=== PATIENT | male | born 1930 | race Caucasian/White ===

== ENCOUNTER 2016-06-17 19:38 | Emergency (ER) | payer MEDICARE, OTHER ==
[~2016-06-17] VITALS: Ht 154.9 cm; Wt 78.5 kg
[~2016-06-17 19:38] MED LIST: ALBU8.5H5 IH; AMIO200T PO; APIX2.5T PO; ASPI-664 PO; ATOR10TA65 PO; BENZ100C70 PO; BUSP10TA2 PO; CARV3.12 PO; DOCU250C58 PO; FERR-55 PO; ICOS1CAP PO; LEVO88TA3 PO; MONT10TA21 PO; OLME5TAB4 PO; PANT40TA3 PO; PRED50TA PO; SPIR25TA76 PO; TERA2CAP PO
[2016-06-17 19:46] VITALS: Ht 154.9 cm; Wt 78.5 kg
--- NOTE | 2016-06-17 20:37 | RADRPT ---
PROCEDURE: XR Chest. CLINICAL INDICATION: Trauma. Chest pain. TECHNIQUE: Single frontal view. COMPARISON: 05/12/2015. FINDINGS: The lungs are clear. The heart size is enlarged. There is calcification in the aorta consistent with atherosclerosis. T here is a left-sided dual lead permanent pacemaker. There is no pleural effusion. There is no pneumothorax. IMPRESSION: 1. Cardiomegaly. 2. Atherosclerosis. 3. Permanent pacemaker. 4. Clear lungs. RPTAT: QQ .Newton Barros MD, MD Date Time Electronically viewed and signed by .Newton Barros MD, MD on 06/17/2016 20:37 .R/
[2016-06-17] MEDS ORDERED: SPIR25TA76 PO (20:49)
[2016-06-17] MEDS ORDERED: OLME5TAB4 PO (20:50)
[2016-06-17] MEDS ORDERED: ASPI-699 PO (20:50)
[2016-06-17] MEDS ORDERED: MONT10TA24 PO (20:50)
[2016-06-17] MEDS ORDERED: PANT40TA4 PO (20:51)
[2016-06-17] MEDS ORDERED: AMIO200T2 PO (20:51)
[2016-06-17] MEDS ORDERED: ATOR10TA65 PO (20:52)
[2016-06-17] MEDS ORDERED: TERA2CAP PO (20:52)
[2016-06-17] MEDS ORDERED: CARV3.1260 PO (20:53)
[2016-06-17] MEDS ORDERED: FER325 PO (20:53)
[2016-06-17] MEDS ORDERED: DOCU250C58 PO (20:54)
[2016-06-17] MEDS ORDERED: OMEG1CAP2 PO (20:54)
[2016-06-17] MEDS ORDERED: ICOS1CAP PO (20:55)
[2016-06-17] MEDS ORDERED: LEVO100T87 PO (20:58)
[2016-06-17] MEDS ORDERED: APIX2.5T PO (20:58)
[2016-06-17] MEDS ORDERED: ALBU90AE INHALATION (20:59)
[2016-06-17] MEDS ORDERED: IBUP-1542 PO (21:55)
[2016-06-17] MEDS ORDERED: ALBU8.5H3 INH (21:55)
[2016-06-17] MEDS ORDERED: AZIT250T94 PO (21:55)
[2016-06-17] MEDS ORDERED: PRED20TA PO (21:55)
--- NOTE | 2016-06-17 22:03 | ERD ---
ER Documentation Chief Complaint Date/Time DATE: 06/17/16 TIME: 22:01 Chief Complaint persistent cough more than 10 days, finished atb 2 days ago hx of ca HPI This is a 85-year-old male who is here for a cough for 10 days. The patient took an antibiotic presumably amoxicillin for 10 days and is not better. Patient is here with his who is also an ER patient and is here with his daughter who all have the same symptoms of 10 days of cough. The patient does not have a fever but says his chest wall is so sore from coughing so much. He is not having chest pain at rest but only with cough. He has a dry cough most the time with an occasional clear productive sputum. No shortness of breath or increased work of breathing no back pain no respiratory distress no abdominal pain vomiting diarrhea. ROS All systems reviewed and are negative except as per history of present illness. Medications Home Meds Active Scripts Prednisone* (Prednisone*) 20 Mg Tab, 60 MG PO DAILY for 5 Days, TAB Prov:TOPHER ROY DO 06/17/16 Albuterol Sulfate* (Proair HFA*) 8.5 Gm Hfa.aer.ad, 2 PUFF INH Q4, #1 INHALER Prov:TOPHER ROY DO 06/17/16 Azithromycin* (Zithromax*) 250 Mg Tablet, 250 MG PO .ZPACK DIRECTED, #6 TAB TAKE 500 MG (2 TABS) THE FIRST DAY THEN 250 MG (1 TAB) DAYS 2-5 Prov:TOPHER ROY DO 06/17/16 Ibuprofen* (Motrin*) 600 Mg Tab, 600 MG PO Q6 for PAIN, #30 TAB Prov:TOPHER ROY DO 06/17/16 Reported Medications Albuterol Sulfate (Proair Respiclick) 90 Mcg Aer.pow.ba, 1 PUFF INHALATION Q4, # 1 BOTTLE 06/17/16 Levothyroxine Sodium* (Levothyroxine Sodium*) 100 Mcg Tablet, 100 MCG PO BEFORE BREAKFAST, #30 TAB 06/17/16 Apixaban* (Eliquis*) 2.5 Mg Tablet, 2.5 MG PO BID, TAB 06/17/16 Icosapent Ethyl (VASCEPA) 1 Gm Capsule, 1 GM PO DAILY, CAP 06/17/16 Docusate Sodium* (Colace*) 250 Mg Capsule, 250 MG PO BID, #60 CAP 06/17/16 [place]-3 Acid Ethyl Esters (Lovaza) 1 Gm Capsule, 4 GM PO DAILY, CAP 06/17/16 Carvedilol* (Carvedilol*) 3.125 Mg Tablet, 3.125 MG PO DAILY, #60 TAB 06/17/16 Ferrous Sulfate* (Ferrous Sulfate*) 325 Mg Tabec, 325 MG PO DAILY, TAB 06/17/16 Atorvastatin Calcium (Atorvastatin Calcium) 10 Mg Tablet, 10 MG PO QHS, #30 TAB 06/17/16 Terazosin Hcl* (Terazosin Hcl*) 2 Mg Capsule, 2 MG PO HS, CAP 06/17/16 Amiodarone Hcl* (Amiodarone Hcl*) 200 Mg Tablet, 200 MG PO DAILY, #30 TAB 06/17/16 Pantoprazole* (Pantoprazole*) 40 Mg Tablet.dr, 40 MG PO DAILY, TAB 06/17/16 Olmesartan Medoxomil (Benicar) 5 Mg Tablet, 5 MG PO DAILY, #30 TAB 06/17/16 Montelukast Sodium* (Montelukast Sodium*) 10 Mg Tablet, 10 MG PO QHS, #30 TAB 06/17/16 Aspirin* (Checo Aspirin* Chew) 81 Mg Tab.chew, 81 MG PO DAILY, TAB.CHEW 06/17/16 Spironolactone* (Aldactone*) 25 Mg Tablet, 25 MG PO DAILY, #30 TAB 06/17/16 Discontinued Reported Medications Apixaban* (Eliquis*) 2.5 Mg Tablet, 2.5 MG PO BID, TAB 05/12/15 Terazosin Hcl* (Terazosin Hcl*) 2 Mg Capsule, 2 MG PO HS, CAP 05/12/15 Amiodarone Hcl* (Amiodarone Hcl*) 200 Mg Tablet, 200 MG PO DAILY, TAB 05/12/15 Pantoprazole* (Protonix*) 40 Mg Tablet.dr, 40 MG PO DAILY, TAB 05/12/15 Spironolactone* (Aldactone*) 25 Mg Tablet, 25 MG PO DAILY, TAB 05/12/15 Olmesartan Medoxomil (Benicar) 5 Mg Tablet, 5 MG PO DAILY, TAB 11/27/15 Montelukast Sodium* (Singulair*) 10 Mg Tablet, 10 MG PO HS, TAB 05/12/15 Levothyroxine Sodium* (Levothyroxine Sodium*) 88 Mcg Tablet, 88 MCG PO AC BREAKFAST, TAB 05/12/15 Icosapent Ethyl (VASCEPA) 1 Gm Capsule, 1 GM PO BID 05/12/15 Ferrous Sulfate* (Ferrous Sulfate*) 325 Mg Tablet, 325 MG PO DAILY, TAB 05/12/15 Docusate Sodium* (Colace*) 250 Mg Capsule, 250 MG PO BID, CAP 05/12/15 Carvedilol* (Coreg*) 3.125 Mg Tablet, 3.125 MG PO BID, TAB 05/12/15 Buspirone Hcl* (Buspirone Hcl*) 10 Mg Tab, 10 MG PO BID, TAB 05/12/15 Atorvastatin Calcium (Atorvastatin Calcium) 10 Mg Tablet, 10 MG PO HS, TAB 05/12/15 Aspirin* (Aspirin* EC) 81 Mg Tablet.dr, 81 MG PO DAILY, TAB 05/12/15 Discontinued Scripts Prednisone* (Prednisone*) 50 Mg Tablet, 50 MG PO once for 5 Days, TAB Take one tablet by mouth once daily for 5 days. Prov:CHRISTINE DIOR 05/12/15 Albuterol Sulfate* (Albuterol Sulfate* HFA) 8.5 Gm Hfa.aer.ad, 2 PUFF IH Q6, #1 EA Prov:CHRISTINE DIOR 05/12/15 Benzonatate* (Tessalon Perle*) 100 Mg Capsule, 200 MG PO Q8H Y for COUGH, #20 CAP Prov:CHRISTINE DIOR 05/12/15 Allergies Allergies: Coded Allergies: No Known Drug Allergy (Verified Allergy, Unknown, 06/17/16) PMhx/Soc History of Surgery: Yes (BILATERAL TKR, PACEMAKER, HERNIA,APPENDIX) Anesthesia Reaction: No Hx Neurological Disorder: No Hx Respiratory Disorders: Yes (asthma) Hx Cardiac Disorders: Yes (HTN, PACEMAKER,HIGH CHOLESTEROL) Hx Psychiatric Problems: No Hx Miscellaneous Medical Probl: Yes (DM, PT HAS MOUTH INFECTION-GETTING IV DIFLUCAN @ [facility]) Hx Alcohol Use: No Hx Substance Use: No Hx Tobacco Use: No Smoking Status: Never smoker FmHx Family History: No coronary disease Physical Exam Vitals Vital Signs Date Time Temp Pulse Resp B/P Pulse Ox O2 Delivery O2 Flow Rate FiO2 06/17/16 19:46 97.7 79 20 111/58 98 Physical Exam Const: Well-developed, well-nourished Head: Atraumatic, normocephalic Eyes: Normal Conjunctiva, PERRLA, EOMI, normal sclera, no nystagmus ENT: Normal External Ears, Nose and Mouth, moist mucus membranes. Neck: Full range of motion. No meningismus, no lymphadenopathy. Resp: Clear to auscultation bilaterally, no wheezing, rhonchi, rales, bilateral anterior chest wall is tender to palpation Cardio: Regular rate and rhythm, no murmurs, S1 S2 present Abd: Soft, non tender x 4, non distended. Normal bowel sounds, no guarding or rebound, no pulsitile abdominal masses or bruits Skin: No petechiae or rashes, no ecchymosis , no maculopapular rash Back: No midline or flank tenderness Ext: No cyanosis, or edema, FROM x 4, normal inspection, neurovascularly intact x 4 Neur: Awake and alert, STR 5/5 x 4, sensation intact x 4, no focal findings, cerebellum intact Psych: Normal Mood and Affect Procedures/MDM PROCEDURE: XR Chest. CLINICAL INDICATION: Trauma. Chest pain. TECHNIQUE: Single frontal view. COMPARISON: 05/12/2015. FINDINGS: The lungs are clear. The heart size is enlarged. There is calcification in the aorta consistent with atherosclerosis. There is a left-sided dual lead permanent pacemaker. There is no pleural effusion. There is no pneumothorax. IMPRESSION: 1. Cardiomegaly. 2. Atherosclerosis. 3. Permanent pacemaker. 4. Clear lungs. RPTAT: QQ .Newton Barros MD, MD Date Time Electronically viewed and signed by .Newton Barros MD, MD on 06/17/2016 20:37 .R/ CC: LEKKOS,APOSTOLOS A. DO Patient has chest wall strain from coughing and bronchitis will treat with Prelone, albuterol and Motrin Departure Diagnosis: Primary Impression: Bronchitis Additional Impression: Chest wall pain Condition: Stable Patient Instructions: Bronchitis With Wheezing (Adult), Chest Wall Strain TOPHER ROY DO Jun 17, 2016 22:03
[2016-06-17 22:38] VITALS: BP 108/56; PULSE 74; RESP 18; TEMP 98.1
== END 2016-06-17 22:39 | disposition home or self-care (01) ==
LOC: E/R 19:38
DX: J20.9 Acute bronchitis, unspecified (principal); R07.89 Other chest pain; I10 Essential (primary) hypertension; E11.9 Type 2 diabetes mellitus without complications; J45.909 Unspecified asthma, uncomplicated; Z79.82 Long term (current) use of aspirin; Z95.0 Presence of cardiac pacemaker
CPT/HCPCS: 71010

== ENCOUNTER 2016-09-03 19:59 | Inpatient (IN) | payer MEDICARE, OTHER ==
[~2016-09-03] VITALS: Ht 160 cm; Wt 75.2 kg
[~2016-09-03 19:59] MED LIST changes: +ALBU8.5H3 INH; -ALBU8.5H5 IH; +ALBU90AE INHALATION; -AMIO200T PO; +AMIO200T2 PO; -ASPI-664 PO; +ASPI-699 PO; +AZIT250T94 PO; -BENZ100C70 PO; -BUSP10TA2 PO; -CARV3.12 PO; +CARV3.1260 PO; +FER325 PO; -FERR-55 PO; +IBUP-1542 PO; +LEVO100T87 PO; -LEVO88TA3 PO; -MONT10TA21 PO; +MONT10TA24 PO; +OMEG1CAP2 PO; -PANT40TA3 PO; +PANT40TA4 PO; +PRED20TA PO; -PRED50TA PO; +SPIR25TA PO; -SPIR25TA76 PO; -TERA2CAP PO; +TERA2CAP3 PO
[2016-09-03] MEDS ORDERED: ONDANSETRON 4 MG INJ IV STA (22:49)
[2016-09-03] MEDS ORDERED: SOD CHLORIDE 0.9% 500 ML IV STA (22:49)
[2016-09-03] MEDS ORDERED: morphine 2 MG INJ IV STA (22:49)
[2016-09-03 23:26] LABS: ADD SCAN DIFF NO
[2016-09-03 23:29] LABS: HEMATOCRIT 32.9 % (42.0-52.0); MEAN CORPUSCULAR HEMOGLOBIN 31.7 pg (29.0-33.0); MEAN CORPUSCULAR HGB CONC 33.4 g/dl (32.0-37.0); MEAN CORPUSCULAR VOLUME 94.8 fl (82.0-101.0); MEAN PLATELET VOLUME 8.9 fl (7.4-10.4); PLATELET COUNT 206 10^3/UL (140-415); RED BLOOD COUNT 3.47 10^6/ul (4.70-6.10); RED CELL DISTRIBUTION WIDTH 13.2 % (11.5-14.5); WHITE BLOOD COUNT 5.8 10^3/ul (4.8-10.8)
[2016-09-03 23:40] LABS: ALBUMIN 3.3 g/dl (3.3-4.9)
[2016-09-03 23:41] LABS: POTASSIUM 5.2 mmol/L (3.5-5.1)
[2016-09-03 23:43] LABS: ALBUMIN/GLOBULIN RATIO 0.91; BILIRUBIN,INDIRECT 0.2 mg/dl (0-1.1); BILIRUBIN,TOTAL 0.2 mg/dl (0.2-1.3); CREATININE 0.93 mg/dl (0.61-1.24); TOTAL PROTEIN 6.9 g/dl (6.1-8.1)
[2016-09-03 23:44] LABS: CALCIUM 8.4 mg/dl (8.4-10.2)
--- NOTE | 2016-09-03 23:45 | RADRPT ---
PROCEDURE: CT Abdomen and Pelvis without contrast. CLINICAL INDICATION: Nausea and diarrhea. History of appendectomy and hernia. TECHNIQUE: A CT scan of the abdomen and pelvis was performed without intravenous contrast. Diane l and sagittal reformatted images were generated. Images were reviewed on a high-resolution PACS wor kstation. CTDIvol: 14.79 mGy. DLP: 845.94 mGy-cm. One or more of the following dose reduction techniques were used: - Automated exposure control. - Adjustment of the mA and/or kV according to patient size. - Use of iterative reconstruction technique. COMPARISON: 03/21/2013 FINDINGS: There are minimal atelectatic changes at the right lung base. Cardiac pacemaker leads are partially imaged. Evaluation of the abdominal and pelvic viscera is limited by the lack of oral and intravenous contra st. The liver is unremarkable. The gallbladder is normal in appearance. The common bile duct is not dila perla. The spleen is not enlarged. No pancreatic lesion is identified and there is no pancreatic ducta l dilatation. The adrenal glands are unremarkable. The kidneys are normal in size. There is mild symmetric perinephric fat stranding, probably age-rela perla. No hydronephrosis is seen. No urinary stone is identified. The small and large bowel are normal in caliber. There is no bowel wall thickening.There is moderate descending and sigmoid colon diverticulosis. The appendix is normal. The urinary bladder is unremarkable. The pelvic organs are within normal limits. There is a moderate fat containing right inguinal hernia. Mild new abdominal and pelvic retroperitoneal fat stranding is noted, asymmetric to the left. There is also increased prominence of the retroperitoneal lymph nodes in these regions, the largest measur ing 9 mm short axis in the left periaortic region. There is no ascites. No pneumoperitoneum is seen. There are moderate arterial calcifications. No suspicious osseous lesion is idenitified. There are moderate degenerative changes at L2-L3 and L4 -L5. IMPRESSION: 1. Mildly abdominal and pelvic retroperitoneal fat stranding, asymmetric to the left. There is also increased prominence of the retroperitoneal lymph nodes in these regions. These findings are nonsp ecific but might represent metastatic lymphadenopathy with lymphedema, or possibly an inflammatory p rocess with reactive lymphadenopathy. 2. Normal appendix. 3. Moderate descending and sigmoid colon diverticulosis. 4. No obstructive uropathy or urinary stone. 5. Moderate fat-containing right inguinal hernia. RPTAT: HTAR .Yan Starr MD, Date Time Electronically viewed and signed by .Yan Starr MD, on 09/03/2016 23:45 .R/
[2016-09-04] MEDS ORDERED: PIPER-TAZO 3.375 GM IV (PMX) 100 ML IVPB ONE (01:00)
[2016-09-04] MEDS ORDERED: metroNIDAZOLE 500 MG/NS (PMX) 100 ML IVPB ONE (01:00)
[2016-09-04 01:14] LABS: ADD UMIC NO; URINE BILIRUBIN (Dip) NEGATIVE (NEGATIVE); URINE BLOOD (Dip) NEGATIVE (NEGATIVE); URINE COLOR AMBER (YELLOW); URINE GLUCOSE (Dip) NEGATIVE (NEGATIVE); URINE KETONES (Dip) NEGATIVE (NEGATIVE); URINE LEUKOCYTE ESTERASE (Dip) NEGATIVE (NEGATIVE); URINE NITRITE (Dip) NEGATIVE (NEGATIVE); URINE TOTAL PROTEIN (Dip) NEGATIVE (NEGATIVE); URINE UROBILINOGEN (Dip) 0.2 E.U./dL (0.1-1.0)
[2016-09-04 02:23] LABS: LYMPHOCYTES # 0.6 10^3/ul (0.8-2.9); MONOCYTE # 0.8 10^3/ul (0.3-0.9); NEUTROPHIL # 4.3 10^3/ul (1.6-7.5)
[2016-09-04 02:24] LABS: EOSINOPHILS # 0.1 10^3/ul (0.0-0.5)
[2016-09-04 02:30] VITALS: TEMP 98
--- NOTE | 2016-09-04 02:31 | ERA ---
ER Documentation Chief Complaint Date/Time DATE: 09/04/16 TIME: 02:21 Chief Complaint abd pain, n/v/d HPI This is an 85-year-old male with abdominal pain nausea vomiting diarrhea on and off for the past 3-4 days. Said 2-3 episodes of vomiting which nonbilious nonbloody. 4-5 episodes of diarrhea per day for the past 3 days nonbloody. No fevers no chills no sick contacts no exposures. Pain is mild to moderate intensity crampy in nature and tends to come with an episode of vomiting or diarrhea. ROS All systems reviewed and are negative except as per history of present illness. Medications Home Meds Active Scripts Prednisone* (Prednisone*) 20 Mg Tab, 60 MG PO DAILY for 5 Days, TAB Prov:TOPHER ROY DO 06/17/16 Albuterol Sulfate* (Proair HFA*) 8.5 Gm Hfa.aer.ad, 2 PUFF INH Q4, #1 INHALER Prov:TOPHER ROY DO 06/17/16 Azithromycin* (Zithromax*) 250 Mg Tablet, 250 MG PO .ZPACK DIRECTED, #6 TAB TAKE 500 MG (2 TABS) THE FIRST DAY THEN 250 MG (1 TAB) DAYS 2-5 Prov:TOPHER ROY DO 06/17/16 Ibuprofen* (Motrin*) 600 Mg Tab, 600 MG PO Q6 for PAIN, #30 TAB Prov:TOPHER ROY DO 06/17/16 Reported Medications Albuterol Sulfate (Proair Respiclick) 90 Mcg Aer.pow.ba, 1 PUFF INHALATION Q4, # 1 BOTTLE 06/17/16 Levothyroxine Sodium* (Levothyroxine Sodium*) 100 Mcg Tablet, 100 MCG PO BEFORE BREAKFAST, #30 TAB 06/17/16 Apixaban* (Eliquis*) 2.5 Mg Tablet, 2.5 MG PO BID, TAB 06/17/16 Icosapent Ethyl (VASCEPA) 1 Gm Capsule, 1 GM PO DAILY, CAP 06/17/16 Docusate Sodium* (Colace*) 250 Mg Capsule, 250 MG PO BID, #60 CAP 06/17/16 [place]-3 Acid Ethyl Esters (Lovaza) 1 Gm Capsule, 4 GM PO DAILY, CAP 06/17/16 Carvedilol* (Carvedilol*) 3.125 Mg Tablet, 3.125 MG PO DAILY, #60 TAB 06/17/16 Ferrous Sulfate* (Ferrous Sulfate*) 325 Mg Tabec, 325 MG PO DAILY, TAB 06/17/16 Atorvastatin Calcium (Atorvastatin Calcium) 10 Mg Tablet, 10 MG PO QHS, #30 TAB 06/17/16 Terazosin Hcl* (Terazosin Hcl*) 2 Mg Capsule, 2 MG PO HS, CAP 06/17/16 Amiodarone Hcl* (Amiodarone Hcl*) 200 Mg Tablet, 200 MG PO DAILY, #30 TAB 06/17/16 Pantoprazole* (Pantoprazole*) 40 Mg Tablet.dr, 40 MG PO DAILY, TAB 06/17/16 Olmesartan Medoxomil (Benicar) 5 Mg Tablet, 5 MG PO DAILY, #30 TAB 06/17/16 Montelukast Sodium* (Montelukast Sodium*) 10 Mg Tablet, 10 MG PO QHS, #30 TAB 06/17/16 Aspirin* (Checo Aspirin* Chew) 81 Mg Tab.chew, 81 MG PO DAILY, TAB.CHEW 06/17/16 Spironolactone* (Aldactone*) 25 Mg Tablet, 25 MG PO DAILY, #30 TAB 06/17/16 Allergies Allergies: Coded Allergies: No Known Drug Allergy (Verified Allergy, Unknown, 06/17/16) PMhx/Soc History of Surgery: Yes (BILATERAL TKR, PACEMAKER, HERNIA,APPENDIX) Anesthesia Reaction: No Hx Neurological Disorder: No Hx Respiratory Disorders: Yes (asthma) Hx Cardiac Disorders: Yes (HTN, PACEMAKER,HIGH CHOLESTEROL) Hx Psychiatric Problems: No Hx Miscellaneous Medical Probl: Yes (DM, PT HAS MOUTH INFECTION-GETTING IV DIFLUCAN @ [facility]) Hx Alcohol Use: No Hx Substance Use: No Hx Tobacco Use: No Smoking Status: Never smoker Physical Exam Vitals Vital Signs Date Time Temp Pulse Resp B/P Pulse Ox O2 Delivery O2 Flow Rate FiO2 09/04/16 01:29 98.0 72 18 91/47 94 Room Air 09/03/16 23:03 76 19 110/98 100 Room Air 09/03/16 20:08 97.8 85 20 101/53 99 Physical Exam Const: [] Head: Atraumatic Eyes: Normal Conjunctiva ENT: Normal External Ears, Nose and Mouth. Neck: Full range of motion..~ No meningismus. Resp: Clear to auscultation bilaterally Cardio: Regular rate and rhythm, no murmurs Abd: Soft, non tender, non distended. Normal bowel sounds Skin: No petechiae or rashes Back: No midline or flank tenderness Ext: No cyanosis, or edema Neur: Awake and alert Psych: Normal Mood and Affect Result Diagram: 09/03/16224909/03/162249 Results 24 hrs Laboratory Tests Test 09/03/16 00:00 09/03/16 22:50 Urine Bilirubin NEGATIVE Urine Clarity CLEAR Urine Color MARTINE Urine Glucose NEGATIVE% Urine Hemoglobin NEGATIVE Urine Ketones NEGATIVE Urine Leukocyte Esterase NEGATIVE Urine Nitrite NEGATIVE Urine Specific [place] 1.020 Urine Total Protein NEGATIVE Urine Urobilinogen 0.2 E.U./dL Urine pH 5.5 Alanine Aminotransferase (ALT/SGPT) 22IU/L Albumin 3.3g/dl Albumin/Globulin Ratio 0.91 Alkaline Phosphatase 97IU/L Anion Gap 15 Aspartate Amino Transf (AST/SGOT) 24IU/L Basophils # 0.010^3/ul Basophils % 0.2% Blood Urea Nitrogen 24mg/dl Calcium Level 8.4mg/dl Carbon Dioxide Level 25mmol/L Chloride Level 99mmol/L Creatinine 0.93mg/dl Direct Bilirubin 0.00mg/dl Eosinophils # 0.210^3/ul Eosinophils % 2.6% Globulin 3.60g/dl Glucose Level 150mg/dl Hematocrit 32.9% Hemoglobin 11.0g/dl Indirect Bilirubin 0.2mg/dl Lipase 45U/L Lymphocytes # 1.010^3/ul Lymphocytes % 17.6% Mean Corpuscular Hemoglobin 31.7pg Mean Corpuscular Hemoglobin Concent 33.4g/dl Mean Corpuscular Volume 94.8fl Mean Platelet Volume 8.9fl Monocytes # 1.210^3/ul Monocytes % 21.0% Neutrophils # 3.410^3/ul Neutrophils % 58.3% Nucleated Red Blood Cells # 0.010^3/ul Nucleated Red Blood Cells % 0.0/100WBC Platelet Count 36113^3/UL Potassium Level 5.2mmol/L Red Blood Count 3.4710^6/ul Red Cell Distribution Width 13.2% Sodium Level 134mmol/L Total Bilirubin 0.2mg/dl Total Protein 6.9g/dl White Blood Count 5.810^3/ul Current Medications Medications (Trade) Dose Ordered Sig/Shila Route PRN Reason Start Time Stop Time Status Last Admin Dose Admin Sodium Chloride (NS) 500 ml @ 500 mls/hr Q1H STAT IV 09/03/16 22:49 09/03/16 23:48 DC 09/03/16 23:08 Morphine Sulfate (morphine) 2 mg ONCE STAT IV 09/03/16 22:49 09/03/16 22:50 DC 09/03/16 23:08 Ondansetron HCl 4 mg 4 mg ONCE STAT IV 09/03/16 22:49 09/03/16 22:50 DC 09/03/16 23:08 Piperacillin Sod/ Tazobactam Sod 100 ml @ 200 mls/hr ONCE ONCE IVPB 09/04/16 01:00 09/04/16 01:29 DC 09/04/16 00:55 Metronidazole (Flagyl 500 Mg (Pmx)) 100 ml @ 100 mls/hr ONCE ONCE IVPB 09/04/16 01:00 09/04/16 01:59 DC 09/04/16 01:29 Procedures/MDM Medical decision-making: Patient has evidence of intra-abdominal infection versus early metastatic disease. Patient will need to be admitted for evaluation and management. Patient will be admitted to Dr. Cirilo Coronado Diagnosis: Primary Impression: Abdominal pain Qualified Code: R10.84 - Generalized abdominal pain Condition: Serious JERRY SPEARS Sep 04, 2016 02:31
[2016-09-04 03:54] VITALS: Ht 160 cm; Wt 75.2 kg
[2016-09-04 03:56] VITALS: BP 98/50; PULSE 74; RESP 16
[2016-09-04] MEDS ORDERED: ACETAMINOPHEN 325 MG TAB PO PRN (05:00)
[2016-09-04] MEDS ORDERED: hydrALAzine 20 MG INJ IV PRN ×2 (05:00)
[2016-09-04] MEDS ORDERED: ONDANSETRON 4 MG INJ IV PRN (05:00)
[2016-09-04] MEDS: 1/2 NS + KCL 20 MEQ 1,000 ML IV SCH ×2 (05:59→23:17)
[2016-09-04] MEDS: PIPER-TAZO 3.375 GM IV (PMX) 100 ML IVPB SCH ×4 (06:00→23:34)
[2016-09-04 06:43] LABS: ADD SCAN DIFF NO
[2016-09-04 06:46] LABS: HEMATOCRIT 29.5 % (42.0-52.0); HEMOGLOBIN 9.8 g/dl (14.0-18.0); MEAN CORPUSCULAR HEMOGLOBIN 31.3 pg (29.0-33.0); MEAN CORPUSCULAR HGB CONC 33.2 g/dl (32.0-37.0); MEAN CORPUSCULAR VOLUME 94.2 fl (82.0-101.0); MEAN PLATELET VOLUME 8.8 fl (7.4-10.4); PLATELET COUNT 182 10^3/UL (140-415); RED BLOOD COUNT 3.13 10^6/ul (4.70-6.10); RED CELL DISTRIBUTION WIDTH 13.2 % (11.5-14.5); WHITE BLOOD COUNT 4.3 10^3/ul (4.8-10.8)
[2016-09-04 07:00] VITALS: BP 111/59; RESP 20
[2016-09-04 07:05] LABS: POTASSIUM 4.7 mmol/L (3.5-5.1)
[2016-09-04 07:08] LABS: CALCIUM 8.2 mg/dl (8.4-10.2); CREATININE 0.88 mg/dl (0.61-1.24)
[2016-09-04] MEDS ORDERED: MECL-77 PO (09:44)
[2016-09-04] MEDS ORDERED: HYDR25TA6 PO (09:47)
[2016-09-04] MEDS: ENOXAPARIN 40 MG/0.4 ML SYG SC SCH (09:50)
[2016-09-04 09:58] LABS: ANISOCYTOSIS 1+; EOSINOPHILS # 0.1 10^3/ul (0.0-0.5); HYPOCHROMASIA 1+; LYMPHOCYTES # 0.9 10^3/ul (0.8-2.9); MONOCYTE # 0.4 10^3/ul (0.3-0.9); NEUTROPHIL # 2.7 10^3/ul (1.6-7.5)
[2016-09-04] MEDS: AMIODARONE 200 MG TAB PO SCH (17:10)
--- NOTE | 2016-09-04 17:10 | HP ---
DATE OF ADMISSION: 09/04/2016 CHIEF COMPLAINT: Abdominal pain & patient was unable to void. HISTORY OF PRESENT ILLNESS: The patient is an 85-year-old gentleman with prior medical history positive for hypertension, diabetes mellitus diet controlled, history of pacemaker, history of asthma, history of skin cancer on the arms and he follows with Dr. Barboza and the patient also stated that he follows with Dr. Nunez as a primary care doctor and follows with Dr. Bingham in cardiology. He also stated that he has a known history of BPH and follows with a urologist does not remember the name. The patient was in his usual health until yesterday that he noticed he was not able to urinate and feel bloating and fullness in the lower abdomen. Patient associated that with his BPH symptoms and patient also stated he is compliant with his medication, takes his routine medication. In the emergency room, patient underwent the CT scan of the abdomen and pelvis which revealed: 1. Mild mid abdominal and pelvic retroperitoneal fat stranding, symmetric to the left. There is also increased prominence of the retroperitoneum lymph nodes in this region. The findings were nonspecific, but might represent metastatic lymphadenopathy with lymphedema, possibly inflammatory process with reactive lymphadenopathy. 2. Normal appendix. 3. Moderate descending and sigmoid colon diverticulosis. 4. No obstructive uropathy or urinary stone. 5. Moderate fat containing right inguinal hernia. Patient was given Zofran, morphine and started on IV fluids and also getting Zosyn, Flagyl and admitted for further evaluation and management to medical/ surgical floor. The patient denies any fever or chills. Denies any chest pain , denies any shortness of breath, denies any palpitations, denies any bilateral lower extremities edema. Denies nausea and vomiting. PAST MEDICAL HISTORY: Per HPI. PAST SURGICAL HISTORY: Status post pacemaker, status post bilateral knee surgery, status post hernia repair in 2007. FAMILY HISTORY: Noncontributory. SOCIAL HISTORY: Patient lives at home with his family, patient denies any tobacco use, denies any alcohol use, denies any illicit drug use. ALLERGIES: NO KNOWN ALLERGIES. MEDICATIONS ON ADMISSION: 1. Ibuprofen 2. Zithromax. 3. Albuterol. 4. Prednisone. 5. Aldactone. 6. Aspirin. 7. Montelukast. 8. Benicar. 9. Protonix. 10. Amiodarone. 11. Terazosin. 12. Atorvastatin. 13. Ferrous sulfate. 14. Coreg. 15. Colace. 16. Lovaza. 17. Vascepa. 18. Eliquis. 19. Levothyroxine. 20. Albuterol. REVIEW OF SYSTEMS: A 12-point review of systems is negative unless what mentioned in the HPI. PHYSICAL ASSESSMENT: GENERAL: Well-developed, well-nourished male in no acute distress, alert and oriented x4. VITAL SIGNS: Temperature is 98.7, pulse is 75, blood pressure 111/59, respiratory rate 20, oxygen saturation 98% on room air. HEENT: Head is atraumatic, normocephalic. Pupils equal, round, reactive to light and accommodation. Oral mucosa is pink and moist. NECK: Supple, no cervical lymphadenopathy, no thyromegaly. CHEST: Lungs clear bilaterally. There is no rhonchi, wheezes, rales noted. CARDIOVASCULAR: Normal S1, S2. No murmurs, gallops, clicks, rubs noted. Patient has a permanent pacemaker left chest. ABDOMEN: Round, soft, nondistended, nontender. Bowel sounds present. EXTREMITIES: No edema, clubbing, cyanosis. Pulses equal bilaterally 2+. SKIN: There is no rash or petechiae noted. NEUROLOGICAL: The patient is awake, alert and oriented x4. No focal deficits noted. Motor strength is 5/5 in all extremities. LABORATORY DATA: On admission, CBC: White blood cells 5.8, hemoglobin 11.0, hematocrit 32.9, platelets 206. Chemistry: Sodium is 134, potassium 5.2, chloride 99, carbon dioxide 25, anion gap 15, BUN is 24, creatinine 0.93, AST 24 , ALT 22, alkaline phosphatase 97, lipase is 45. Urinalysis is negative. ASSESSMENT AND PLAN: 1. Urinary retention. Continue patient on terazosin. We will ask Dr. Taylor to see patient in urology consultation. Continue to monitor intake and output. 2. Abdominal pain of unknown etiology. Dr. Dong will be following in gastroenterology consultation. The patient's CT with lymphadenopathy will ask Dr. Toledo who is covering for Dr. Cardona to evaluate the patient in hematology/ oncology consultation. 3. Hypertension. Continue antihypertensive medication from home. 4. Permanent pacemaker. 5. Hypothyroidism. Continue Synthroid. 6. Asthma. Continue breathing treatment. 7. Congestive heart failure. Continue to monitor intake and output. Dr. Bingham will be following the patient in cardiology consultation. We will continue Lovenox for deep venous thrombosis prophylaxis and Protonix for peptic ulcer disease prophylaxis. Further recommendations based on clinical course. Plan of care discussed with Dr. Allen. Dictated By: LEE LARA [employer] DIRECTOR for GARLAND ALLEN MD SR/NTS Conf#: [id number] DID#: [id number] MTDD
--- NOTE | 2016-09-04 19:27 | CONS ---
DATE OF ADMISSION: 09/04/2016 DATE OF CONSULTATION: 09/04/2016 REQUESTING PHYSICIAN: Oswaldo Wilson MD Dear Dr. Wilson: Thank you for asking me to see this patient in urological consultation. HISTORY OF PRESENT ILLNESS: This is an 85-year-old male who presented to the emergency room complai sakina that he has been having difficulty holding his urine. He has had urgency and he had urinary in continence on a couple of occasions. The patient does have a history of nodular prostate, has had a prostate biopsy back in 2005 and that did not show any cancer. At that time, his PSA was elevated and the number is not available at the present. The patient denies having any other urological prob massimo. He describes his stream as regular, is not strong neither is it too slow. He does urinate at night between 2 to 5 times. During the day he voids every half hour or even sometimes every 2 to 3 hours. He denies any history of gross hematuria, no dysuria. PAST MEDICAL HISTORY: Significant for a history of hypertension, diabetes mellitus, history of a pa cemaker, asthma, skin cancer, dyslipidemia, and hypothyroidism. ALLERGIES: THE PATIENT HAS NO KNOWN DRUG ALLERGIES. SOCIAL HISTORY: He does not smoke, does not drink any alcohol, and there is no history of drug abus e. PAST SURGICAL HISTORY: Includes, 1. Bilateral knee replacements. 2. Right inguinal hernia repair but now he does have recurrence of the right inguinal hernia. 3. He also does have a surgery for a pacemaker. HOME MEDICATIONS: Include, 1. Ibuprofen 2. Zithromax. 3. Albuterol. 4. Prednisone. 5. Aldactone. 6. Aspirin. 7. Montelukast. 8. Benicar. 9. Protonix. 10. Amiodarone. 11. Terazosin. 12. Atorvastatin. 13. Ferrous sulfate. 14. Coreg. 15. Colace. 16. Lovaza. 17. Vascepa. 18. Eliquis. 19. Levothyroxine. 20. Albuterol. PHYSICAL EXAMINATION: GENERAL: Reveals an elderly male who is awake, alert. He weighs 75.2 kilograms. His height is 63 inches. HEAD AND NECK: Unremarkable. There is no cervical adenopathy and no nodes. The neck is supple. T here is no stiffness. CHEST: He does have a pacemaker over the chest wall. ABDOMEN: Soft. There is no abdominal mass palpable. He does have a right inguinal hernia and scar in the right inguinal area from prior surgery. EXTERNAL GENITALIA: The penis does have plaque on it and he may have Peyronie's disease. Testes ar e normal. RECTAL: Examination revealed nodular and somewhat hard prostate. EXTREMITIES: Lower extremities reveal no edema. VITAL SIGNS: Temperature is 98.7, pulse is 75, respirations 20, blood pressure 111/59. LABORATORY DATA: CBC shows a white count of 4.3, hemoglobin 9.8, hematocrit 29.5, platelet count 18 2,000. The BUN is 21, creatinine 0.88. Sodium 137, potassium 4.7, chloride 104, CO2 26. Urinalysi s has been negative, in fact, he just urinated and the urine is almost water clear. IMAGING: The CT scan of the abdomen and pelvis again showed mild abdominal and pelvic retroperitone al fat stranding, symmetric to the left. There is also increased prominence of the retroperitoneal lymph nodes in these regions. These findings are nonspecific but might represent metastatic lymphad enopathy with lymphedema or possibly inflammatory process with reactive lymphadenopathy. His append ix is normal, he has moderate descending and sigmoid colon diverticulosis. There is no obstructive uropathy or urinary stone, and he does have a moderate fat containing right inguinal hernia. IMPRESSION: Patient has a hard nodular prostate and retroperitoneal adenopathy. One has to rule ou t cancer of the prostate. The patient is able to urinate and there is no evidence of urinary retent ion at the present. RECOMMENDATION: I ordered a stat PSA on the blood that is drawn at the time of admission and I will see if he does urinate, check his postvoid residual with a bladder scan and also will follow him. He may need a prostate biopsy if the PSA is high to rule out the possibility of prostate cancer with metastasis to the retroperitoneal area. Dictated By: YOUSIF RILEY/PRISCILLA Conf#: [id number] DID#: [id number]
[2016-09-04 19:58] VITALS: BP 115/56; RESP 18
[2016-09-04] MEDS: MONTELUKAST 10 MG TAB PO SCH (21:37)
[2016-09-04] MEDS: TERAZOSIN 2 MG CAP PO SCH (21:37)
[2016-09-05 05:16] LABS: ADD SCAN DIFF NO
[2016-09-05 05:20] LABS: HEMATOCRIT 30.9 % (42.0-52.0); HEMOGLOBIN 10.2 g/dl (14.0-18.0); MEAN CORPUSCULAR HEMOGLOBIN 31.2 pg (29.0-33.0); MEAN CORPUSCULAR VOLUME 94.5 fl (82.0-101.0); PLATELET COUNT 195 10^3/UL (140-415); RED BLOOD COUNT 3.27 10^6/ul (4.70-6.10); RED CELL DISTRIBUTION WIDTH 13.3 % (11.5-14.5); WHITE BLOOD COUNT 4.3 10^3/ul (4.8-10.8)
[2016-09-05 05:29] LABS: POTASSIUM 4.5 mmol/L (3.5-5.1)
[2016-09-05] MEDS: PANTOPRAZOLE (EC) 40 MG TAB PO SCH (05:29)
[2016-09-05] MEDS: LEVOTHYROXINE 100 MCG TAB PO SCH (05:29)
[2016-09-05] MEDS: PIPER-TAZO 3.375 GM IV (PMX) 100 ML IVPB SCH ×4 (05:29→23:14)
[2016-09-05 05:32] LABS: CREATININE 0.82 mg/dl (0.61-1.24)
[2016-09-05 05:33] LABS: CALCIUM 8.3 mg/dl (8.4-10.2)
[2016-09-05 06:03] LABS: THYROID STIMULATING HORMONE 4.7 MIU/L (0.465-4.680)
[2016-09-05 08:17] VITALS: BP 112/52; RESP 18
--- NOTE | 2016-09-05 10:03 | CONS ---
DATE OF ADMISSION: 09/04/2016 DATE OF CONSULTATION: 09/05/2016 CARDIOLOGY CONSULTATION REFERRING PHYSICIAN: Garland Allen MD and Lee Lara NP REASON FOR CONSULTATION: History of sick sinus syndrome, cardiomyopathy CHIEF COMPLAINT: Difficulty with urination, nausea, vomiting, abdominal pain. HISTORY OF PRESENT ILLNESS: Thank you for this referral. History is obtained from the patient and extensive review of the old chart. The patient is also very well known to me from outpatient workup . This is a pleasant 85-year-old gentleman with history of hypertension, diabetes, sick si nus syndrome status post permanent pacemaker with history of nonischemic cardiomyopathy, who was adm itted to the hospital with abdominal pain and difficulty with urination. The patient said starting Friday he started having difficulty with his urination as well as abdominal pain, nausea and vomit ing. He came to workup. Workup done included a CT scan which was abnormal and he was admitted for further workup. The patient denies any chest pain. He said he is able to walk around with no chest pain or pressure. Denies any PND, orthopnea to me. PAST MEDICAL HISTORY: History of hypertension, diabetes, history of nonischemic cardiomyopathy, his tory of sick sinus syndrome status post permanent pacemaker, history of possibly asthma, history of hypothyroidism. SOCIAL HISTORY: The patient does not smoke or drink. Lives with the family. ALLERGIES: NO REPORTED ALLERGIES. MEDICATIONS: Prior to admission include: 1. Ibuprofen 2. Prednisone. 3. Aldactone. 4. Aspirin. 5. Benicar. 6. Amiodarone. 7. Lipitor. 8. Coreg. 9. Lovaza. 10. Vascepa. 11. Eliquis. 12. Levothyroxine. 13. Albuterol. REVIEW OF SYSTEMS: He denied all other except for above-mentioned. PHYSICAL EXAMINATION: VITAL SIGNS: Temperature 98, heart rate of 71, blood pressure 112/52, respiratory rate of 18, satur ating 98%. HEENT: Normocephalic, atraumatic. Pupils are equal. CARDIOVASCULAR: Regular rate and rhythm. Systolic murmur. PULMONARY: With no wheezes or rhonchi. GASTROINTESTINAL: Soft, nontender. EXTREMITIES: With no significant lower extremity edema. NEUROLOGIC: Awake and alert. PSYCHIATRIC: Calm, pleasant. GENITOURINARY: Deferred. LABORATORY DATA: WBC of 4.3, hemoglobin 10.2, platelets of 195. Sodium 138, potassium 4.5, BUN of 12, creatinine 0.82, glucose of 114. TSH is 4.7. PSA is 0.6. CTA of the pelvis and abdomen shows mildly abdominal and pelvic retroperitoneal fat stranding. Asym metric to the left. There is also increased prominence of retroperitoneal lymph node. There is nor mal appendix. Moderate descending and sigmoid colon diverticulosis. ASSESSMENT AND PLAN: 1. History of sick sinus syndrome, status post permanent pacemaker. 2. History of paroxysmal atrial fibrillation on anticoagulation at home, currently off for possible GI workup. 3. Possible prostate cancer with abdominal pain, nausea and vomiting, currently has improved. 4. Urinary retention. Follow up with urology. 5. History of thyroid disorder. 6. History of cardiomyopathy, currently stable. 7. Hypertension, under good control. RECOMMENDATIONS: We will continue with the current cardiac care for now. workup is pending. __ ___ will be continued. We will continue to follow along with you. Dictated By: ZAN WINSLOW MD AV/PRISCILLA Conf#: [id number] DID#: [id number] CC: LEE LARA NP; GARLAND ALLEN MD;*[facility]*
--- NOTE | 2016-09-05 10:03 | RADRPT ---
PROCEDURE: CT Chest without contrast. CLINICAL INDICATION: Lymphadenopathy TECHNIQUE: CT of the chest was performed on a multi-detector scanner without IV contrast. Coronal and sagittal images were reformatted from the axial data set. One or more of the following dose re duction techniques were used: automated exposure control, adjustment of the mA and/or kV according t o patient size, use of iterative reconstruction technique. CTDI = 10.78 mGy. DLP = 407.92 mGy-cm. COMPARISON: None FINDINGS: Left upper lobe bronchiectasis is noted. Bronchial wall thickening and central bronchial ectasia ar e seen bilaterally, compatible with chronic bronchitis. No acute infiltrate, pleural effusion, pulm onary edema or pneumothorax is identified. The central tracheobronchial tree is clear. No pulmonar y nodule or mass is identified. The heart size is normal, without significant pericardial fluid. Coronary arterial and aortic ather osclerotic calcifications are present. There is no thoracic aortic aneurysm. Left-sided dual lead cardiac pacing device is in place. There is nonspecific mild multicompartmental prominence of media stinal lymph nodes, with maximal short-axis diameter of 1.5 cm in the subcarinal region. No axillar y or supraclavicular lymphadenopathy is identified. Visualized portions of the upper abdomen demonstrate no acute abnormality. The surrounding osseous structures are remarkable for degenerative spondylosis of the spine. No osteolytic or osteoblastic lesion is detected. IMPRESSION: 1. There is nonspecific multicompartmental prominence of mediastinal lymph nodes, as described abov e, possibly reactive. Attention on follow-up is recommended. 2. No axillary or supraclavicular lymphadenopathy is identified. 3. Left upper lobe bronchiectasis and findings compatible with chronic bronchitis are noted. 4. No lung mass or focal acute infiltrate is identified. 5. Coronary arterial and aortic atherosclerotic calcifications are present. RPTAT: EE .Blair Pinzon MD, MD Date Time Electronically viewed and signed by .Blair Pinzon MD, MD on 09/05/2016 10:03 .R/
--- NOTE | 2016-09-05 10:05 | RADRPT ---
PROCEDURE: XR Chest. CLINICAL INDICATION: Dyspnea TECHNIQUE: Single frontal chest x-ray. COMPARISON: 06/17/2016 FINDINGS: No acute infiltrate, pleural effusion or pneumothorax is identified. Cardiomediastinal silhouette i s within normal limits. Aortic atherosclerotic calcifications are noted. Left-sided dual lead pace maker remains in place. The osseous structures are unremarkable. IMPRESSION: 1. No evidence of acute cardiopulmonary process. 2. Aortic atherosclerosis. RPTAT: EE .Blair Pinzon MD, MD Date Time Electronically viewed and signed by .Blair Pinzon MD, on 09/05/2016 10:04 .R/
[2016-09-05] MEDS: ASPIRIN 81 MG TAB PO SCH (10:15)
[2016-09-05] MEDS: SPIRONOLACTONE 25 MG TAB PO SCH (10:15)
[2016-09-05] MEDS: FERROUS SULFATE (EC) 325 MG TAB PO SCH (10:15)
[2016-09-05] MEDS: HYDROCHLOROTHIAZIDE 25 MG TAB PO SCH (10:17)
[2016-09-05] MEDS: ENOXAPARIN 40 MG/0.4 ML SYG SC SCH (10:41)
[2016-09-05 11:22] LABS: EOSINOPHILS # 0.2 10^3/ul (0.0-0.5); LYMPHOCYTES # 0.9 10^3/ul (0.8-2.9); MONOCYTE # 0.3 10^3/ul (0.3-0.9); NEUTROPHIL # 2.6 10^3/ul (1.6-7.5)
--- NOTE | 2016-09-05 13:02 | CONS ---
Date/Time of Note Date/Time of Note DATE: 09/05/16 TIME: 12:53 Assessment/Plan Assessment/Plan Chief Complaint/Hosp Course The patient is an 85-year-old gentleman with prior medical history positive for hypertension, diabetes mellitus diet controlled, history of sick sinus syndrome s/p pacemaker, paroxysmal atrial fibrillation, urinary retention , history of asthma, CHF, hypothyroidism, history of skin cancer on the arms, who presented with difficulty urinating. He also stated that he has a known history of BPH and follows with a urologist does not remember the name. Per Dr. Taylor, the patient does have a history of nodular prostate, and has had a prostate biopsy back in 2005 and that did not show any cancer. At that time, his PSA was elevated and the number is not available at the present. During this admission, his PSA was checked and found to be normal at 0.6. In the emergency room, patient underwent the CT scan of the abdomen and pelvis which revealed: 1. Mild mid abdominal and pelvic retroperitoneal fat stranding, symmetric to the left. There is also increased prominence of the retroperitoneum lymph nodes in this region. The findings were nonspecific, but might represent metastatic lymphadenopathy with lymphedema, possibly inflammatory process with reactive lymphadenopathy. 2. Normal appendix. 3. Moderate descending and sigmoid colon diverticulosis. 4. No obstructive uropathy or urinary stone. 5. Moderate fat containing right inguinal hernia. - CT test 09/05/[address], possible reactive and chronic bronchitis. - LDH normal which makes lymphoma less likely - PSA normal as well which makes metastatic prostate cancer less likely. Appreciate urology recommendations. - Discussed with radiology, lymph nodes are too small in both chest and abdomen to biopsy - Will obtain other tumor markers, however suspicion low for malignancy. Would recommend repeat imaging as an outpatient to see whether anything amenable to biopsy. Patient would like to follow-up with his PCP for repeat imaging and further management. Problems: Consultation Date/Type/Reason Admit Date/Time Sep 05, 2016 at 10:03 Date of Consultation: Sep 05, 2016 Type of Consultation: Hematology/Oncology Reason for Consultation Retroperitoneal lymphadenopathy Hx of Present Illness The patient is an 85-year-old gentleman with prior medical history positive for hypertension, diabetes mellitus diet controlled, history of sick sinus syndrome s/p pacemaker, paroxysmal atrial fibrillation, urinary retention , history of asthma, CHF, hypothyroidism, history of skin cancer on the arms. He also stated that he has a known history of BPH and follows with a urologist does not remember the name. The patient was in his usual health until the day prior to admission when he noticed he was not able to urinate and feel bloating and fullness in the lower abdomen. Patient associated that with his BPH symptoms and patient also stated he is compliant with his medication, takes his routine medication. In the emergency room, patient underwent the CT scan of the abdomen and pelvis which revealed: 1. Mild mid abdominal and pelvic retroperitoneal fat stranding, symmetric to the left. There is also increased prominence of the retroperitoneum lymph nodes in this region. The findings were nonspecific, but might represent metastatic lymphadenopathy with lymphedema, possibly inflammatory process with reactive lymphadenopathy. 2. Normal appendix. 3. Moderate descending and sigmoid colon diverticulosis. 4. No obstructive uropathy or urinary stone. 5. Moderate fat containing right inguinal hernia. The patient states that he feels well and wishes to go home. He states that he walked 25 rounds in the hallways. Past Medical History Per HPI Past Surgical History Status post pacemaker, status post bilateral knee surgery, status post hernia repair in 2007. Family History Significant Family History: no pertinent family hx Social History Patient lives at home with his family, patient denies any tobacco use, denies any alcohol use, denies any illicit drug use. Alcohol Use: rarely Smoking Status: Former smoker Exam/Review of Systems Vital Signs Vitals Vital Signs Date Time Temp Pulse Resp B/P Pulse Ox O2 Delivery O2 Flow Rate FiO2 09/05/16 08:17 98.0 71 18 112/52 96 09/04/16 03:56 Room Air Intake and Output 09/04/16 09/04/16 09/05/16 15:00 23:00 07:00 Intake Total 3020 ml 1426 ml Output Total 2900 ml 2500 ml Balance 120 ml -1074 ml Exam Constitutional: alert, oriented Psych: no complaints Neck: supple Respiratory: clear to auscultation Cardiovascular: regular rate and rhythm Gastrointestinal: non-tender, soft Musculoskeletal: nl extremities to inspection Results Result Diagram: 09/05/1642109/05/16421 Results 24 hrs Laboratory Tests Test 09/04/16 14:50 09/05/16 04:22 Prostate Specific Antigen 0.6 White Blood Count 4.3 L Red Blood Count 3.27 L Hemoglobin 10.2 L Hematocrit 30.9 L Mean Corpuscular Volume 94.5 Mean Corpuscular Hemoglobin 31.2 Mean Corpuscular Hemoglobin Concent 33.0 Red Cell Distribution Width 13.3 Platelet Count 195 Mean Platelet Volume 9.0 Neutrophils % 61.0 Band Neutrophils % 8.0 H Lymphocytes % 20.0 Monocytes % 7.0 Eosinophils % 4.0 Neutrophils # 2.6 Lymphocytes # 0.9 Monocytes # 0.3 Eosinophils # 0.2 Sodium Level 138 Potassium Level 4.5 Chloride Level 105 Carbon Dioxide Level 26 Anion Gap 12 Blood Urea Nitrogen 12 # Creatinine 0.82 Glucose Level 114 Calcium Level 8.3 L Lactate Dehydrogenase 287 L B-Type Natriuretic Peptide 272 Thyroid Stimulating Hormone (TSH) 4.700 H Medications Medications Current Medications Potassium Chloride/Sodium Chloride 1,000 ml @ 60 mls/hr [id number] IV Last administered on 09/04/16 23:17; Admin Dose 60 MLS/HR; Start 09/04/16 at 05:00 Piperacillin Sod/ Tazobactam Sod (Zosyn 3.375gm/ 100 ml (Pmx)) 100 ml @ 200 mls /hr Q6 IVPB Last administered on 09/05/16 05:29; Admin Dose 200 MLS/HR; Start 09/04/16 at 06:00 Acetaminophen (Tylenol Tab) 650 mg Q4H PRN PO PAIN AND OR ELEVATED TEMP; Start 09/04/16 at 05:00 Ondansetron HCl (Zofran Inj) 4 mg Q6 PRN IV NAUSEA AND/OR VOMITING; Start 09/04 at 05:00 Enoxaparin Sodium (Lovenox) 40 mg DAILY SC Last administered on 09/05/16 10:41 ; Admin Dose 40 MG; Start 09/04/16 at 09:00 Hydralazine HCl (Apresoline) 10 mg Q4H PRN IV ELEVATED BLOOD PRESSURE; Start at 05:00 Amiodarone HCl (Cordarone) 200 mg MONWEDFRI PO Last administered on 09/04/16 17:10; Admin Dose 200 MG; Start 09/04/16 at 16:00 Aspirin (Aspirin) 81 mg DAILY PO Last administered on 09/05/16 10:15; Admin Dose 81 MG; Start 09/05/16 at 09:00 Carvedilol (Coreg) 3.125 mg BID PO Last administered on 09/05/16 10:18; Admin Dose 3.125 MG; Start 09/04/16 at 21:00 Ferrous Sulfate (Ferrous Sulfate (Ec)) 325 mg DAILY PO Last administered on 10:15; Admin Dose 325 MG; Start 09/05/16 at 09:00 Hydrochlorothiazide (Hydrochlorothiazide) 25 mg DAILY PO Last administered on 10:17; Admin Dose 25 MG; Start 09/05/16 at 09:00 Levothyroxine Sodium (Synthroid) 100 mcg DAILY@06 PO Last administered on 05:29; Admin Dose 100 MCG; Start 09/05/16 at 06:00 Montelukast Sodium (Singulair) 10 mg QHS PO Last administered on 09/04/16 21: 37; Admin Dose 10 MG; Start 09/04/16 at 21:00 Pantoprazole (Protonix Tab) 40 mg DAILY@06 PO Last administered on 09/05/16 05 :29; Admin Dose 40 MG; Start 09/05/16 at 06:00 Spironolactone (Aldactone) 25 mg DAILY PO Last administered on 09/05/16 10:15 ; Admin Dose 25 MG; Start 09/05/16 at 09:00 Terazosin HCl (Hytrin) 2 mg HS PO Last administered on 09/04/16 21:37; Admin Dose 2 MG; Start 09/04/16 at 21:00 JANET IRELAND MD Sep 05, 2016 13:02
[2016-09-05] MEDS: 1/2 NS + KCL 20 MEQ 1,000 ML IV SCH ×2 (14:20→22:28)
--- NOTE | 2016-09-05 19:30 | PN ---
Date/Time of Note Date/Time of Note DATE: 09/05/16 TIME: 19:28 Assessment/Plan VTE Prophylaxis VTE Prophylaxis Intervention: other Lines/Catheters IV [facility]ter Type (from [facility]): Peripheral IV Urinary Cath still in place: No Assessment/Plan Assessment/Plan 1. Urinary retention. Continue patient on terazosin. We will ask Dr. Taylor to see patient in urology consultation. Continue to monitor intake and output. 2. Abdominal pain of unknown etiology. Dr. Dong will be following in gastroenterology consultation. The patient's CT with lymphadenopathy will ask Dr. Toledo who is covering for Dr. Cardona to evaluate the patient in hematology/ oncology consultation. 3. Hypertension. Continue antihypertensive medication from home. 4. Permanent pacemaker. 5. Hypothyroidism. Continue Synthroid. 6. Asthma. Continue breathing treatment. 7. Congestive heart failure. Continue to monitor intake and output. Dr. Bingham will be following the patient in cardiology consultation. We will continue Lovenox for deep venous thrombosis prophylaxis and Protonix for peptic ulcer disease prophylaxis. Further recommendations based on clinical course. Plan of care discussed with Dr. Wilson. Subjective 24 Hr Interval Summary Eyes: no complaints ENT: no complaints Respiratory: no complaints Cardiovascular: no complaints Gastrointestinal: pain Genitourinary: no complaints Musculoskeletal: no complaints Skin: no complaints Neurologic: no complaints Endocrine: no complaints Lymphatic: no complaints Exam/Review of Systems Vital Signs Vitals Vital Signs Date Time Temp Pulse Resp B/P Pulse Ox O2 Delivery O2 Flow Rate FiO2 09/05/16 08:17 98.0 71 18 112/52 96 09/04/16 03:56 Room Air Intake and Output 09/04/16 09/04/16 09/05/16 15:00 23:00 07:00 Intake Total 3020 ml 1426 ml Output Total 2900 ml 2500 ml Balance 120 ml -1074 ml Exam Constitutional: alert, oriented, well developed Psych: nl mood/affect Head: atraumatic Eyes: EOMI, PERRL, nl sclera ENMT: nl external ears & nose Neck: non-tender Respiratory: clear to auscultation Cardiovascular: nl pulses Gastrointestinal: non-tender, soft Musculoskeletal: nl extremities to inspection Extremities: normal pulses Neurological: nl mental status Skin: nl turgor Lymph: nontender Results Result Diagram: 3/23/17 0422 3/23/17 0422 Results 24 hrs Laboratory Tests Test 09/05/16 04:22 White Blood Count 4.3 L Red Blood Count 3.27 L Hemoglobin 10.2 L Hematocrit 30.9 L Mean Corpuscular Volume 94.5 Mean Corpuscular Hemoglobin 31.2 Mean Corpuscular Hemoglobin Concent 33.0 Red Cell Distribution Width 13.3 Platelet Count 195 Mean Platelet Volume 9.0 Neutrophils % 61.0 Band Neutrophils % 8.0 H Lymphocytes % 20.0 Monocytes % 7.0 Eosinophils % 4.0 Neutrophils # 2.6 Lymphocytes # 0.9 Monocytes # 0.3 Eosinophils # 0.2 Sodium Level 138 Potassium Level 4.5 Chloride Level 105 Carbon Dioxide Level 26 Anion Gap 12 Blood Urea Nitrogen 12 # Creatinine 0.82 Glucose Level 114 Calcium Level 8.3 L Lactate Dehydrogenase 287 L B-Type Natriuretic Peptide 272 Thyroid Stimulating Hormone (TSH) 4.700 H Medications Medications Current Medications Potassium Chloride/Sodium Chloride 1,000 ml @ 60 mls/hr [id number] IV Last administered on 09/04/16 23:17; Admin Dose 60 MLS/HR; Start 09/04/16 at 05:00 Piperacillin Sod/ Tazobactam Sod (Zosyn 3.375gm/ 100 ml (Pmx)) 100 ml @ 200 mls /hr Q6 IVPB Last administered on 09/05/16 18:53; Admin Dose 200 MLS/HR; Start 09/04/16 at 06:00 Acetaminophen (Tylenol Tab) 650 mg Q4H PRN PO PAIN AND OR ELEVATED TEMP; Start 09/04/16 at 05:00 Ondansetron HCl (Zofran Inj) 4 mg Q6 PRN IV NAUSEA AND/OR VOMITING; Start 09/04 at 05:00 Enoxaparin Sodium (Lovenox) 40 mg DAILY SC Last administered on 09/05/16 10:41 ; Admin Dose 40 MG; Start 09/04/16 at 09:00 Hydralazine HCl (Apresoline) 10 mg Q4H PRN IV ELEVATED BLOOD PRESSURE; Start at 05:00 Amiodarone HCl (Cordarone) 200 mg MONWEDFRI PO Last administered on 09/04/16 17:10; Admin Dose 200 MG; Start 09/04/16 at 16:00 Aspirin (Aspirin) 81 mg DAILY PO Last administered on 09/05/16 10:15; Admin Dose 81 MG; Start 09/05/16 at 09:00 Carvedilol (Coreg) 3.125 mg BID PO Last administered on 09/05/16 10:18; Admin Dose 3.125 MG; Start 09/04/16 at 21:00 Ferrous Sulfate (Ferrous Sulfate (Ec)) 325 mg DAILY PO Last administered on 10:15; Admin Dose 325 MG; Start 09/05/16 at 09:00 Hydrochlorothiazide (Hydrochlorothiazide) 25 mg DAILY PO Last administered on 10:17; Admin Dose 25 MG; Start 09/05/16 at 09:00 Levothyroxine Sodium (Synthroid) 100 mcg DAILY@06 PO Last administered on 05:29; Admin Dose 100 MCG; Start 09/05/16 at 06:00 Montelukast Sodium (Singulair) 10 mg QHS PO Last administered on 09/04/16 21: 37; Admin Dose 10 MG; Start 09/04/16 at 21:00 Pantoprazole (Protonix Tab) 40 mg DAILY@06 PO Last administered on 09/05/16 05 :29; Admin Dose 40 MG; Start 09/05/16 at 06:00 Spironolactone (Aldactone) 25 mg DAILY PO Last administered on 09/05/16 10:15 ; Admin Dose 25 MG; Start 09/05/16 at 09:00 Terazosin HCl (Hytrin) 2 mg HS PO Last administered on 09/04/16 21:37; Admin Dose 2 MG; Start 09/04/16 at 21:00 MILO DENNEY Sep 05, 2016 19:30
[2016-09-05 20:30] VITALS: BP_SYST 127; BP_SYST 99; BP_DIAS 51; BP_DIAS 58; RESP 20
[2016-09-05] MEDS: TERAZOSIN 2 MG CAP PO SCH (20:35)
[2016-09-05] MEDS: MONTELUKAST 10 MG TAB PO SCH (20:35)
--- NOTE | 2016-09-05 22:22 | PN ---
DATE: 09/05/2016 SUBJECTIVE/OBJECTIVE: The patient has had a history of urinary urgency and occasional urgency incontinence. He did have also a nodular prostate, and he does have nocturia about 1 to 3 times usually, and concern was about his CT scan of the abdomen that showed mild abdominal and pelvic retroperitoneal fat stranding, more on the left, and increased prominence of the retroperitoneal lymph nodes in the region of the pelvis and retroperitoneal area and the concern whether there is any prostate problem. However, I did review the record of this patient in my office, and I have seen him since 2005. At that time, he did have a nodular prostate and an elevated PSA, and he underwent biopsy of the prostate, and that was benign. He later on underwent transurethral microwave treatment of the prostate, and that did help his voiding , and he has been voiding well since. He has been on terazosin 2 mg to help with his voiding, and his prostate has not been large, and the prostate size as measured last time was about 32 mL, which is at the upper edge of the normal, and his PSA also has been normal, and we did check his PSA here in the hospital , and his PSA came back 0.6. Back in 2010, on 11/14/2010, his PSA was 1.3. So basically I do not think this patient does have any possibility of prostate cancer, and his prostate is not large and he is voiding well. Occasionally he may have urgency or urgency incontinence, and that is not uncommon for somebody who has had transurethral microwave treatment of his prostate. Therefore, from a urological standpoint will just watch him and no need for any urological intervention. Dictated By: YOUSIF RILEY/PRISCILLA Conf#: [id number] DID#: [id number] MTDD
[2016-09-06 04:56] LABS: ADD SCAN DIFF NO
[2016-09-06] MEDS: PIPER-TAZO 3.375 GM IV (PMX) 100 ML IVPB SCH ×3 (05:03→17:42)
[2016-09-06 05:12] LABS: POTASSIUM 4.6 mmol/L (3.5-5.1)
[2016-09-06 05:14] LABS: CREATININE 0.82 mg/dl (0.61-1.24)
[2016-09-06 05:15] LABS: CALCIUM 8.6 mg/dl (8.4-10.2)
[2016-09-06 05:21] LABS: BASOPHILS % 0.3 % (0.0-2.0); EOSINOPHILS # 0.1 10^3/ul (0.0-0.5); EOSINOPHILS % 3.5 % (0.0-7.0); HEMOGLOBIN 9.6 g/dl (14.0-18.0); LYMPHOCYTES # 0.9 10^3/ul (0.8-2.9); LYMPHOCYTES % 23.2 % (15.0-51.0); MEAN CORPUSCULAR HEMOGLOBIN 31.4 pg (29.0-33.0); MEAN CORPUSCULAR HGB CONC 33.1 g/dl (32.0-37.0); MEAN CORPUSCULAR VOLUME 94.8 fl (82.0-101.0); MEAN PLATELET VOLUME 8.8 fl (7.4-10.4); MONOCYTE # 0.7 10^3/ul (0.3-0.9); NEUTROPHIL # 2.2 10^3/ul (1.6-7.5); NEUTROPHILS % 54.6 % (39.0-77.0); PLATELET COUNT 213 10^3/UL (140-415); RED BLOOD COUNT 3.06 10^6/ul (4.70-6.10); RED CELL DISTRIBUTION WIDTH 13.1 % (11.5-14.5)
[2016-09-06 05:31] LABS: MONOCYTES % 18.4 % (0.0-11.0)
[2016-09-06 05:44] LABS: CARCINOEMBRYONIC ANTIGEN 0.8 ng/ml (0.0-5.0)
[2016-09-06] MEDS: LEVOTHYROXINE 100 MCG TAB PO SCH (05:56)
[2016-09-06] MEDS: PANTOPRAZOLE (EC) 40 MG TAB PO SCH (05:56)
[2016-09-06 08:18] VITALS: BP 114/65; RESP 18
[2016-09-06] MEDS: HYDROCHLOROTHIAZIDE 25 MG TAB PO SCH (09:00)
[2016-09-06] MEDS: FERROUS SULFATE (EC) 325 MG TAB PO SCH (09:14)
[2016-09-06] MEDS: ASPIRIN 81 MG TAB PO SCH (09:14)
[2016-09-06] MEDS: SPIRONOLACTONE 25 MG TAB PO SCH (09:14)
[2016-09-06] MEDS: ENOXAPARIN 40 MG/0.4 ML SYG SC SCH (09:17)
[2016-09-06] MEDS: AMIODARONE 200 MG TAB PO SCH (09:19)
--- NOTE | 2016-09-06 10:32 | PN ---
DATE: 09/06/2016 CARDIOLOGY FOLLOWUP SUBJECTIVE: The patient says he is feeling, no abdominal pain, nausea, vomiting. He wants to go mirna e. No chest pain or pressure. MEDICATIONS: Reviewed. PHYSICAL EXAMINATION: VITAL SIGNS: Temperature 98, heart rate of 77, blood pressure 140/65, respiration rate of 18, satur ating 98%. HEENT: Normocephalic, atraumatic. Pupils equal and round. CARDIOVASCULAR: Regular rate and rhythm, systolic murmur. PULMONARY: With no wheezes, no rhonchi. GASTROINTESTINAL: Soft, nontender. EXTREMITIES: No significant edema. NEUROLOGIC: Awake and alert. PSYCHIATRIC: Calm and very pleasant. LABORATORY: WBC of 4, hemoglobin 9.6, platelets of 213. Sodium 141, potassium 4.6, BUN of 10, crea tinine 0.82, glucose 116. ASSESSMENT AND PLAN: 1. Sick sinus syndrome, history of permanent pacemaker. 2. History of paroxysmal atrial fibrillation on anticoagulation at home. 3. History of possible prostate cancer workup if being done by neurology. 4. Urinary retention has improved. 5. History of thyroid disorder. 6. History of cardiomyopathy currently has improved. 7. Hypertension, under good control. RECOMMENDATIONS: We will continue with the current cardiac care. Anticoagulation to be resumed onc e okay from urology standpoint. Discharge planning once okay from internal medicine. No further ca rdiac workup would be needed. We will follow the patient as an outpatient. Dictated By: ZAN WINSLOW MD AV/PRISCILLA Conf#: [id number] DID#: [id number] CC: GARLAND ALLEN MD;*EndCC*
--- NOTE | 2016-09-06 14:02 | CONS ---
Date/Time of Note Date/Time of Note DATE: 09/06/16 TIME: 14:01 Assessment/Plan Assessment/Plan Chief Complaint/Hosp Course The patient is an 85-year-old gentleman with prior medical history positive for hypertension, diabetes mellitus diet controlled, history of sick sinus syndrome s/p pacemaker, paroxysmal atrial fibrillation, urinary retention , history of asthma, CHF, hypothyroidism, history of skin cancer on the arms, who presented with difficulty urinating. He also stated that he has a known history of BPH and follows with a urologist does not remember the name. Per Dr. Taylor, the patient does have a history of nodular prostate, and has had a prostate biopsy back in 2005 and that did not show any cancer. At that time, his PSA was elevated and the number is not available at the present. During this admission, his PSA was checked and found to be normal at 0.6. In the emergency room, patient underwent the CT scan of the abdomen and pelvis which revealed: 1. Mild mid abdominal and pelvic retroperitoneal fat stranding, symmetric to the left. There is also increased prominence of the retroperitoneum lymph nodes in this region. The findings were nonspecific, but might represent metastatic lymphadenopathy with lymphedema, possibly inflammatory process with reactive lymphadenopathy. 2. Normal appendix. 3. Moderate descending and sigmoid colon diverticulosis. 4. No obstructive uropathy or urinary stone. 5. Moderate fat containing right inguinal hernia. - CT chest 09/05/[address], possible reactive and chronic bronchitis. - LDH normal which makes lymphoma less likely; additionally, AFP, CEA, CA 19-9 normal - PSA normal as well which makes metastatic prostate cancer less likely. Appreciate urology recommendations. - Discussed with radiology, lymph nodes are too small in both chest and abdomen to biopsy - Would recommend repeat imaging as an outpatient to see whether anything amenable to biopsy. Patient would like to follow-up with his PCP for repeat imaging and further management. Problems: Consultation Date/Type/Reason Admit Date/Time Sep 05, 2016 at 10:03 Initial Consult Date 09/05/16 Type of Consultation: Hematology/Oncology 24 HR Interval Summary Free Text/Dictation Patient doing well, urinating, ambulating, denies fevers or night sweats. Exam/Review of Systems Vital Signs Vitals Vital Signs Date Time Temp Pulse Resp B/P Pulse Ox O2 Delivery O2 Flow Rate FiO2 09/06/16 08:18 98.1 77 18 114/65 98 09/04/16 03:56 Room Air Intake and Output 09/05/16 09/05/16 09/06/16 15:00 23:00 07:00 Intake Total 2140 ml 1060 ml Output Total 1650 ml 840 ml Balance 490 ml 220 ml Exam Constitutional: alert, oriented Psych: no complaints Neck: supple Respiratory: clear to auscultation Cardiovascular: regular rate and rhythm Gastrointestinal: non-tender, soft Musculoskeletal: nl extremities to inspection Results Result Diagram: 09/06/16 0413 09/06/16 0413 Results 24 hrs Laboratory Tests Test 09/06/16 04:13 White Blood Count 4.0 L Red Blood Count 3.06 L Hemoglobin 9.6 L Hematocrit 29.0 L Mean Corpuscular Volume 94.8 Mean Corpuscular Hemoglobin 31.4 Mean Corpuscular Hemoglobin Concent 33.1 Red Cell Distribution Width 13.1 Platelet Count 213 Mean Platelet Volume 8.8 Neutrophils % 54.6 Lymphocytes % 23.2 Monocytes % 18.4 H Eosinophils % 3.5 Basophils % 0.3 Nucleated Red Blood Cells % 0.0 Neutrophils # 2.2 Lymphocytes # 0.9 Monocytes # 0.7 Eosinophils # 0.1 Basophils # 0.0 Nucleated Red Blood Cells # 0.0 Sodium Level 141 Potassium Level 4.6 Chloride Level 108 Carbon Dioxide Level 26 Anion Gap 12 Blood Urea Nitrogen 10 Creatinine 0.82 Glucose Level 116 Calcium Level 8.6 Alpha Fetoprotein 1.15 Carcinoembryonic Antigen 0.8 CA 19-9 Antigen 3.0 Medications Medications Current Medications Potassium Chloride/Sodium Chloride 1,000 ml @ 60 mls/hr [id number] IV Last administered on 09/05/16 22:28; Admin Dose 60 MLS/HR; Start 09/04/16 at 05:00 Piperacillin Sod/ Tazobactam Sod (Zosyn 3.375gm/ 100 ml (Pmx)) 100 ml @ 200 mls /hr Q6 IVPB Last administered on 09/06/16 12:15; Admin Dose 200 MLS/HR; Start 09/04/16 at 06:00 Acetaminophen (Tylenol Tab) 650 mg Q4H PRN PO PAIN AND OR ELEVATED TEMP; Start 09/04/16 at 05:00 Ondansetron HCl (Zofran Inj) 4 mg Q6 PRN IV NAUSEA AND/OR VOMITING; Start 09/04 at 05:00 Enoxaparin Sodium (Lovenox) 40 mg DAILY SC Last administered on 09/06/16 09:17 ; Admin Dose 40 MG; Start 09/04/16 at 09:00 Hydralazine HCl (Apresoline) 10 mg Q4H PRN IV ELEVATED BLOOD PRESSURE; Start at 05:00 Amiodarone HCl (Cordarone) 200 mg MONWEDFRI PO Last administered on 09/06/16 09:19; Admin Dose 200 MG; Start 09/04/16 at 16:00 Aspirin (Aspirin) 81 mg DAILY PO Last administered on 09/06/16 09:14; Admin Dose 81 MG; Start 09/05/16 at 09:00 Carvedilol (Coreg) 3.125 mg BID PO Last administered on 09/06/16 09:15; Admin Dose 3.125 MG; Start 09/04/16 at 21:00 Ferrous Sulfate (Ferrous Sulfate (Ec)) 325 mg DAILY PO Last administered on 09:14; Admin Dose 325 MG; Start 09/05/16 at 09:00 Hydrochlorothiazide (Hydrochlorothiazide) 25 mg DAILY PO Last administered on 10:17; Admin Dose 25 MG; Start 09/05/16 at 09:00 Levothyroxine Sodium (Synthroid) 100 mcg DAILY@06 PO Last administered on 05:56; Admin Dose 100 MCG; Start 09/05/16 at 06:00 Montelukast Sodium (Singulair) 10 mg QHS PO Last administered on 09/05/16 20: 35; Admin Dose 10 MG; Start 09/04/16 at 21:00 Pantoprazole (Protonix Tab) 40 mg DAILY@06 PO Last administered on 09/06/16 05 :56; Admin Dose 40 MG; Start 09/05/16 at 06:00 Spironolactone (Aldactone) 25 mg DAILY PO Last administered on 09/06/16 09:14 ; Admin Dose 25 MG; Start 09/05/16 at 09:00 Terazosin HCl (Hytrin) 2 mg HS PO Last administered on 09/05/16 20:35; Admin Dose 2 MG; Start 09/04/16 at 21:00 TOJANET MD Sep 06, 2016 14:02
[2016-09-06] MEDS: 1/2 NS + KCL 20 MEQ 1,000 ML IV SCH (15:48)
--- NOTE | 2016-09-06 16:53 | PN ---
Date/Time of Note Date/Time of Note DATE: 09/06/16 TIME: 16:51 Assessment/Plan VTE Prophylaxis VTE Prophylaxis Intervention: SCD's Lines/Catheters IV [facility] Type [facility] Peripheral IV Urinary Cath still in place: No Assessment/Plan Chief Complaint/Hosp Course ASSESSMENT AND PLAN: 1. Urinary retention. Continue patient on terazosin. Dr. Taylor urology consultation is appreciated. continue to monitor intake and output. 2. Abdominal pain of unknown etiology. Dr. Dong is following in gastroenterology consultation. The patient's CT with lymphadenopathy will ask Dr. Toledo is following in hematology/oncology consultation. 3. Hypertension. Continue antihypertensive medication from home. 4. Permanent pacemaker. 5. Hypothyroidism. Continue Synthroid. 6. Asthma. Continue breathing treatment. 7. Congestive heart failure. Continue to monitor intake and output. Dr. Bingham will be following the patient in cardiology consultation. Continue Lovenox for deep venous thrombosis prophylaxis and Protonix for peptic ulcer disease prophylaxis. Further recommendations based on clinical course. Plan of care discussed with Dr. Wilson. Problems: Subjective 24 Hr Interval Summary Free Text/Dictation Patient tolerates a clear liquid diet well, denies nausea vomiting, remains afebrile. Patient awaits gastroenterology consultation. Exam/Review of Systems Vital Signs Vitals Vital Signs Date Time Temp Pulse Resp B/P Pulse Ox O2 Delivery O2 Flow Rate FiO2 09/06/16 08:18 98.1 77 18 114/65 98 09/04/16 03:56 Room Air Intake and Output 09/05/16 09/05/16 09/06/16 15:00 23:00 07:00 Intake Total 2140 ml 1060 ml Output Total 1650 ml 840 ml Balance 490 ml 220 ml Exam PHYSICAL ASSESSMENT: GENERAL: Well-developed, well-nourished male in no acute distress, alert and oriented x4. HEENT: Head is atraumatic, normocephalic. Pupils equal, round, reactive to light and accommodation. Oral mucosa is pink and moist. NECK: Supple, no cervical lymphadenopathy, no thyromegaly. CHEST: Lungs clear bilaterally. There is no rhonchi, wheezes, rales noted. CARDIOVASCULAR: Normal S1, S2. No murmurs, gallops, clicks, rubs noted. Patient has a permanent pacemaker left chest. ABDOMEN: Round, soft, nondistended, nontender. Bowel sounds present. EXTREMITIES: No edema, clubbing, cyanosis. Pulses equal bilaterally 2+. SKIN: There is no rash or petechiae noted. NEUROLOGICAL: The patient is awake, alert and oriented x4. Results Result Diagram: 09/06/16 0413 09/06/16 0413 Results 24 hrs Laboratory Tests Test 09/06/16 04:13 White Blood Count 4.0 L Red Blood Count 3.06 L Hemoglobin 9.6 L Hematocrit 29.0 L Mean Corpuscular Volume 94.8 Mean Corpuscular Hemoglobin 31.4 Mean Corpuscular Hemoglobin Concent 33.1 Red Cell Distribution Width 13.1 Platelet Count 213 Mean Platelet Volume 8.8 Neutrophils % 54.6 Lymphocytes % 23.2 Monocytes % 18.4 H Eosinophils % 3.5 Basophils % 0.3 Nucleated Red Blood Cells % 0.0 Neutrophils # 2.2 Lymphocytes # 0.9 Monocytes # 0.7 Eosinophils # 0.1 Basophils # 0.0 Nucleated Red Blood Cells # 0.0 Sodium Level 141 Potassium Level 4.6 Chloride Level 108 Carbon Dioxide Level 26 Anion Gap 12 Blood Urea Nitrogen 10 Creatinine 0.82 Glucose Level 116 Calcium Level 8.6 Alpha Fetoprotein 1.15 Carcinoembryonic Antigen 0.8 CA 19-9 Antigen 3.0 Medications Medications Current Medications Potassium Chloride/Sodium Chloride 1,000 ml @ 60 mls/hr [id number] IV Last administered on 09/06/16 15:48; Admin Dose 60 MLS/HR; Start 09/04/16 at 05:00 Piperacillin Sod/ Tazobactam Sod (Zosyn 3.375gm/ 100 ml (Pmx)) 100 ml @ 200 mls /hr Q6 IVPB Last administered on 09/06/16 12:15; Admin Dose 200 MLS/HR; Start 09/04/16 at 06:00 Acetaminophen (Tylenol Tab) 650 mg Q4H PRN PO PAIN AND OR ELEVATED TEMP; Start 09/04/16 at 05:00 Ondansetron HCl (Zofran Inj) 4 mg Q6 PRN IV NAUSEA AND/OR VOMITING; Start 09/04 at 05:00 Enoxaparin Sodium (Lovenox) 40 mg DAILY SC Last administered on 09/06/16 09:17 ; Admin Dose 40 MG; Start 09/04/16 at 09:00 Hydralazine HCl (Apresoline) 10 mg Q4H PRN IV ELEVATED BLOOD PRESSURE; Start at 05:00 Amiodarone HCl (Cordarone) 200 mg MONWEDFRI PO Last administered on 09/06/16 09:19; Admin Dose 200 MG; Start 09/04/16 at 16:00 Aspirin (Aspirin) 81 mg DAILY PO Last administered on 09/06/16 09:14; Admin Dose 81 MG; Start 09/05/16 at 09:00 Carvedilol (Coreg) 3.125 mg BID PO Last administered on 09/06/16 09:15; Admin Dose 3.125 MG; Start 09/04/16 at 21:00 Ferrous Sulfate (Ferrous Sulfate (Ec)) 325 mg DAILY PO Last administered on 09:14; Admin Dose 325 MG; Start 09/05/16 at 09:00 Hydrochlorothiazide (Hydrochlorothiazide) 25 mg DAILY PO Last administered on 10:17; Admin Dose 25 MG; Start 09/05/16 at 09:00 Levothyroxine Sodium (Synthroid) 100 mcg DAILY@06 PO Last administered on 05:56; Admin Dose 100 MCG; Start 09/05/16 at 06:00 Montelukast Sodium (Singulair) 10 mg QHS PO Last administered on 09/05/16 20: 35; Admin Dose 10 MG; Start 09/04/16 at 21:00 Pantoprazole (Protonix Tab) 40 mg DAILY@06 PO Last administered on 09/06/16 05 :56; Admin Dose 40 MG; Start 09/05/16 at 06:00 Spironolactone (Aldactone) 25 mg DAILY PO Last administered on 09/06/16 09:14 ; Admin Dose 25 MG; Start 09/05/16 at 09:00 Terazosin HCl (Hytrin) 2 mg HS PO Last administered on 09/05/16 20:35; Admin Dose 2 MG; Start 09/04/16 at 21:00 LEE LARA Sep 06, 2016 16:53
[2016-09-06] MEDS: MONTELUKAST 10 MG TAB PO SCH (20:29)
[2016-09-06] MEDS: TERAZOSIN 2 MG CAP PO SCH (20:30)
[2016-09-06 20:47] VITALS: BP 114/56; RESP 18
--- NOTE | 2016-09-06 21:16 | CONS ---
DATE OF ADMISSION: 09/05/2016 DATE OF CONSULTATION: TYPE OF CONSULTATION: Gastroenterology. Dear Dr. Wilson, Thank you for asking me to see Mr. Muhammad in GI consultation. HISTORY OF PRESENT ILLNESS: As you know, the patient is an 85-year-old male who is admitte d to the hospital because of history of abdominal pain, which he had for 3 days prior to the admissi on. CAT scan of the abdomen shows evidence of a possible metastatic disease in the form of lymphade nopathy. The patient at this time, because of the pain medication given to him, the pain has been significant ly relieved. He is also seen by a urologist from the urological standpoint, and no active urological problem at t his time. He has multiple other medical problems which include diabetes, hypertension, history of p acemaker, history of asthma, history of skin cancer on the arms. He also has history of prostatic hypertrophy. MEDICATIONS PRIOR TO THE ADMISSION INCLUDE: 1. Ibuprofen 2. Zithromax. 3. Albuterol. 4. Prednisone. 5. Aldactone. 6. Aspirin. 7. Montelukast. 8. Benicar. 9. Protonix. 10. Amiodarone. 11. Terazosin. 12. Atorvastatin. 13. Ferrous sulfate. 14. Coreg. 15. Colace. 16. Lovaza. 17. Vascepa. 18. Eliquis. 19. Levothyroxine. 20. Albuterol. SOCIAL HISTORY: The patient does not smoke or drink. PHYSICAL EXAMINATION: GENERAL: The patient is an 85-year-old male who at this time is alert, well built. VITAL SIGNS: Afebrile. CARDIOVASCULAR: Normal heart sounds. RESPIRATORY: Normal breath sounds. ABDOMEN: Showed unremarkable findings. LABORATORY WORKUP: Hemoglobin was 11.0 on 09/03/2016 and is down to 9.6, WBC is 4000. Potassium 4. 6, calcium is 8.6, alkaline phosphatase and total protein 1.15. CEA is 0.8, CA 19-9 is 3.0. TSH is 4.7. CLINICAL IMPRESSION: 1. The patient has abdominal pain, possible metastatic disease in the abdomen. 2. He has borderline anemia. 3. It is quite possible that he could have GI malignancy of the upper gastrointestinal tract; colon ic neoplasm needs to be ruled out. 4. History of diabetes. 5. Hypertension. 6. Pacemaker insertion. 7. Benign prostatic hypertrophy. PLAN: At this time, I would recommend upper endoscopy as well as lower endoscopy. Once again, doctor, thank you for this consultation. Dictated By: SHELLEY LINARES MD NC/NTS Conf#: [id number] DID#: [id number] CC: GARLAND WILSON MD;*EndCC*
[2016-09-07] MEDS: PIPER-TAZO 3.375 GM IV (PMX) 100 ML IVPB SCH ×5 (00:02→23:46)
[2016-09-07 05:55] LABS: ADD SCAN DIFF NO
[2016-09-07] MEDS: LEVOTHYROXINE 100 MCG TAB PO SCH (06:06)
[2016-09-07] MEDS: PANTOPRAZOLE (EC) 40 MG TAB PO SCH (06:06)
[2016-09-07 06:07] LABS: BASOPHILS % 0.3 % (0.0-2.0); EOSINOPHILS # 0.2 10^3/ul (0.0-0.5); EOSINOPHILS % 3.8 % (0.0-7.0); HEMATOCRIT 27.8 % (42.0-52.0); HEMOGLOBIN 9.1 g/dl (14.0-18.0); LYMPHOCYTES % 26.1 % (15.0-51.0); MEAN CORPUSCULAR HEMOGLOBIN 31.2 pg (29.0-33.0); MEAN CORPUSCULAR HGB CONC 32.7 g/dl (32.0-37.0); MEAN CORPUSCULAR VOLUME 95.2 fl (82.0-101.0); MEAN PLATELET VOLUME 8.7 fl (7.4-10.4); MONOCYTE # 0.7 10^3/ul (0.3-0.9); MONOCYTES % 16.8 % (0.0-11.0); NEUTROPHIL # 2.1 10^3/ul (1.6-7.5); PLATELET COUNT 250 10^3/UL (140-415); RED BLOOD COUNT 2.92 10^6/ul (4.70-6.10); RED CELL DISTRIBUTION WIDTH 13.1 % (11.5-14.5); WHITE BLOOD COUNT 3.9 10^3/ul (4.8-10.8)
[2016-09-07 06:36] LABS: POTASSIUM 4.5 mmol/L (3.5-5.1)
[2016-09-07 06:38] LABS: CREATININE 0.94 mg/dl (0.61-1.24)
[2016-09-07 06:39] LABS: CALCIUM 8.2 mg/dl (8.4-10.2)
[2016-09-07 08:09] VITALS: BP 112/61; RESP 18
[2016-09-07] MEDS: FERROUS SULFATE (EC) 325 MG TAB PO SCH (08:36)
[2016-09-07] MEDS: ASPIRIN 81 MG TAB PO SCH (08:36)
[2016-09-07] MEDS: SPIRONOLACTONE 25 MG TAB PO SCH (08:38)
[2016-09-07] MEDS: HYDROCHLOROTHIAZIDE 25 MG TAB PO SCH (08:38)
[2016-09-07] MEDS: ENOXAPARIN 40 MG/0.4 ML SYG SC SCH (08:45)
--- NOTE | 2016-09-07 11:48 | PN ---
Date/Time of Note Date/Time of Note DATE: 09/07/16 TIME: 11:46 Assessment/Plan VTE Prophylaxis VTE Prophylaxis Intervention: ambulation Lines/Catheters IV [facility] Peripheral IV Urinary Cath still in place: No Assessment/Plan Assessment/Plan 85-year-old with history of sick sinus syndrome s/p pacemaker, paroxysmal atrial fibrillation, urinary retention, history of asthma, CHF, hypothyroidism, history of skin cancer on the arms, who presented with difficulty urinating. He also stated that he has a known history of BPH and follows with a urologist does not remember the name. Per Dr. Taylor, the patient does have a history of nodular prostate, and has had a prostate biopsy back in 2005 and that did not show any cancer. At that time, his PSA was elevated and the number is not available at the present. During this admission , his PSA was checked and found to be normal at 0.6. In the emergency room, patient underwent the CT scan of the abdomen and pelvis which revealed: 1. Mild mid abdominal and pelvic retroperitoneal fat stranding, symmetric to the left. There is also increased prominence of the retroperitoneum lymph nodes in this region. The findings were nonspecific, but might represent metastatic lymphadenopathy with lymphedema, possibly inflammatory process with reactive lymphadenopathy. - CT chest 09/05/[address], possible reactive and chronic bronchitis. - LDH normal which makes lymphoma less likely; additionally, AFP, CEA, CA 19-9 normal - PSA normal as well which makes metastatic prostate cancer less likely. Appreciate urology recommendations. - Discussed with radiology, lymph nodes are too small in both chest and abdomen to biopsy - Would recommend repeat imaging as an outpatient to see whether anything amenable to biopsy. Patient will follow-up with his PCP for repeat imaging and further management. Subjective 24 Hr Interval Summary Constitutional: no complaints Respiratory: no complaints Exam/Review of Systems Vital Signs Vitals Vital Signs Date Time Temp Pulse Resp B/P Pulse Ox O2 Delivery O2 Flow Rate FiO2 09/07/16 08:09 98.4 65 18 112/61 95 09/04/16 03:56 Room Air Intake and Output 09/06/16 09/06/16 09/07/16 15:00 23:00 07:00 Intake Total 100 ml 1795 ml 700 ml Output Total 1200 ml Balance 100 ml 595 ml 700 ml Exam Constitutional: alert, oriented Psych: nl mood/affect Eyes: nl conjunctiva Respiratory: normal air movement Gastrointestinal: soft Results Result Diagram: 09/07/16 0443 09/07/16 0445 Results 24 hrs Laboratory Tests Test 09/07/16 04:43 09/07/16 04:45 White Blood Count 3.9 L Red Blood Count 2.92 L Hemoglobin 9.1 L Hematocrit 27.8 L Mean Corpuscular Volume 95.2 Mean Corpuscular Hemoglobin 31.2 Mean Corpuscular Hemoglobin Concent 32.7 Red Cell Distribution Width 13.1 Platelet Count 250 Mean Platelet Volume 8.7 Neutrophils % 53.0 Lymphocytes % 26.1 Monocytes % 16.8 H Eosinophils % 3.8 Basophils % 0.3 Nucleated Red Blood Cells % 0.0 Neutrophils # 2.1 Lymphocytes # 1.0 Monocytes # 0.7 Eosinophils # 0.2 Basophils # 0.0 Nucleated Red Blood Cells # 0.0 Sodium Level 141 Potassium Level 4.5 Chloride Level 110 Carbon Dioxide Level 24 Anion Gap 12 Blood Urea Nitrogen 10 Creatinine 0.94 Glucose Level 140 Calcium Level 8.2 L Medications Medications Current Medications Potassium Chloride/Sodium Chloride 1,000 ml @ 60 mls/hr [id number] IV Last administered on 09/06/16 15:48; Admin Dose 60 MLS/HR; Start 09/04/16 at 05:00 Piperacillin Sod/ Tazobactam Sod (Zosyn 3.375gm/ 100 ml (Pmx)) 100 ml @ 200 mls /hr Q6 IVPB Last administered on 09/07/16 06:07; Admin Dose 200 MLS/HR; Start 09/04/16 at 06:00 Acetaminophen (Tylenol Tab) 650 mg Q4H PRN PO PAIN AND OR ELEVATED TEMP; Start 09/04/16 at 05:00 Ondansetron HCl (Zofran Inj) 4 mg Q6 PRN IV NAUSEA AND/OR VOMITING; Start 09/04 at 05:00 Enoxaparin Sodium (Lovenox) 40 mg DAILY SC Last administered on 09/07/16 08:45 ; Admin Dose 40 MG; Start 09/04/16 at 09:00 Hydralazine HCl (Apresoline) 10 mg Q4H PRN IV ELEVATED BLOOD PRESSURE; Start at 05:00 Amiodarone HCl (Cordarone) 200 mg MONWEDFRI PO Last administered on 09/06/16 09:19; Admin Dose 200 MG; Start 09/04/16 at 16:00 Aspirin (Aspirin) 81 mg DAILY PO Last administered on 09/07/16 08:36; Admin Dose 81 MG; Start 09/05/16 at 09:00 Carvedilol (Coreg) 3.125 mg BID PO Last administered on 09/07/16 08:39; Admin Dose 3.125 MG; Start 09/04/16 at 21:00 Ferrous Sulfate (Ferrous Sulfate (Ec)) 325 mg DAILY PO Last administered on 08:36; Admin Dose 325 MG; Start 09/05/16 at 09:00 Hydrochlorothiazide (Hydrochlorothiazide) 25 mg DAILY PO Last administered on 08:38; Admin Dose 25 MG; Start 09/05/16 at 09:00 Levothyroxine Sodium (Synthroid) 100 mcg DAILY@06 PO Last administered on 06:06; Admin Dose 100 MCG; Start 09/05/16 at 06:00 Montelukast Sodium (Singulair) 10 mg QHS PO Last administered on 09/06/16 20: 29; Admin Dose 10 MG; Start 09/04/16 at 21:00 Pantoprazole (Protonix Tab) 40 mg DAILY@06 PO Last administered on 09/07/16 06 :06; Admin Dose 40 MG; Start 09/05/16 at 06:00 Spironolactone (Aldactone) 25 mg DAILY PO Last administered on 09/07/16 08:38 ; Admin Dose 25 MG; Start 09/05/16 at 09:00 Terazosin HCl (Hytrin) 2 mg HS PO Last administered on 09/06/16 20:30; Admin Dose 2 MG; Start 09/04/16 at 21:00 ROBBY MA MD Sep 07, 2016 11:48
[2016-09-07] MEDS: 1/2 NS + KCL 20 MEQ 1,000 ML IV SCH (12:51)
--- NOTE | 2016-09-07 13:31 | PN ---
Date/Time of Note Date/Time of Note DATE: 09/07/16 TIME: 13:28 Assessment/Plan VTE Prophylaxis VTE Prophylaxis Intervention: LMWH Lines/Catheters [facility] Type (from [facility]): Peripheral IV Urinary Cath still in place: No Assessment/Plan Assessment/Plan 1. Urinary retention. Continue patient on terazosin. Dr. Taylor urology consultation is appreciated. continue to monitor intake and output. 2. Abdominal pain of unknown etiology. Dr. Dong is following in gastroenterology consultation. The patient's CT with lymphadenopathy will ask Dr. Toledo is following in hematology/oncology consultation. 3. Hypertension. Continue antihypertensive medication from home. 4. Permanent pacemaker. 5. Hypothyroidism. Continue Synthroid. 6. Asthma. Continue breathing treatment. 7. Congestive heart failure. Continue to monitor intake and output. Dr. Bingham will be following the patient in cardiology consultation. 8. Lovenox for deep venous thrombosis prophylaxis 9. Protonix for peptic ulcer disease prophylaxis. Further recommendations based on clinical course. Plan of care discussed with Dr. Wilson. Subjective 24 Hr Interval Summary Eyes: no complaints ENT: no complaints Respiratory: no complaints Cardiovascular: no complaints Gastrointestinal: no complaints Genitourinary: no complaints Musculoskeletal: no complaints Skin: no complaints Neurologic: no complaints Psychological: no complaints Exam/Review of Systems Vital Signs Vitals Vital Signs Date Time Temp Pulse Resp B/P Pulse Ox O2 Delivery O2 Flow Rate FiO2 09/07/16 08:09 98.4 65 18 112/61 95 09/04/16 03:56 Room Air Intake and Output 09/06/16 09/06/16 09/07/16 15:00 23:00 07:00 Intake Total 100 ml 1795 ml 700 ml Output Total 1200 ml Balance 100 ml 595 ml 700 ml Exam Constitutional: alert, well developed Head: atraumatic Eyes: EOMI ENMT: nl external ears & nose Respiratory: clear to auscultation Cardiovascular: nl pulses Gastrointestinal: non-tender, soft Musculoskeletal: nl extremities to inspection Extremities: normal pulses Skin: nl turgor Lymph: nontender Results Result Diagram: 09/07/16 0443 09/07/16 0445 Results 24 hrs Laboratory Tests Test 09/07/16 04:43 09/07/16 04:45 White Blood Count 3.9 L Red Blood Count 2.92 L Hemoglobin 9.1 L Hematocrit 27.8 L Mean Corpuscular Volume 95.2 Mean Corpuscular Hemoglobin 31.2 Mean Corpuscular Hemoglobin Concent 32.7 Red Cell Distribution Width 13.1 Platelet Count 250 Mean Platelet Volume 8.7 Neutrophils % 53.0 Lymphocytes % 26.1 Monocytes % 16.8 H Eosinophils % 3.8 Basophils % 0.3 Nucleated Red Blood Cells % 0.0 Neutrophils # 2.1 Lymphocytes # 1.0 Monocytes # 0.7 Eosinophils # 0.2 Basophils # 0.0 Nucleated Red Blood Cells # 0.0 Sodium Level 141 Potassium Level 4.5 Chloride Level 110 Carbon Dioxide Level 24 Anion Gap 12 Blood Urea Nitrogen 10 Creatinine 0.94 Glucose Level 140 Calcium Level 8.2 L Medications Medications Current Medications Potassium Chloride/Sodium Chloride 1,000 ml @ 60 mls/hr [id number] IV Last administered on 09/07/16 12:51; Admin Dose 60 MLS/HR; Start 09/04/16 at 05:00 Piperacillin Sod/ Tazobactam Sod (Zosyn 3.375gm/ 100 ml (Pmx)) 100 ml @ 200 mls /hr Q6 IVPB Last administered on 09/07/16 12:51; Admin Dose 200 MLS/HR; Start 09/04/16 at 06:00 Acetaminophen (Tylenol Tab) 650 mg Q4H PRN PO PAIN AND OR ELEVATED TEMP; Start 09/04/16 at 05:00 Ondansetron HCl (Zofran Inj) 4 mg Q6 PRN IV NAUSEA AND/OR VOMITING; Start 09/04 at 05:00 Enoxaparin Sodium (Lovenox) 40 mg DAILY SC Last administered on 09/07/16 08:45 ; Admin Dose 40 MG; Start 09/04/16 at 09:00 Hydralazine HCl (Apresoline) 10 mg Q4H PRN IV ELEVATED BLOOD PRESSURE; Start at 05:00 Amiodarone HCl (Cordarone) 200 mg MONWEDFRI PO Last administered on 09/06/16 09:19; Admin Dose 200 MG; Start 09/04/16 at 16:00 Aspirin (Aspirin) 81 mg DAILY PO Last administered on 09/07/16 08:36; Admin Dose 81 MG; Start 09/05/16 at 09:00 Carvedilol (Coreg) 3.125 mg BID PO Last administered on 09/07/16 08:39; Admin Dose 3.125 MG; Start 09/04/16 at 21:00 Ferrous Sulfate (Ferrous Sulfate (Ec)) 325 mg DAILY PO Last administered on 08:36; Admin Dose 325 MG; Start 09/05/16 at 09:00 Hydrochlorothiazide (Hydrochlorothiazide) 25 mg DAILY PO Last administered on 08:38; Admin Dose 25 MG; Start 09/05/16 at 09:00 Levothyroxine Sodium (Synthroid) 100 mcg DAILY@06 PO Last administered on 06:06; Admin Dose 100 MCG; Start 09/05/16 at 06:00 Montelukast Sodium (Singulair) 10 mg QHS PO Last administered on 09/06/16 20: 29; Admin Dose 10 MG; Start 09/04/16 at 21:00 Pantoprazole (Protonix Tab) 40 mg DAILY@06 PO Last administered on 09/07/16 06 :06; Admin Dose 40 MG; Start 09/05/16 at 06:00 Spironolactone (Aldactone) 25 mg DAILY PO Last administered on 09/07/16 08:38 ; Admin Dose 25 MG; Start 09/05/16 at 09:00 Terazosin HCl (Hytrin) 2 mg HS PO Last administered on 09/06/16 20:30; Admin Dose 2 MG; Start 09/04/16 at 21:00 MILO DENNEY Sep 07, 2016 13:30
[2016-09-07 19:23] VITALS: BP 136/61; RESP 18
[2016-09-07] MEDS: TERAZOSIN 2 MG CAP PO SCH (20:26)
[2016-09-07] MEDS: MONTELUKAST 10 MG TAB PO SCH (20:26)
[2016-09-08 05:01] LABS: ADD SCAN DIFF NO
[2016-09-08 05:10] LABS: BASOPHILS % 0.5 % (0.0-2.0); EOSINOPHILS # 0.2 10^3/ul (0.0-0.5); EOSINOPHILS % 3.7 % (0.0-7.0); HEMATOCRIT 26.8 % (42.0-52.0); HEMOGLOBIN 8.8 g/dl (14.0-18.0); LYMPHOCYTES # 1.2 10^3/ul (0.8-2.9); LYMPHOCYTES % 20.9 % (15.0-51.0); MEAN CORPUSCULAR HEMOGLOBIN 31.3 pg (29.0-33.0); MEAN CORPUSCULAR HGB CONC 32.8 g/dl (32.0-37.0); MEAN CORPUSCULAR VOLUME 95.4 fl (82.0-101.0); MEAN PLATELET VOLUME 8.5 fl (7.4-10.4); MONOCYTE # 0.9 10^3/ul (0.3-0.9); MONOCYTES % 14.6 % (0.0-11.0); NEUTROPHIL # 3.6 10^3/ul (1.6-7.5); NEUTROPHILS % 60.1 % (39.0-77.0); PLATELET COUNT 270 10^3/UL (140-415); RED BLOOD COUNT 2.81 10^6/ul (4.70-6.10); WHITE BLOOD COUNT 5.9 10^3/ul (4.8-10.8)
[2016-09-08 05:19] LABS: POTASSIUM 3.9 mmol/L (3.5-5.1)
[2016-09-08 05:21] LABS: CREATININE 0.92 mg/dl (0.61-1.24)
[2016-09-08] MEDS: LEVOTHYROXINE 100 MCG TAB PO SCH (06:36)
[2016-09-08] MEDS: 1/2 NS + KCL 20 MEQ 1,000 ML IV SCH ×2 (06:36→09:06)
[2016-09-08] MEDS: PANTOPRAZOLE (EC) 40 MG TAB PO SCH (06:36)
[2016-09-08] MEDS: PIPER-TAZO 3.375 GM IV (PMX) 100 ML IVPB SCH ×3 (06:36→18:10)
[2016-09-08 07:38] VITALS: BP 114/57; RESP 16
[2016-09-08] MEDS: HYDROCHLOROTHIAZIDE 25 MG TAB PO SCH (09:04)
[2016-09-08] MEDS: SPIRONOLACTONE 25 MG TAB PO SCH (09:04)
[2016-09-08] MEDS: FERROUS SULFATE (EC) 325 MG TAB PO SCH (09:04)
[2016-09-08] MEDS: ASPIRIN 81 MG TAB PO SCH (09:04)
[2016-09-08] MEDS: ENOXAPARIN 40 MG/0.4 ML SYG SC SCH (09:08)
--- NOTE | 2016-09-08 14:53 | PN ---
Date/Time of Note Date/Time of Note DATE: 09/08/16 TIME: 14:52 Assessment/Plan VTE Prophylaxis VTE Prophylaxis Intervention: other Lines/Catheters IV C[facility]ter Type (from [facility]): Peripheral IV Urinary Cath still in place: No Assessment/Plan Assessment/Plan 1. Urinary retention. Continue patient on terazosin. Dr. Taylor urology consultation is appreciated. continue to monitor intake and output. 2. Abdominal pain of unknown etiology. -per Dr. Dong in gastroenterology consultation. -per Dr. Toledo is following in hematology/oncology consultation. 3. Hypertension. Continue antihypertensive medication from home. 4. Permanent pacemaker. 5. Hypothyroidism. Continue Synthroid. 6. Asthma. Continue breathing treatment. 7. Congestive heart failure. Continue to monitor intake and output. Dr. Bingham will be following the patient in cardiology consultation. 8. Lovenox for deep venous thrombosis prophylaxis 9. Protonix for peptic ulcer disease prophylaxis. Further recommendations based on clinical course. Plan of care discussed with Dr. Wilson. Subjective 24 Hr Interval Summary Free Text/Dictation NAD, walking in the hallway, no abdominal pain at present. Plan for possible colonoscopy per staff. dw staff. Constitutional: improved Eyes: no complaints ENT: no complaints Respiratory: no complaints Cardiovascular: no complaints Gastrointestinal: no complaints Genitourinary: no complaints Musculoskeletal: no complaints Skin: no complaints Neurologic: no complaints Endocrine: no complaints Exam/Review of Systems Vital Signs Vitals Vital Signs Date Time Temp Pulse Resp B/P Pulse Ox O2 Delivery O2 Flow Rate FiO2 09/08/16 07:38 98.2 71 16 114/57 98 Intake and Output 09/07/16 09/07/16 09/08/16 15:00 23:00 07:00 Intake Total 900 ml 1670 ml 1160 ml Output Total 800 ml Balance 100 ml 1670 ml 1160 ml Exam Constitutional: alert, oriented, well developed Psych: nl mood/affect Eyes: EOMI ENMT: nl external ears & nose Neck: non-tender Respiratory: clear to auscultation Cardiovascular: nl pulses Gastrointestinal: non-tender, soft Musculoskeletal: nl extremities to inspection Neurological: nl mental status, nl speech Skin: nl turgor Lymph: nl lymph nodes Results Result Diagram: 09/08/161 09/08/16 0441 Results 24 hrs Laboratory Tests Test 09/08/16 04:41 White Blood Count 5.9 # Red Blood Count 2.81 L Hemoglobin 8.8 L Hematocrit 26.8 L Mean Corpuscular Volume 95.4 Mean Corpuscular Hemoglobin 31.3 Mean Corpuscular Hemoglobin Concent 32.8 Red Cell Distribution Width 13.0 Platelet Count 270 Mean Platelet Volume 8.5 Neutrophils % 60.1 Lymphocytes % 20.9 Monocytes % 14.6 H Eosinophils % 3.7 Basophils % 0.5 Nucleated Red Blood Cells % 0.0 Neutrophils # 3.6 Lymphocytes # 1.2 Monocytes # 0.9 Eosinophils # 0.2 Basophils # 0.0 Nucleated Red Blood Cells # 0.0 Sodium Level 138 Potassium Level 3.9 Chloride Level 107 Carbon Dioxide Level 25 Anion Gap 10 Blood Urea Nitrogen 11 Creatinine 0.92 Glucose Level 156 Calcium Level 8.0 L Medications Medications Current Medications Potassium Chloride/Sodium Chloride 1,000 ml @ 60 mls/hr [id number] IV Last administered on 09/08/16 09:06; Admin Dose 60 MLS/HR; Start 09/04/16 at 05:00 Piperacillin Sod/ Tazobactam Sod (Zosyn 3.375gm/ 100 ml (Pmx)) 100 ml @ 200 mls /hr Q6 IVPB Last administered on 09/08/16 11:28; Admin Dose 200 MLS/HR; Start 09/04/16 at 06:00 Acetaminophen (Tylenol Tab) 650 mg Q4H PRN PO PAIN AND OR ELEVATED TEMP; Start 09/04/16 at 05:00 Ondansetron HCl (Zofran Inj) 4 mg Q6 PRN IV NAUSEA AND/OR VOMITING; Start 09/04 at 05:00 Enoxaparin Sodium (Lovenox) 40 mg DAILY SC Last administered on 09/08/16 09:08 ; Admin Dose 40 MG; Start 09/04/16 at 09:00 Hydralazine HCl (Apresoline) 10 mg Q4H PRN IV ELEVATED BLOOD PRESSURE; Start at 05:00 Amiodarone HCl (Cordarone) 200 mg MONWEDFRI PO Last administered on 09/06/16 09:19; Admin Dose 200 MG; Start 09/04/16 at 16:00 Aspirin (Aspirin) 81 mg DAILY PO Last administered on 09/08/16 09:04; Admin Dose 81 MG; Start 09/05/16 at 09:00 Carvedilol (Coreg) 3.125 mg BID PO Last administered on 09/08/16 09:04; Admin Dose 3.125 MG; Start 09/04/16 at 21:00 Ferrous Sulfate (Ferrous Sulfate (Ec)) 325 mg DAILY PO Last administered on 09:04; Admin Dose 325 MG; Start 09/05/16 at 09:00 Hydrochlorothiazide (Hydrochlorothiazide) 25 mg DAILY PO Last administered on 09:04; Admin Dose 25 MG; Start 09/05/16 at 09:00 Levothyroxine Sodium (Synthroid) 100 mcg DAILY@06 PO Last administered on 06:36; Admin Dose 100 MCG; Start 09/05/16 at 06:00 Montelukast Sodium (Singulair) 10 mg QHS PO Last administered on 09/07/16 20: 26; Admin Dose 10 MG; Start 09/04/16 at 21:00 Pantoprazole (Protonix Tab) 40 mg DAILY@06 PO Last administered on 09/08/16 06 :36; Admin Dose 40 MG; Start 09/05/16 at 06:00 Spironolactone (Aldactone) 25 mg DAILY PO Last administered on 09/08/16 09:04 ; Admin Dose 25 MG; Start 09/05/16 at 09:00 Terazosin HCl (Hytrin) 2 mg HS PO Last administered on 09/07/16 20:26; Admin Dose 2 MG; Start 09/04/16 at 21:00 MILO DENNEY Sep 08, 2016 14:53
[2016-09-08 19:10] VITALS: BP 128/62; RESP 18
[2016-09-08] MEDS: DOCUSATE SODIUM 100 MG CAP PO SCH (21:24)
[2016-09-08] MEDS: TERAZOSIN 2 MG CAP PO SCH (21:24)
[2016-09-08] MEDS: MONTELUKAST 10 MG TAB PO SCH (21:24)
[2016-09-09] MEDS: 1/2 NS + KCL 20 MEQ 1,000 ML IV SCH ×3 (00:21→19:15)
[2016-09-09] MEDS: PIPER-TAZO 3.375 GM IV (PMX) 100 ML IVPB SCH ×4 (00:22→18:11)
[2016-09-09] MEDS: PANTOPRAZOLE (EC) 40 MG TAB PO SCH (05:44)
[2016-09-09] MEDS: LEVOTHYROXINE 100 MCG TAB PO SCH (05:44)
[2016-09-09 05:54] LABS: ADD SCAN DIFF NO; BASOPHILS % 0.2 % (0.0-2.0); EOSINOPHILS # 0.3 10^3/ul (0.0-0.5); EOSINOPHILS % 5.1 % (0.0-7.0); HEMATOCRIT 27.8 % (42.0-52.0); HEMOGLOBIN 9.2 g/dl (14.0-18.0); LYMPHOCYTES # 1.4 10^3/ul (0.8-2.9); LYMPHOCYTES % 24.5 % (15.0-51.0); MEAN CORPUSCULAR HEMOGLOBIN 31.5 pg (29.0-33.0); MEAN CORPUSCULAR HGB CONC 33.1 g/dl (32.0-37.0); MEAN CORPUSCULAR VOLUME 95.2 fl (82.0-101.0); MEAN PLATELET VOLUME 8.5 fl (7.4-10.4); MONOCYTE # 0.8 10^3/ul (0.3-0.9); NEUTROPHIL # 3.1 10^3/ul (1.6-7.5); PLATELET COUNT 341 10^3/UL (140-415); RED BLOOD COUNT 2.92 10^6/ul (4.70-6.10); RED CELL DISTRIBUTION WIDTH 12.9 % (11.5-14.5); WHITE BLOOD COUNT 5.5 10^3/ul (4.8-10.8)
[2016-09-09 06:27] LABS: POTASSIUM 4.2 mmol/L (3.5-5.1)
[2016-09-09 06:30] LABS: CREATININE 0.89 mg/dl (0.61-1.24)
[2016-09-09 06:31] LABS: CALCIUM 8.7 mg/dl (8.4-10.2)
[2016-09-09 07:47] VITALS: BP 128/65; RESP 17
--- NOTE | 2016-09-09 07:58 | CONS ---
Date/Time of Note Date/Time of Note DATE: 09/09/16 TIME: 07:56 Assessment/Plan Assessment/Plan Chief Complaint/Hosp Course 85-year-old with history of sick sinus syndrome s/p pacemaker, paroxysmal atrial fibrillation, urinary retention, history of asthma, CHF, hypothyroidism, history of skin cancer on the arms, who presented with difficulty urinating. He also stated that he has a known history of BPH and follows with a urologist does not remember the name. Per Dr. Taylor, the patient does have a history of nodular prostate, and has had a prostate biopsy back in 2005 and that did not show any cancer. At that time, his PSA was elevated and the number is not available at the present. During this admission , his PSA was checked and found to be normal at 0.6. In the emergency room, patient underwent the CT scan of the abdomen and pelvis which revealed: 1. Mild mid abdominal and pelvic retroperitoneal fat stranding, symmetric to the left. There is also increased prominence of the retroperitoneum lymph nodes in this region. The findings were nonspecific, but might represent metastatic lymphadenopathy with lymphedema, possibly inflammatory process with reactive lymphadenopathy. - CT chest 09/05/[address], possible reactive and chronic bronchitis. - LDH normal which makes lymphoma less likely; additionally, AFP, CEA, CA 19-9 normal - PSA normal as well which makes metastatic prostate cancer less likely. Appreciate urology recommendations. - Discussed with radiology, lymph nodes are too small in both chest and abdomen to biopsy - Would recommend repeat imaging as an outpatient to see whether anything amenable to biopsy. Patient will follow-up with his PCP for repeat imaging and further management. - Hg currently stable. will defer to GI as to whether or not patient needs in patient colonoscopy Problems: Consultation Date/Type/Reason Admit Date/Time Sep 05, 2016 at 10:03 Initial Consult Date 09/05/16 Type of Consultation: Hematology/Oncology Reason for Consultation lymphadenopathy Referring Provider: GARLAND ALLEN MD 24 HR Interval Summary Free Text/Dictation no acute overnight events. pt states he is having a colonoscopy this morning Exam/Review of Systems Vital Signs Vitals Vital Signs Date Time Temp Pulse Resp B/P Pulse Ox O2 Delivery O2 Flow Rate FiO2 09/09/16 07:47 98.1 77 17 128/65 97 Intake and Output 09/08/16 09/08/16 09/09/16 15:00 23:00 07:00 Intake Total 200 ml 1600 ml 1170 ml Balance 200 ml 1600 ml 1170 ml Exam Constitutional: alert, oriented Psych: no complaints Head: normocephalic ENMT: nl external ears & nose Neck: non-tender, supple Respiratory: clear to auscultation Cardiovascular: nl pulses, regular rate and rhythm Gastrointestinal: soft Musculoskeletal: nl extremities to inspection Extremities: normal pulses Results Result Diagram: 09/09/16 0500 09/09/16 0426 Results 24 hrs Laboratory Tests Test 09/09/16 04:26 09/09/16 05:00 Sodium Level 139 Potassium Level 4.2 Chloride Level 106 Carbon Dioxide Level 28 Anion Gap 9 Blood Urea Nitrogen 14 Creatinine 0.89 Glucose Level 131 Calcium Level 8.7 White Blood Count 5.5 Red Blood Count 2.92 L Hemoglobin 9.2 L Hematocrit 27.8 L Mean Corpuscular Volume 95.2 Mean Corpuscular Hemoglobin 31.5 Mean Corpuscular Hemoglobin Concent 33.1 Red Cell Distribution Width 12.9 Platelet Count 341 # Mean Platelet Volume 8.5 Neutrophils % 55.0 Lymphocytes % 24.5 Monocytes % 15.0 H Eosinophils % 5.1 Basophils % 0.2 Nucleated Red Blood Cells % 0.0 Neutrophils # 3.1 Lymphocytes # 1.4 Monocytes # 0.8 Eosinophils # 0.3 Basophils # 0.0 Nucleated Red Blood Cells # 0.0 Medications Medications Current Medications Potassium Chloride/Sodium Chloride 1,000 ml @ 60 mls/hr [id number] IV Last administered on 09/09/16 00:21; Admin Dose 60 MLS/HR; Start 09/04/16 at 05:00 Piperacillin Sod/ Tazobactam Sod (Zosyn 3.375gm/ 100 ml (Pmx)) 100 ml @ 200 mls /hr Q6 IVPB Last administered on 09/09/16 05:44; Admin Dose 200 MLS/HR; Start 09/04/16 at 06:00 Acetaminophen (Tylenol Tab) 650 mg Q4H PRN PO PAIN AND OR ELEVATED TEMP; Start 09/04/16 at 05:00 Ondansetron HCl (Zofran Inj) 4 mg Q6 PRN IV NAUSEA AND/OR VOMITING; Start 09/04 at 05:00 Enoxaparin Sodium (Lovenox) 40 mg DAILY SC Last administered on 09/08/16 09:08 ; Admin Dose 40 MG; Start 09/04/16 at 09:00 Hydralazine HCl (Apresoline) 10 mg Q4H PRN IV ELEVATED BLOOD PRESSURE; Start at 05:00 Amiodarone HCl (Cordarone) 200 mg MONWEDFRI PO Last administered on 09/06/16 09:19; Admin Dose 200 MG; Start 09/04/16 at 16:00 Aspirin (Aspirin) 81 mg DAILY PO Last administered on 09/08/16 09:04; Admin Dose 81 MG; Start 09/05/16 at 09:00 Carvedilol (Coreg) 3.125 mg BID PO Last administered on 09/08/16 21:24; Admin Dose 3.125 MG; Start 09/04/16 at 21:00 Ferrous Sulfate (Ferrous Sulfate (Ec)) 325 mg DAILY PO Last administered on 09:04; Admin Dose 325 MG; Start 09/05/16 at 09:00 Hydrochlorothiazide (Hydrochlorothiazide) 25 mg DAILY PO Last administered on 09:04; Admin Dose 25 MG; Start 09/05/16 at 09:00 Levothyroxine Sodium (Synthroid) 100 mcg DAILY@06 PO Last administered on 05:44; Admin Dose 100 MCG; Start 09/05/16 at 06:00 Montelukast Sodium (Singulair) 10 mg QHS PO Last administered on 09/08/16 21: 24; Admin Dose 10 MG; Start 09/04/16 at 21:00 Pantoprazole (Protonix Tab) 40 mg DAILY@06 PO Last administered on 09/09/16 05 :44; Admin Dose 40 MG; Start 09/05/16 at 06:00 Spironolactone (Aldactone) 25 mg DAILY PO Last administered on 09/08/16 09:04 ; Admin Dose 25 MG; Start 09/05/16 at 09:00 Terazosin HCl (Hytrin) 2 mg HS PO Last administered on 09/08/16 21:24; Admin Dose 2 MG; Start 09/04/16 at 21:00 Docusate Sodium (Colace) 100 mg BID PO Last administered on 09/08/16 21:24; Admin Dose 100 MG; Start 09/08/16 at 21:00 CHELLE WILSON M.D. Sep 09, 2016 07:58
[2016-09-09] MEDS: ASPIRIN 81 MG TAB PO SCH (09:33)
[2016-09-09] MEDS: DOCUSATE SODIUM 100 MG CAP PO SCH ×2 (09:33→20:10)
[2016-09-09] MEDS: HYDROCHLOROTHIAZIDE 25 MG TAB PO SCH (09:33)
[2016-09-09] MEDS: FERROUS SULFATE (EC) 325 MG TAB PO SCH (09:33)
[2016-09-09] MEDS: SPIRONOLACTONE 25 MG TAB PO SCH (09:33)
[2016-09-09] MEDS: ENOXAPARIN 40 MG/0.4 ML SYG SC SCH (09:40)
[2016-09-09] MEDS: AMIODARONE 200 MG TAB PO SCH (09:43)
--- NOTE | 2016-09-09 12:38 | CONS ---
DATE OF ADMISSION: 09/05/2016 DATE OF CONSULTATION: CHIEF COMPLAINT: The patient presenting with history of nonspecific abdominal pain and a CAT scan of the abdomen shows possible metastatic disease. PHYSICAL EXAMINATION: GENERAL: The patient at this time is alert, well built. VITAL SIGNS: Afebrile. CARDIOVASCULAR: Normal heart sounds. RESPIRATORY: Normal breath sounds. ABDOMEN: Showed unremarkable findings. LABORATORY WORKUP: Hemoglobin went down to 8.8 yesterday, hematocrit 26.8, platelet count 270,000. WBC is 5,900. The chemistry shows potassium 5.2 on the of the month, but later on it was 4.5 on the of the month, and 4.2 today. The liver enzymes are normal. Alpha fetoprotein is 1.15. CEA level is 0.8, CA 19-9 is 3.0. IMAGING: Chest x-ray is unremarkable CAT scan as mentioned earlier on possible metastatic disease. CLINICAL IMPRESSION: The patient presenting with history of abdominal pain, possible metastatic dis ease in the abdomen noted. Rule out malignancy. She has anemia so gastrointestinal malignancy is g ood possibility. PLAN: We will proceed with upper endoscopy as well as lower endoscopy. Once again, doctor, thank you for this consultation. Dictated By: SHELLEY MONTOYA/PRISCILLA Conf#: [id number] DID#: [id number]
[2016-09-09 12:39] LABS: INR 1.05; PROTIME 13.7 Sec (12.2-14.2); PT RATIO 1.1
[2016-09-09] MEDS ORDERED: PEG/ELECTROLYTES 4L BTL PO SCH (13:30)
--- NOTE | 2016-09-09 18:06 | PN ---
DATE: 09/09/2016 CARDIOLOGY FOLLOWUP SUBJECTIVE: This patient with no chest pressure, no palpitations, feeling better. Denies abdominal pain, nausea, vomiting has been evaluated by GI and EGD and colonoscopy are planned. MEDICATIONS: Reviewed. PHYSICAL EXAMINATION: VITAL SIGNS: Temperature 98.1 heart rate of 77, blood pressure 128/65, respiration rate of 17, satu rating 97%. HEENT: Normocephalic, atraumatic. Pupils equal and round. CARDIOVASCULAR: Regular rate and rhythm, systolic murmur. PULMONARY: With no wheezes anteriorly. GASTROINTESTINAL: Soft, nontender. EXTREMITIES: No significant edema. NEUROLOGIC: Awake and alert. PSYCHIATRIC: Calm, pleasant. LABORATORY: WBC of 5.5, hemoglobin 9.2, hematocrit 34.1, sodium 139, potassium 4.2, BUN of 14, crea tinine 0.89, glucose 131. ASSESSMENT AND PLAN: 1. Sick sinus syndrome with permanent pacemaker. 2. History of paroxysmal atrial fibrillation, currently stable. 3. Possible prostate cancer. 4. Urinary retention has improved. 5. Thyroid disorder. 6. Cardiomyopathy, currently asymptomatic, stable. 7. History of hypertension. RECOMMENDATIONS: GI workup as per Dr. Dong's recommendations. Continue with the current cardiac care. Continue to monitor him. Dictated By: ZAN WINSLOW MD AV/PRISCILLA Conf#: [id number] DID#: [id number] CC: GARLAND ALLEN MD;*EndCC*
--- NOTE | 2016-09-09 18:38 | PN ---
Date/Time of Note Date/Time of Note DATE: 09/09/16 TIME: 18:34 Assessment/Plan VTE Prophylaxis VTE Prophylaxis Intervention: SCD's Lines/Catheters [facility] ([facility] Peripheral IV Urinary Cath still in place: No Assessment/Plan Chief Complaint/Hosp Course ASSESSMENT AND PLAN: 1. Urinary retention. Continue patient on terazosin. Dr. Taylor urology consultation is appreciated. continue to monitor intake and output. 2. Abdominal pain of unknown etiology. Dr. Dong is following in gastroenterology consultation. Pending EGD tomorrow. The patient's CT with lymphadenopathy. Dr. Toledo is following in hematology/oncology consultation. 3. Hypertension. Continue antihypertensive medication from home. 4. Permanent pacemaker. 5. Hypothyroidism. Continue Synthroid. 6. Asthma. Continue breathing treatment. 7. Congestive heart failure. Continue to monitor intake and output. Dr. Bingham is following the patient in cardiology consultation. Continue Lovenox for deep venous thrombosis prophylaxis and Protonix for peptic ulcer disease prophylaxis. Further recommendations based on clinical course. Plan of care discussed with Dr. Wilson. Problems: Subjective 24 Hr Interval Summary Free Text/Dictation Pending EGD tomorrow, no acute events, pt looks comfortable. Afebrile. voids. Exam/Review of Systems Vital Signs Vitals Vital Signs Date Time Temp Pulse Resp B/P Pulse Ox O2 Delivery O2 Flow Rate FiO2 09/09/16 07:47 98.1 77 17 128/65 97 Intake and Output 09/08/16 09/08/16 09/09/16 15:00 23:00 07:00 Intake Total 200 ml 1600 ml 1170 ml Balance 200 ml 1600 ml 1170 ml Exam PHYSICAL ASSESSMENT: GENERAL: Well-developed, well-nourished male in no acute distress, alert and oriented x4. HEENT: Head is atraumatic, normocephalic. PERRLA. NECK: Supple, no cervical lymphadenopathy, no thyromegaly. CHEST: Lungs clear bilaterally. There is no rhonchi, wheezes, rales noted. CARDIOVASCULAR: Normal S1, S2. No murmurs, gallops, clicks, rubs noted. Patient has a permanent pacemaker left chest. ABDOMEN: Round, soft, nondistended, nontender. Bowel sounds present. EXTREMITIES: No edema, clubbing, cyanosis. Pulses equal bilaterally 2+. SKIN: There is no rash or petechiae noted. NEUROLOGICAL: The patient is awake, alert and oriented x4. Results Result Diagram: 09/09/16 0500 09/09/16 0426 Results 24 hrs Laboratory Tests Test 09/09/16 04:26 09/09/16 05:00 09/09/16 12:15 Sodium Level 139 Potassium Level 4.2 Chloride Level 106 Carbon Dioxide Level 28 Anion Gap 9 Blood Urea Nitrogen 14 Creatinine 0.89 Glucose Level 131 Calcium Level 8.7 White Blood Count 5.5 Red Blood Count 2.92 L Hemoglobin 9.2 L Hematocrit 27.8 L Mean Corpuscular Volume 95.2 Mean Corpuscular Hemoglobin 31.5 Mean Corpuscular Hemoglobin Concent 33.1 Red Cell Distribution Width 12.9 Platelet Count 341 # Mean Platelet Volume 8.5 Neutrophils % 55.0 Lymphocytes % 24.5 Monocytes % 15.0 H Eosinophils % 5.1 Basophils % 0.2 Nucleated Red Blood Cells % 0.0 Neutrophils # 3.1 Lymphocytes # 1.4 Monocytes # 0.8 Eosinophils # 0.3 Basophils # 0.0 Nucleated Red Blood Cells # 0.0 Prothrombin Time 13.7 Prothrombin Time Ratio 1.1 INR International Normalized Ratio 1.05 Medications Medications Current Medications Potassium Chloride/Sodium Chloride 1,000 ml @ 60 mls/hr [id number] IV Last administered on 09/09/16 18:11; Admin Dose 60 MLS/HR; Start 09/04/16 at 05:00 Piperacillin Sod/ Tazobactam Sod (Zosyn 3.375gm/ 100 ml (Pmx)) 100 ml @ 200 mls /hr Q6 IVPB Last administered on 09/09/16 18:11; Admin Dose 200 MLS/HR; Start 09/04/16 at 06:00 Acetaminophen (Tylenol Tab) 650 mg Q4H PRN PO PAIN AND OR ELEVATED TEMP; Start 09/04/16 at 05:00 Ondansetron HCl (Zofran Inj) 4 mg Q6 PRN IV NAUSEA AND/OR VOMITING; Start 09/04 at 05:00 Enoxaparin Sodium (Lovenox) 40 mg DAILY SC Last administered on 09/09/16 09:40 ; Admin Dose 40 MG; Start 09/04/16 at 09:00 Hydralazine HCl (Apresoline) 10 mg Q4H PRN IV ELEVATED BLOOD PRESSURE; Start at 05:00 Amiodarone HCl (Cordarone) 200 mg MONWEDFRI PO Last administered on 09/09/16 09:43; Admin Dose 200 MG; Start 09/04/16 at 16:00 Aspirin (Aspirin) 81 mg DAILY PO Last administered on 09/09/16 09:33; Admin Dose 81 MG; Start 09/05/16 at 09:00 Carvedilol (Coreg) 3.125 mg BID PO Last administered on 09/09/16 09:35; Admin Dose 3.125 MG; Start 09/04/16 at 21:00 Ferrous Sulfate (Ferrous Sulfate (Ec)) 325 mg DAILY PO Last administered on 09:33; Admin Dose 325 MG; Start 09/05/16 at 09:00 Hydrochlorothiazide (Hydrochlorothiazide) 25 mg DAILY PO Last administered on 09:33; Admin Dose 25 MG; Start 09/05/16 at 09:00 Levothyroxine Sodium (Synthroid) 100 mcg DAILY@06 PO Last administered on 05:44; Admin Dose 100 MCG; Start 09/05/16 at 06:00 Montelukast Sodium (Singulair) 10 mg QHS PO Last administered on 09/08/16 21: 24; Admin Dose 10 MG; Start 09/04/16 at 21:00 Pantoprazole (Protonix Tab) 40 mg DAILY@06 PO Last administered on 09/09/16 05 :44; Admin Dose 40 MG; Start 09/05/16 at 06:00 Spironolactone (Aldactone) 25 mg DAILY PO Last administered on 09/09/16 09:33 ; Admin Dose 25 MG; Start 09/05/16 at 09:00 Terazosin HCl (Hytrin) 2 mg HS PO Last administered on 09/08/16 21:24; Admin Dose 2 MG; Start 09/04/16 at 21:00 Docusate Sodium 100 mg 100 mg BID PO Last administered on 09/09/16 09:33; Admin Dose 100 MG; Start 09/08/16 at 21:00 Potassium Chloride/Dextrose (KCl/D5W) 265 ml @ 88.333 mls/ hr ONCE PRN IVPB .ON 09/10 IF K < 3.6; Start 09/10/16 at 06:00; Stop 09/10/16 at 12:00 LEE LARA Sep 09, 2016 18:38
[2016-09-09 19:04] VITALS: BP 132/66; RESP 17
[2016-09-09] MEDS: MONTELUKAST 10 MG TAB PO SCH (20:10)
[2016-09-09] MEDS: TERAZOSIN 2 MG CAP PO SCH (20:11)
[2016-09-10] VITALS (9 sets, daily range): BP systolic 111–156; BP diastolic 51–87; PULSE 60–85; RESP 13–26
[2016-09-10] MEDS: PIPER-TAZO 3.375 GM IV (PMX) 100 ML IVPB SCH ×4 (00:16→18:28)
[2016-09-10 05:13] LABS: ADD SCAN DIFF NO
[2016-09-10] MEDS: LEVOTHYROXINE 100 MCG TAB PO SCH (05:19)
[2016-09-10] MEDS: PANTOPRAZOLE (EC) 40 MG TAB PO SCH (05:19)
[2016-09-10 05:21] LABS: BASOPHILS % 0.4 % (0.0-2.0); EOSINOPHILS # 0.3 10^3/ul (0.0-0.5); EOSINOPHILS % 5.8 % (0.0-7.0); HEMATOCRIT 26.7 % (42.0-52.0); LYMPHOCYTES # 1.5 10^3/ul (0.8-2.9); LYMPHOCYTES % 27.9 % (15.0-51.0); MEAN CORPUSCULAR HEMOGLOBIN 31.8 pg (29.0-33.0); MEAN CORPUSCULAR HGB CONC 33.7 g/dl (32.0-37.0); MEAN CORPUSCULAR VOLUME 94.3 fl (82.0-101.0); MEAN PLATELET VOLUME 8.4 fl (7.4-10.4); MONOCYTE # 0.7 10^3/ul (0.3-0.9); MONOCYTES % 13.1 % (0.0-11.0); NEUTROPHIL # 2.8 10^3/ul (1.6-7.5); NEUTROPHILS % 52.4 % (39.0-77.0); PLATELET COUNT 326 10^3/UL (140-415); RED BLOOD COUNT 2.83 10^6/ul (4.70-6.10); RED CELL DISTRIBUTION WIDTH 12.8 % (11.5-14.5); WHITE BLOOD COUNT 5.4 10^3/ul (4.8-10.8)
[2016-09-10] MEDS ORDERED: POTASSIUM CHLORIDE 30 MEQ in DEXTROSE 5% 250 ML IVPB PRN (06:00)
[2016-09-10 06:17] LABS: POTASSIUM 3.9 mmol/L (3.5-5.1)
[2016-09-10 06:20] LABS: CREATININE 0.83 mg/dl (0.61-1.24)
[2016-09-10 06:21] LABS: CALCIUM 8.7 mg/dl (8.4-10.2)
[2016-09-10] MEDS: ASPIRIN 81 MG TAB PO SCH (08:10)
[2016-09-10] MEDS: DOCUSATE SODIUM 100 MG CAP PO SCH ×2 (08:11→21:10)
[2016-09-10] MEDS: FERROUS SULFATE (EC) 325 MG TAB PO SCH (08:13)
[2016-09-10] MEDS: SPIRONOLACTONE 25 MG TAB PO SCH (08:14)
[2016-09-10] MEDS: HYDROCHLOROTHIAZIDE 25 MG TAB PO SCH (08:14)
[2016-09-10] MEDS: ENOXAPARIN 40 MG/0.4 ML SYG SC SCH (08:14)
--- NOTE | 2016-09-10 09:40 | RADRPT ---
PROCEDURE: XR Chest. CLINICAL INDICATION: Preop TECHNIQUE: A single AP view of the chest was obtained. COMPARISON: Chest x-ray dated 09/05/2016 FINDINGS: There is a left subclavian dual chamber pacemaker. No focal airspace opacification, pleural effusion or pneumothorax is seen. The cardiomediastinal si lhouette is within normal limits for size. Calcifications are seen within the aortic arch. The osseo us structures are unremarkable. IMPRESSION: 1. No radiographic evidence of acute cardiopulmonary disease. No significant interval change. 2. Aortic atherosclerosis. 3. Left subclavian dual chamber pacemaker. RPTAT: HH .Kerry Ahmadi MD, MD Date Time Electronically viewed and signed by .Kerry Ahmadi MD, on 09/10/2016 09:40 .G/
[2016-09-10] MEDS: 1/2 NS + KCL 20 MEQ 1,000 ML IV SCH ×3 (10:56→19:00)
[2016-09-10] MEDS ORDERED: PHENYLephrine (100 MCG/ML) 5ML SYG ONE (11:42)
[2016-09-10] MEDS ORDERED: PROPOFOL 40 ML ONE (11:42)
[2016-09-10] MEDS ORDERED: LIDOCAINE 2% (SDV) 5 ML INJ ONE (11:42)
[2016-09-10] MEDS ORDERED: ETOMIDATE 20 MG INJ ONE (11:48)
--- NOTE | 2016-09-10 11:53 | PN ---
Date/Time of Note Date/Time of Note DATE: 09/10/16 TIME: 11:52 Assessment/Plan VTE Prophylaxis VTE Prophylaxis Intervention: SCD's Lines/Catheters IV Catheter Type (from [facility]): Peripheral IV Urinary Cath still in place: No Assessment/Plan Chief Complaint/Hosp Course ASSESSMENT AND PLAN: 1. Urinary retention. Continue patient on terazosin. Dr. Taylor urology consultation is appreciated. continue to monitor intake and output. 2. Abdominal pain of unknown etiology. Dr. Dong is following in gastroenterology consultation. Pending EGD today. The patient's CT with lymphadenopathy. Dr. Toledo is following in hematology/oncology consultation. 3. Hypertension. Continue antihypertensive medication from home. 4. Permanent pacemaker. 5. Hypothyroidism. Continue Synthroid. 6. Asthma. Continue breathing treatment. 7. Congestive heart failure. Continue to monitor intake and output. Dr. Bingham is following the patient in cardiology consultation. Continue Lovenox for deep venous thrombosis prophylaxis and Protonix for peptic ulcer disease prophylaxis. Further recommendations based on clinical course. Plan of care discussed with Dr. Wilson. Problems: Subjective 24 Hr Interval Summary Free Text/Dictation Pending EGD and colonoscopy, pt is awake, alert, denies pain. Exam/Review of Systems Vital Signs Vitals Vital Signs Date Time Temp Pulse Resp B/P Pulse Ox O2 Delivery O2 Flow Rate FiO2 09/10/16 08:03 98.0 71 18 131/64 97 Intake and Output 09/09/16 09/09/16 09/10/16 14:59 22:59 06:59 Intake Total 5625 ml 664 ml Output Total 620 ml Balance 5625 ml 44 ml Exam PHYSICAL ASSESSMENT: GENERAL: Well-developed, well-nourished male in no acute distress, alert and oriented x4. HEENT: Head is atraumatic, normocephalic. PERRLA. NECK: Supple, no cervical lymphadenopathy, no thyromegaly. CHEST: Lungs clear bilaterally. There is no rhonchi, wheezes, rales noted. CARDIOVASCULAR: Normal S1, S2. No murmurs, gallops, clicks, rubs noted. Patient has a permanent pacemaker left chest. ABDOMEN: Round, soft, nondistended, nontender. Bowel sounds present. EXTREMITIES: No edema, clubbing, cyanosis. Pulses equal bilaterally 2+. SKIN: There is no rash or petechiae noted. NEUROLOGICAL: The patient is awake, alert and oriented x4. Results Result Diagram: 09/10/16 0441 09/10/16 0441 Results 24 hrs Laboratory Tests Test 09/09/16 12:15 09/10/16 04:41 Prothrombin Time 13.7 Prothrombin Time Ratio 1.1 INR International Normalized Ratio 1.05 White Blood Count 5.4 Red Blood Count 2.83 L Hemoglobin 9.0 L Hematocrit 26.7 L Mean Corpuscular Volume 94.3 Mean Corpuscular Hemoglobin 31.8 Mean Corpuscular Hemoglobin Concent 33.7 Red Cell Distribution Width 12.8 Platelet Count 326 Mean Platelet Volume 8.4 Neutrophils % 52.4 Lymphocytes % 27.9 Monocytes % 13.1 H Eosinophils % 5.8 Basophils % 0.4 Nucleated Red Blood Cells % 0.0 Neutrophils # 2.8 Lymphocytes # 1.5 Monocytes # 0.7 Eosinophils # 0.3 Basophils # 0.0 Nucleated Red Blood Cells # 0.0 Sodium Level 140 Potassium Level 3.9 Chloride Level 108 Carbon Dioxide Level 27 Anion Gap 9 Blood Urea Nitrogen 9 Creatinine 0.83 Glucose Level 97 Calcium Level 8.7 Medications Medications Current Medications Potassium Chloride/Sodium Chloride 1,000 ml @ 60 mls/hr [id number] IV Last administered on 09/09/16 19:15; Admin Dose 60 MLS/HR; Start 09/04/16 at 05:00 Piperacillin Sod/ Tazobactam Sod (Zosyn 3.375gm/ 100 ml (Pmx)) 100 ml @ 200 mls /hr Q6 IVPB Last administered on 09/10/16 11:05; Admin Dose 200 MLS/HR; Start 09/04/16 at 06:00 Acetaminophen (Tylenol Tab) 650 mg Q4H PRN PO PAIN AND OR ELEVATED TEMP; Start 09/04/16 at 05:00 Ondansetron HCl (Zofran Inj) 4 mg Q6 PRN IV NAUSEA AND/OR VOMITING; Start 09/04 at 05:00 Enoxaparin Sodium (Lovenox) 40 mg DAILY SC Last administered on 09/09/16 09:40 ; Admin Dose 40 MG; Start 09/04/16 at 09:00 Hydralazine HCl (Apresoline) 10 mg Q4H PRN IV ELEVATED BLOOD PRESSURE; Start at 05:00 Amiodarone HCl (Cordarone) 200 mg MONWEDFRI PO Last administered on 09/09/16 09:43; Admin Dose 200 MG; Start 09/04/16 at 16:00 Aspirin (Aspirin) 81 mg DAILY PO Last administered on 09/09/16 09:33; Admin Dose 81 MG; Start 09/05/16 at 09:00 Carvedilol (Coreg) 3.125 mg BID PO Last administered on 09/10/16 08:32; Admin Dose 3.125 MG; Start 09/04/16 at 21:00 Ferrous Sulfate (Ferrous Sulfate (Ec)) 325 mg DAILY PO Last administered on 09:33; Admin Dose 325 MG; Start 09/05/16 at 09:00 Hydrochlorothiazide (Hydrochlorothiazide) 25 mg DAILY PO Last administered on 09:33; Admin Dose 25 MG; Start 09/05/16 at 09:00 Levothyroxine Sodium (Synthroid) 100 mcg DAILY@06 PO Last administered on 05:44; Admin Dose 100 MCG; Start 09/05/16 at 06:00 Montelukast Sodium (Singulair) 10 mg QHS PO Last administered on 09/09/16 20: 10; Admin Dose 10 MG; Start 09/04/16 at 21:00 Pantoprazole (Protonix Tab) 40 mg DAILY@06 PO Last administered on 09/09/16 05 :44; Admin Dose 40 MG; Start 09/05/16 at 06:00 Spironolactone (Aldactone) 25 mg DAILY PO Last administered on 09/09/16 09:33 ; Admin Dose 25 MG; Start 09/05/16 at 09:00 Terazosin HCl (Hytrin) 2 mg HS PO Last administered on 09/09/16 20:11; Admin Dose 2 MG; Start 09/04/16 at 21:00 Docusate Sodium 100 mg 100 mg BID PO Last administered on 09/09/16 20:10; Admin Dose 100 MG; Start 09/08/16 at 21:00 Potassium Chloride/Dextrose (KCl/D5W) 265 ml @ 88.333 mls/ hr ONCE PRN IVPB .ON 09/10 IF K < 3.6; Start 09/10/16 at 06:00; Stop 09/10/16 at 12:00 LEE LARA Sep 10, 2016 11:53
[2016-09-10] MEDS ORDERED: METOCLOPRAMIDE 10 MG INJ IV PRN (12:00)
[2016-09-10] MEDS ORDERED: OXYCODONE/ACETAMINOPHEN (5/325) TAB PO PRN ×2 (12:00)
[2016-09-10] MEDS ORDERED: hydrALAzine 20 MG INJ IV PRN (12:00)
[2016-09-10] MEDS ORDERED: HYDROmorphONE (0.2 MG/ML) 10ML SYG IV PRN ×3 (12:00)
[2016-09-10] MEDS ORDERED: ONDANSETRON 4 MG INJ IV PRN (12:00)
--- NOTE | 2016-09-10 13:58 | PN ---
DATE: 09/10/2016 CARDIOLOGY FOLLOWUP PROGRESS NOTE SUBJECTIVE: No new cardiac event. The patient no chest pain or pressure. No palpitation, no abdom inal pain. The patient denies any urinary discomfort to me. He is awaiting a colonoscopy. MEDICATIONS: Reviewed as per medication reconciliation, was personally reviewed. PHYSICAL EXAMINATION: VITAL SIGNS: Temperature 98, heart rate of 71, blood pressure 131/64, respiratory rate 18, saturati ng 97%. HEENT: Normocephalic, atraumatic. Pupils are equal. CARDIOVASCULAR: Regular rate and rhythm. Systolic murmur, grade I. PULMONARY: No wheezes, no rhonchi. GASTROINTESTINAL: Soft, nontender. No rebound or guarding. EXTREMITIES: No significant lower extremity edema. NEUROLOGIC: Awake and alert. PSYCHIATRIC: Appears to be calm and very pleasant. LABORATORY: WBC of 5.4, hemoglobin 9, platelets of 326. Sodium 140, potassium 3.9, BUN of 9, creat inine 0.82, glucose 97. Chest x-ray done this morning shows no acute cardiopulmonary disease. ASSESSMENT AND PLAN: 1. Sick sinus syndrome, history of permanent pacemaker. 2. Abdominal discomfort. GI workup is pending. 3. Urinary retention, has improved. 4. Thyroid disorder. 5. Cardiomyopathy, currently stable. 6. Hypertension, under good control. RECOMMENDATIONS: We will continue with the current cardiac care. We are awaiting GI workup. Dictated By: ZAN PHOENIX/PRISCILLA Conf#: [id number] DID#: [id number]
--- NOTE | 2016-09-10 15:30 | GILP ---
DATE OF PROCEDURE: 09/10/2016 PROCEDURE: Esophagogastroduodenoscopy. 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 Rule out gastric malignancy. POSTOPERATIVE DIAGNOSES: 1. Moderate degree of gastritis. 2. Linda of the esophagus. DESCRIPTION OF PROCEDURE: After the informed written consent was obtained, the patient was asked to lie on the left lateral side. Intravenous anesthesia was given by certified registered nurse anest hetist. When the patient became somnolent, the Olympus video upper endoscope was introduced into th e oropharynx, then into the esophagus. Esophagus showed evidence of whitish circular and oval shape d patches. This is consistent with Linda of the esophagus. Photographs and random biopsies were obtained. Scope at this time was advanced into the stomach. Entire stomach showed evidence of cinthia re degree of erythema and friability with loss of folds of the stomach. Biopsy was obtained from th e antrum and the fundus to rule out H. pylori infection and any other histological abnormality. Duo denum showed normal mucosal pattern up to the end of the third portion. Scope at this time was with drawn and no additional abnormalities detected and the procedure was terminated. PLAN: Recommend proton pump inhibitor therapy. Dictated By: SHELLEY MONTOYA/NTS Conf#: [id number] DID#: [id number] CC: GARLAND ALLEN MD;*EndCC*
--- NOTE | 2016-09-10 15:40 | GILP ---
DATE OF PROCEDURE: PROCEDURE: Colonoscopy. SURGEON: Shelley Dong MD PREOPERATIVE DIAGNOSIS: A patient presenting with history of metastatic lesions in the abdominal ca vity. The patient also has anemia. Rule out colorectal neoplasm. POSTOPERATIVE DIAGNOSES: 1. A 4 mm sessile polyp in the mid transverse colon. This was removed with the cold biopsy forceps . 2. Diverticulosis. 3. External hemorrhoids. DESCRIPTION OF PROCEDURE: After the informed written consent was obtained, the patient was asked to lie on the left lateral side. Intravenous anesthesia was given by the FISHER CRAB. When the patient nahum me somnolent, the Olympus video colonoscope was introduced into the rectum and the scope was advance d all the way to the cecum. The entire colon appeared perfectly normal. A 4 mm sessile polyp was n oted in the mid transverse colon. This was removed with the help of a cold biopsy forceps. This po lyp appeared benign and is not bleeding. Moderate degree of diverticulosis noted scattered all silviano g the colon. No bleeding noted. Cecum appeared normal. Endoscope at this time was withdrawn. On the way out, retroflexion was performed. No major hemorrhoids were noted. When the scope was withd rawn, moderate degree of hemorrhoids were noted and the procedure was terminated. PLAN: Recommend wait for the pathology report. Dictated By: SHELLEY DONG MD [place]/NTS Conf#: [id number] DID#: [id number] CC: SHELLEY DONG MD; GARLAND ALLEN MD;*EndCC*
[2016-09-10] MEDS: TERAZOSIN 2 MG CAP PO SCH (21:10)
[2016-09-10] MEDS: MONTELUKAST 10 MG TAB PO SCH (21:10)
[2016-09-11] MEDS: PIPER-TAZO 3.375 GM IV (PMX) 100 ML IVPB SCH ×2 (00:01→05:32)
--- NOTE | 2016-09-11 00:35 | CONS ---
DATE OF ADMISSION: 09/05/2016 DATE OF CONSULTATION: 09/10/2016 TYPE OF CONSULTATION: Surgical. REFERRING PHYSICIAN: Oswaldo Wilson MD CHIEF COMPLAINT: 1. Lymphadenopathy. 2. Colonic polyps. 3. Diverticulosis. HISTORY OF PRESENT ILLNESS: Jourdan Muhammad is an 85-year-old male with multiple significant comorbi dities who presented with urinary retention and bloating who on initial CT scan was found to have mi ld abdominal and pelvic retroperitoneal fat stranding with increased prominence of retroperitoneal l ymph nodes. He was admitted, and symptoms have improved. The patient underwent EGD and colonoscopy today that identified a transverse colon polyp with esophagitis and gastritis. Surgical consult is obtained for further evaluation and treatment at this time. PAST MEDICAL HISTORY: 1. Left foot Kaposi sarcoma history. 2. 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 Riley). 3. BPH. 4. Urinary retention. 5. Hypertension. 6. Diabetes mellitus, diet controlled. 7. Asthma. 8. Coronary artery calcifications. 9. Diverticulosis. 10. Right inguinal hernia, recurrent, with fat. 11. Anemia. 12. History of acute appendicitis. 13. Hypercholesterolemia. 14. Gastroesophageal reflux disease. 15. Esophagitis. 16. Gastritis. 17. Hypothyroidism. 18. Hiatal hernia. 19. Hemorrhoids. 20. Colonic polyps, previously tubular adenoma. Current biopsy pending. 21. History of symptomatic bradycardia, status post pacemaker. 22. Cardiomyopathy with history of ventricular tachycardia, previously on amiodarone. PAST SURGICAL HISTORY: 1. EGD. 2. Colonoscopies. 3. Pacemaker. 4. [place]guinal her[place]. 5. Hammertoe repair, 2nd digit right foot. MEDICATIONS: As per ____. ALLERGIES: PER CHART. SOCIAL HISTORY: No current alcohol, drugs or tobacco. FAMILY HISTORY: Noncontributory. REVIEW OF SYSTEMS: No weight changes. No fevers or chills. No nausea, vomiting. Bloating has imp roved. No abdominal pain. Bowel function. Twelve-point review of systems negative unless otherwis e addressed. PHYSICAL EXAMINATION: VITAL SIGNS: Temperature is 98.4, pulse 72, blood pressure 125/58, satting 97%. GENERAL: No acute distress. HEENT: Pupils equal, reactive. No scleral icterus. Mucous membranes are moist. NECK: Supple. No crepitus, no JVD. PULMONARY: Normal respiratory effort. No wheezing. CARDIAC: S1, S2 present and regular. ABDOMEN: Soft, nontender. No rebound, no guarding. Positive reducible right inguinal hernia. Sma ll umbilical hernia. EXTREMITIES: No edema. VASCULAR: Capillary refill less than 2 seconds. NEUROLOGIC: Alert, oriented, moves all 4 extremities grossly. LYMPHATICS: No cervical, clavicular or axillary lymph nodes palpable. Inguinal lymph nodes very sm all and deep. LABORATORY AND RADIOGRAPHIC: As per chart and HPI. ASSESSMENT AND PLAN: Jourdan Flores is an 85-year-old male with multiple significant comorbidities. 1. Lymphadenopathy, possibly related to his questionable lymphoma history. I need to get more info rmation from Dr. Riley. I had a long discussion with the patient's daughter, Carlotta at , who does not want us to proceed with surgery until we have discussed this matter further wit h Dr. Riley, who is the patient's primary oncologist. 2. Right inguinal hernia, recurrent and asymptomatic. No surgical intervention as per the patient and family. 3. Urinary retention, improved and followed by Urology. 4. Anemia without evidence of acute blood loss. Continue monitoring. 5. Hypertension. Continue nutrition and medication optimization. 6. Diabetes. Continue nutrition optimization. 7. Hypothyroidism. Continue medical management. Thank you very much for consulting me in this patient's care. Dictated By: JA PABON/PRISCILLA Conf#: [id number] DID#: [id number]
[2016-09-11] MEDS: 1/2 NS + KCL 20 MEQ 1,000 ML IV SCH (03:40)
[2016-09-11] MEDS: LEVOTHYROXINE 100 MCG TAB PO SCH (05:31)
[2016-09-11] MEDS: PANTOPRAZOLE (EC) 40 MG TAB PO SCH (05:31)
[2016-09-11 08:18] VITALS: BP 146/69; RESP 20
[2016-09-11] MEDS: ENOXAPARIN 40 MG/0.4 ML SYG SC SCH (08:32)
[2016-09-11] MEDS: HYDROCHLOROTHIAZIDE 25 MG TAB PO SCH (08:33)
[2016-09-11] MEDS: ASPIRIN 81 MG TAB PO SCH (08:33)
[2016-09-11] MEDS: DOCUSATE SODIUM 100 MG CAP PO SCH ×2 (08:33→21:14)
[2016-09-11] MEDS: SPIRONOLACTONE 25 MG TAB PO SCH (08:33)
[2016-09-11] MEDS: FERROUS SULFATE (EC) 325 MG TAB PO SCH (08:33)
[2016-09-11] MEDS: AMIODARONE 200 MG TAB PO SCH (08:38)
--- NOTE | 2016-09-11 09:53 | PN ---
DATE: 09/11/2016 CARDIOLOGY FOLLOWUP PROGRESS NOTE SUBJECTIVE: The patient with no chest pain or pressure. No palpitation. Status post colonoscopy y esterday. Biopsy was done. No abdominal pain, nausea, vomiting, and wants to go home. MEDICATIONS: Reviewed. PHYSICAL EXAMINATION: VITAL SIGNS: Temperature 98.1, heart rate of 72, blood pressure 146/69, respiratory rate of 20, sat urating 97%. HEENT: Normocephalic, atraumatic. Pupils equal and round. CARDIOVASCULAR: Regular rate and rhythm, systolic murmur. PULMONARY: With no wheezes, no rhonchi. GASTROINTESTINAL: Soft, nontender. No rebound or guarding. EXTREMITIES: No significant lower extremity edema. NEUROLOGIC: Awake, alert, oriented. PSYCHIATRIC: Appears to be calm and pleasant. DIAGNOSTIC IMPRESSION: 1. Sick-sinus syndrome, status post permanent pacemaker. 2. Abdominal discomfort and lymphadenopathy. Follow up with the GI and surgery recommendations as well as hem/onc. 3. Hypertension, under control now 4. Thyroid disorder on Synthroid. 5. History of congestive heart failure, currently well compensated. RECOMMENDATIONS: We will continue with the current cardiac care. Follow up with surgery, GI, and h em/onc recommendations. Dictated By: ZAN PHOENIX/PRISCILLA Conf#: [id number] DID#: [id number]
[2016-09-11] MEDS ORDERED: FLUCONAZOLE 200 MG TAB PO ONE (11:00)
--- NOTE | 2016-09-11 11:02 | PN ---
DATE: CHIEF COMPLAINT: The patient came with abdominal pain which is resolved. Workup showed evidence of lymphadenopathy on the CAT scan of the abdomen in the peritoneal area, mediastinal area. EGD showe d gastritis. Colonoscopy showed small polyp. Biopsies are pending. EGD also showed Linda of the esophagus. CLINICAL IMPRESSION: Metastatic disease is the likely possibility based on the fact that he has got a Linda of the esophagus in a presenting immunosuppression. PLAN: At this time, the laparoscopic evaluation will be helpful to rule out metastatic disease and do a biopsy and this will be decided as soon as the family agrees for this procedure. Dictated By: SHELLEY MONTOYA/PRISCILLA Conf#: [id number] DID#: [id number]
--- NOTE | 2016-09-11 14:57 | RADRPT ---
Vent Rate: 75 bpm RR Interval: 0 msec GA Interval: 152 msec QRS Duration: 192 msec QT Interval: 486 msec QTC Interval: 542 msec P-R-T [place]: 37 - -76 - 85 degrees AV sequential or dual chamber electronic pacemaker Electronically Signed By: Orlin Montez [id number]
--- NOTE | 2016-09-11 18:20 | PN ---
Date/Time of Note Date/Time of Note DATE: 09/11/16 TIME: 18:11 Assessment/Plan VTE Prophylaxis VTE Prophylaxis Intervention: SCD's Lines/Catheters IV [facility] Type [facility]from [facility] Peripheral IV Urinary Cath still in place: No Assessment/Plan Chief Complaint/Hosp Course ASSESSMENT AND PLAN: - Retroperitoneal lymphadenopathy. Dr. Sebastian is following in general surgery consultation. D/W Dr. Sebastian. Dr. Riley will see patient in hematology /oncology consultation, apparently he was following patient for for the same problem as an outpatient. - Urinary retention. Continue patient on terazosin. Dr. Taylor urology consultation is appreciated. continue to monitor intake and output. - Abdominal pain of unknown etiology. Dr. Dong is following in gastroenterology consultation. Pending EGD today. The patient's CT with lymphadenopathy. Dr. Toledo is following in hematology/oncology consultation. - Hypertension. Continue antihypertensive medication from home. - Permanent pacemaker. - Hypothyroidism. Continue Synthroid. - Asthma. Continue breathing treatment. - Congestive heart failure. Continue to monitor intake and output. Dr. Bingham is following the patient in cardiology consultation. Continue Lovenox for deep venous thrombosis prophylaxis and Protonix for peptic ulcer disease prophylaxis. Further recommendations based on clinical course. Plan of care discussed with Dr. Wilson. Problems: Subjective 24 Hr Interval Summary Free Text/Dictation Patient is stable status post colonoscopy, denies any nausea vomiting diarrhea, denies any chest pain. Exam/Review of Systems Vital Signs Vitals Vital Signs Date Time Temp Pulse Resp B/P Pulse Ox O2 Delivery O2 Flow Rate FiO2 09/11/16 08:18 98.1 72 20 146/69 97 09/10/16 14:00 Room Air Intake and Output 09/10/16 09/10/16 09/11/16 15:00 23:00 07:00 Intake Total 100 ml 1840 ml 1100 ml Output Total 900 ml Balance 100 ml 940 ml 1100 ml Exam PHYSICAL ASSESSMENT: GENERAL: Well-developed, well-nourished male in no acute distress, alert and oriented x4. HEENT: Head is atraumatic, normocephalic. PERRLA. NECK: Supple, no cervical lymphadenopathy, no thyromegaly. CHEST: Lungs clear bilaterally. There is no rhonchi, wheezes, rales noted. CARDIOVASCULAR: Normal S1, S2. No murmurs, gallops, clicks, rubs noted. Patient has a permanent pacemaker left chest. ABDOMEN: Round, soft, nondistended, nontender. Bowel sounds present. EXTREMITIES: No edema, clubbing, cyanosis. Pulses equal bilaterally 2+. SKIN: There is no rash or petechiae noted. NEUROLOGICAL: The patient is awake, alert and oriented x4. Results Result Diagram: 09/10/161 09/10/16440 Medications Medications Current Medications Acetaminophen (Tylenol Tab) 650 mg Q4H PRN PO PAIN AND OR ELEVATED TEMP; Start 09/04/16 at 05:00 Ondansetron HCl (Zofran Inj) 4 mg Q6 PRN IV NAUSEA AND/OR VOMITING; Start 09/04 at 05:00 Enoxaparin Sodium (Lovenox) 40 mg DAILY SC Last administered on 09/11/16 08:32 ; Admin Dose 40 MG; Start 09/04/16 at 09:00 Hydralazine HCl (Apresoline) 10 mg Q4H PRN IV ELEVATED BLOOD PRESSURE; Start at 05:00 Amiodarone HCl (Cordarone) 200 mg MONWEDFRI PO Last administered on 09/11/16 08:38; Admin Dose 200 MG; Start 09/04/16 at 16:00 Aspirin (Aspirin) 81 mg DAILY PO Last administered on 09/11/16 08:33; Admin Dose 81 MG; Start 09/05/16 at 09:00 Carvedilol (Coreg) 3.125 mg BID PO Last administered on 09/11/16 08:33; Admin Dose 3.125 MG; Start 09/04/16 at 21:00 Ferrous Sulfate (Ferrous Sulfate (Ec)) 325 mg DAILY PO Last administered on 08:33; Admin Dose 325 MG; Start 09/05/16 at 09:00 Hydrochlorothiazide (Hydrochlorothiazide) 25 mg DAILY PO Last administered on 08:33; Admin Dose 25 MG; Start 09/05/16 at 09:00 Levothyroxine Sodium (Synthroid) 100 mcg DAILY@06 PO Last administered on 05:31; Admin Dose 100 MCG; Start 09/05/16 at 06:00 Montelukast Sodium (Singulair) 10 mg QHS PO Last administered on 09/10/16 21: 10; Admin Dose 10 MG; Start 09/04/16 at 21:00 Pantoprazole (Protonix Tab) 40 mg DAILY@06 PO Last administered on 09/11/16 05 :31; Admin Dose 40 MG; Start 09/05/16 at 06:00 Spironolactone (Aldactone) 25 mg DAILY PO Last administered on 09/11/16 08:33 ; Admin Dose 25 MG; Start 09/05/16 at 09:00 Terazosin HCl (Hytrin) 2 mg HS PO Last administered on 09/10/16 21:10; Admin Dose 2 MG; Start 09/04/16 at 21:00 Docusate Sodium (Colace) 100 mg BID PO Last administered on 09/11/16 08:33; Admin Dose 100 MG; Start 09/08/16 at 21:00 LEE LARA Sep 11, 2016 18:20
[2016-09-11 19:14] VITALS: BP 137/65; RESP 22
[2016-09-11] MEDS: MONTELUKAST 10 MG TAB PO SCH (21:13)
[2016-09-11] MEDS: TERAZOSIN 2 MG CAP PO SCH (21:14)
--- NOTE | 2016-09-11 21:29 | PN ---
Date/Time of Note Date/Time of Note DATE: 09/11/16 TIME: 21:27 Assessment/Plan Lines/Catheters IV Catheter Type (from [facility]): Peripheral IV Davidson in Place (from [facility]): No Assessment/Plan Chief Complaint/Hosp Course 1. Lymphadenopathy is chronic as per Dr. Riley. -f/u with oncology and f/u with me if still desire LN biopsy 2. Right inguinal hernia, recurrent and asymptomatic. No surgical intervention as per the patient and family. 3. Urinary retention, improved and followed by Urology. 4. Anemia without evidence of acute blood loss. Continue monitoring. 5. Hypertension. Continue nutrition and medication optimization. 6. Diabetes. Continue nutrition optimization. 7. Hypothyroidism. Continue medical management. Thank you Problems: Subjective 24 Hr Interval Summary No pain. No n/v. No f/c. No cp/sob. No cough. No mcintyre/dizzy/visual or neuro changes. No dysuria. Bowel function. Exam/Review of Systems Vital Signs Vitals Vital Signs Date Time Temp Pulse Resp B/P Pulse Ox O2 Delivery O2 Flow Rate FiO2 09/11/16 19:14 98.4 65 22 137/65 99 09/10/16 14:00 Room Air Intake and Output 09/10/16 09/10/16 09/11/16 15:00 23:00 07:00 Intake Total 100 ml 1840 ml 1100 ml Output Total 900 ml Balance 100 ml 940 ml 1100 ml Exam Free Text/Dictation GENERAL: No acute distress. HEENT: Pupils equal, reactive. No scleral icterus. Mucous membranes are moist. NECK: Supple. No crepitus, no JVD. PULMONARY: Normal respiratory effort. No wheezing. CARDIAC: S1, S2 present and regular. ABDOMEN: Soft, nontender. No rebound, no guarding. Positive reducible right inguinal hernia. Small umbilical hernia. EXTREMITIES: No edema. VASCULAR: Capillary refill less than 2 seconds. NEUROLOGIC: Alert, oriented, moves all 4 extremities grossly. LYMPHATICS: No cervical, clavicular or axillary lymph nodes palpable. Inguinal lymph nodes very small and deep. Results Result Diagram: 09/10/16 0441 09/10/16 0441 JA MIKE MD Sep 11, 2016 21:29
[2016-09-11 21:35] LABS: IMMUNOGLOBULIN G 1070 mg/dl (700-1600)
[2016-09-11 21:37] LABS: IMMUNOGLOBULIN A 307 mg/dl (70-400)
[2016-09-11 21:48] LABS: IMMUNOGLOBULIN M 281 mg/dl (40-230)
--- NOTE | 2016-09-11 22:34 | CONS ---
DATE OF ADMISSION: 09/05/2016 DATE OF CONSULTATION: 09/11/2016 TYPE OF CONSULTATION: Hematology/oncology. PHYSICIAN REQUESTING CONSULTATION: Oswaldo Wilson MD REASON FOR CONSULTATION: Possible lymphadenopathy. Dear Dr. Wilson, Thank you very much for asking us to see this very interesting and pleasant gentleman in hematologic and oncologic consultation. As you know, Mr. Muhammad is an 85-year-old male who was admitted to [facility] on 09/04/2016 with complaints of abdominal pain. The patient also had s ome urinary retention. During this hospitalization, the patient did have a CT scan of the abdomen and pelvis which revealed some possible retroperitoneal lymphadenopathy and also possible mediastinal lymphadenopathy. It should be noted that this patient has been cared for by my partner, Dr. Fredy Riley, since at least 2014. The patient at that time may have been hospitalized a few weeks earlier in [place] with possible b ronchitis and pulmonary emboli. During that hospitalization, the patient was found to have adenopat hy. In fact, the patient did have a fine-needle aspirate of an axillary lymph node done at that [facility]. This was performed on 07/25/2014. The findings showed an atypical lymphoid process comprised of mixed lymphoid and increased plasma cells and/or plasmacytoid lymphocytes. There was no malignancy diagnosed. 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 These involved the feet and lower extremities. The patient has never received any ther apy for this. The patient has had repeated evaluations, and lymphadenopathy has either been stable or improved. T here has never been a diagnosis of any other malignancy. The patient has had previous evaluations for HIV infections, and these have been negative. The patient's past medical history includes those things mentioned above. The patient also has a hi story of sick sinus syndrome with paroxysmal supraventricular tachycardia. The patient has a pacema ker in place. He has had hypertension, type 2 diabetes mellitus, history of benign prostatic hypert rophy, "asthma," congestive heart failure, hypothyroidism and, as noted, the Kaposi sarcoma. The pa agus also has history of possible pulmonary emboli. The patient was on apixaban prior to admission to the hospital. As noted on admission, the patient did have a CT scan of the abdomen and pelvis. This did show mild abnormal pelvic or retroperitoneal fat stranding. There was increased prominence of the retroperit dent nodes in these regions. There was no other mesenteric adenopathy. A CT scan of the chest dem onstrated nonspecific prominence of mediastinal lymph nodes. There were no axillary, supraclavicula r lymph nodes noted. No pulmonary, parenchymal masses. On admission, the patient's sodium is 134, potassium 5.2, BUN 34, creatinine 0.93. The bilirubin is 0.2 total, 0.2 direct, AST 24, ALT 22, alkaline phosphatase 97. LDH was 287. PSA 0.6. CEA 0.8, C A 19-9 of 3 and alpha-fetoprotein 1.15. On admission, the patient's white count was 5800, hemoglobi n 11, hematocrit 32.9 and platelet count 206,000. Since admission, the hemoglobin has decreased. W teddy count today is 5400, hemoglobin 9, hematocrit 26.7 and platelet count 326,000. As part of the patient's evaluation, he did undergo an EGD which showed moderate degree of gastritis and cee of the esophagus. The patient also underwent a colonoscopy which revealed a 4 mm sessi le polyp in the mid transverse colon. Biopsy of this polyp did not reveal any malignancy or atypia. The patient now states that his symptoms of abdominal pain have resolved. Other than the abdominal pain, the patient states he has felt well. He has had no unusual weight lo ss or gain. No complaints of abdominal distention. No back pain. No fevers or night sweats. PHYSICAL EXAMINATION: GENERAL: At this time reveals a well-developed, well-nourished male who is in no acute dis tress. VITAL SIGNS: Temperature 98.4, pulse 65 per minute, respirations 22, blood pressure 136/65, and pul se oximetry is 99% on room air. SKIN: Pale. No ecchymosis or petechiae. There are violaceous lesions on the patient's feet and pr etibial area. They are not raised. No ulcerations. HEENT: Normocephalic. No evidence of trauma. The pupils equal, round, react to light and accommod ation. Sclerae nonicteric. Oral mucosa is moist without lesions. Tongue is well papillated. Ther e is no gingival hyperplasia, no hypertrophy of Waldeyer ring, no mucosal telangiectasias. NECK: Supple. No jugular venous distention or thyroid enlargement. No carotid bruits. CHEST: Clear to auscultation, percussion. No rhonchi, wheezes, rales or rubs. NODES: No palpable lymphadenopathy in lymph node-bearing area. BREASTS: No gynecomastia. HEART: Regular sinus rhythm. No S3, S4 or murmurs. No rubs. ABDOMEN: Flat and soft. There is no organomegaly. No mass or tenderness. Bowel sounds are active . EXTREMITIES: Good range of motion. No clubbing, edema or cyanosis. There are the previously noted violaceous lesions on the patient's feet and pretibial areas. NEUROLOGIC: Normal. This patient has had a history of lymphadenopathy in the past. Biopsies have been proven to be nond iagnostic. This lymphadenopathy has actually decreased over the last 2 years in spite of no treatme nt. 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 He has no history of HIV infection, no history of taking immunosuppressive agents. The patient does have esophageal cee seen on EGD, but he has been on prednisone. At this time, I do not feel that the patient needs to remain in the hospital, that the questionable lymphadenopathy requires any further pursuit. As noted, the patient does have the history of biopsy-proven Kaposi sarcoma. It is unclear whether he has ever been tested for human herpesvirus 8. As noted, I feel he can be discharged tonight. I will request, however, a stat human herpesvirus 8 IgG antibody. Will also obtain a serum protein electrophoresis immunofixation as well as quantitati ve immunoglobulins and a T-cell subset analysis. Dictated By: BRETT MANN MD, SR/NTS Conf#: [id number] DID#: [id number]
[2016-09-13 15:26] LABS: LYMPHOCYTE - % CD4 (HELPER) 22 % (30-61); LYMPHOCYTE - %CD8 (SUPPRESSOR) 59 % (12-42); LYMPHOCYTE - ABSOLUTE CD4 487 cells/uL (490-1740); LYMPHOCYTE - ABSOLUTE CD8 1321 cells/uL (180-1170); LYMPHOCYTE - CD4/CD8 RATIO 0.37 (0.86-5.00)
[2016-09-13 22:17] LABS: ALBUMIN 3.7 g/dL (3.8-4.8)
== END 2016-09-11 21:50 | disposition home or self-care (01) | DRG 815 ==
LOC: E/R 19:59 → MS1 09-04 00:41 → OBSVTOIN 09-05 10:03
PROVIDERS: ADMIT Internal Medicine; ATTEND Internal Medicine
PROC: 0DBL8ZX Excision of Transverse Colon, Via Natural or Artificial Opening Endoscopic, Diagnostic (ICD-10-PCS; 2016-09-10)
PROC: 0DB58ZX Excision of Esophagus, Via Natural or Artificial Opening Endoscopic, Diagnostic (ICD-10-PCS; principal; 2016-09-10 12:30)
PROC: 0DB68ZX Excision of Stomach, Via Natural or Artificial Opening Endoscopic, Diagnostic (ICD-10-PCS; 2016-09-10 12:30)
DX: R59.1 Generalized enlarged lymph nodes (principal); B37.81 Candidal esophagitis; C46.7 Kaposi's sarcoma of other sites; I11.0 Hypertensive heart disease with heart failure; I50.9 Heart failure, unspecified; D64.9 Anemia, unspecified; D12.3 Benign neoplasm of transverse colon; Z95.0 Presence of cardiac pacemaker; Z96.653 Presence of artificial knee joint, bilateral; N40.1 Benign prostatic hyperplasia with lower urinary tract symptoms; R33.8 Other retention of urine; E03.9 Hypothyroidism, unspecified; J45.909 Unspecified asthma, uncomplicated; R32 Unspecified urinary incontinence; J42 Unspecified chronic bronchitis; K29.70 Gastritis, unspecified, without bleeding; K57.30 Diverticulosis of large intestine without perforation or abscess without bleeding; K64.4 Residual hemorrhoidal skin tags; K40.90 Unilateral inguinal hernia, without obstruction or gangrene, not specified as recurrent
CPT/HCPCS: 36415; 71010; 71250; 74176; 80048; 80053; 81003; 82105; 82378; 82784; 82962; 83615; 83690; 83880; 84132; 84153; 84154; 84155; 84165; 84443; 85025; 85610; 86301; 86320; 86360; 88305; 88312; 88313; 93005; 96365; 96375; G0378; J1650; J2270; J2370; J2405; J2543; J3480; J7040

== ENCOUNTER 2017-08-24 19:49 | Emergency (ER) | END 2017-08-25 10:55 | disposition home or self-care (01) ==

== ENCOUNTER 2017-11-15 00:37 | Observation (INO) | END 2017-11-16 17:05 | disposition home or self-care (01) ==

== ENCOUNTER 2018-02-05 10:16 | Emergency (ER) | END 2018-02-05 16:05 | disposition home or self-care (01) ==

== ENCOUNTER 2018-02-18 08:32 | Day surgery (SDC) | END 2018-02-18 11:25 | disposition home or self-care (01) ==

== ENCOUNTER 2018-03-22 04:59 | Inpatient (IN) | END 2018-03-24 19:00 | disposition home or self-care (01) | DRG 871 ==

== ENCOUNTER 2018-06-21 10:01 | Emergency (ER) | payer MEDICARE, OTHER ==
[~2018-06-21] VITALS: Wt 74.2 kg
[~2018-06-21 10:01] MED LIST changes: -ALBU8.5H3 INH; -ALBU90AE INHALATION; -AMIO200T2 PO; +AMIO200T4 PO; -ASPI-699 PO; +ATRO INHALATION; +AZEL6DRO2 BOTH EYES; -AZIT250T94 PO; -CARV3.1260 PO; -DOCU250C58 PO; -FER325 PO; +FLUT1AER INHALATION; +HYDR-3029 PO; +HYDR12.58 PO; -IBUP-1542 PO; +ICOS0.5C PO; -ICOS1CAP PO; +KEN1O TOP; +LEVO100T8 PO; -LEVO100T87 PO; +LINA5TAB PO; +METF500T PO; +METO-335 PO; -OLME5TAB4 PO; -OMEG1CAP2 PO; -PRED20TA PO; -SPIR25TA PO; +TAMS-14 PO; -TERA2CAP3 PO
[2018-06-21] MEDS ORDERED: ALBUTEROL 0.083% (NEB) 2.5 MG/3 ML AMP INH STA (10:23)
[2018-06-21] MEDS ORDERED: LEVO750T25 PO (11:42)
--- NOTE | 2018-06-21 11:45 | ERD ---
ER Documentation Chief Complaint Chief Complaint CHEST PAIN WITH CONGESTION AND COUGH X 4 DAYS HPI 87-year-old male presents the emergency department complaining of cough and congestion for the last 4 days. Patient states he had a bronchitis or a pneumonia approximately 2 weeks ago that he got better. He does not describe any significant treatment that he received at that time. Over the last 4 days he reports a cough and congestion. He reports no fevers, chills. He reports sputum production with no hemoptysis. He has an occasional pleuritic type chest discomfort, but no exertional or anginal type chest discomfort. He reports no night sweats or weight loss. ROS All systems reviewed and are negative except as per history of present illness. Medications Home Meds Active Scripts Levofloxacin* (Levaquin*) 750 Mg Tablet, 750 MG PO DAILY for 5 Days, TAB Prov:VENKATA LOWRY 06/21/18 Metformin Hcl (Glucophage) 500 Mg Tablet, 500 MG PO PC BREAKFAST DINNER for 30 Days, #60 TAB 3 Refills Prov:OMKAR KUMAR MD 11/16/17 Linagliptin (TRADJENTA) 5 Mg Tablet, 5 MG PO DAILY for 30 Days, #30 TAB 3 Refills Prov:OMKAR KUMAR MD 11/16/17 Tamsulosin Hcl* (Flomax*) 0.4 Mg Cap.er.24h, 0.4 MG PO QHS for 30 Days, #30 CAP Prov:ALEJANDRO MENDEZ MD 08/25/17 Metoprolol Succinate* (Toprol XL*) 25 Mg Tab.sr.24h, 25 MG PO QAM for 30 Days, #30 TAB 4 Refills To replace carvedilol Prov:ALEJANDRO MENDEZ MD 08/25/17 Reported Medications Triamcinolone Acetonide* (Kenalog*) 0.1%-15GM Oint, 1 APPLIC TOP BID, #1 EA 03/23/18 Hydroxyzine Hcl* (Hydroxyzine Hcl*) 10 Mg Tablet, 10 MG PO QHS PRN for ITCHING, #30 TAB 03/23/18 Fluticasone-Vilanterol (Breo Ellipta Inhaler) 100-25 Mcg/Actuation Aer.pow.ba, 1 PUFF INHALATION DAILY, #1 INHALER 02/18/18 Icosapent Ethyl (Vascepa) 0.5 Gm Capsule, 0.5 GM PO, CAP 02/18/18 Azelastine Hcl* (Azelastine Hcl*) 0.05%-6 Ml Opht Drops, 1 DROP BOTH EYES BID, #1 EA 02/05/18 Ipratropium [place]* (Atrovent HFA*) 12.9 Gm Aer.w.adap, 2 PUFF INHALATION Q4H PRN for WHEEZING AND SOB, #1 INHALER 02/05/18 Amiodarone Hcl* (Amiodarone Hcl*) 200 Mg Tablet, 200 MG PO DAILY, #30 TAB 02/05/18 Hydrochlorothiazide* (Hydrochlorothiazide*) 12.5 Mg Tablet, 12.5 MG PO DAILY, #30 TAB 11/15/17 Levothyroxine Sodium* (Levothyroxine Sodium*) 100 Mcg Tablet, 100 MCG PO BEFORE BREAKFAST, #30 TAB 06/17/16 Apixaban* (Eliquis*) 2.5 Mg Tablet, 2.5 MG PO BID, TAB 06/17/16 Atorvastatin Calcium (Atorvastatin Calcium) 10 Mg Tablet, 10 MG PO QHS, #30 TAB 06/17/16 Pantoprazole* (Pantoprazole*) 40 Mg Tablet.dr, 40 MG PO DAILY, TAB 06/17/16 Montelukast Sodium* (Montelukast Sodium*) 10 Mg Tablet, 10 MG PO QHS, #30 TAB 06/17/16 Allergies Allergies: Coded Allergies: No Known Drug Allergy (Verified Allergy, Unknown, 06/21/18) PMhx/Soc History of Surgery: Yes (BILATERAL KNEE SX, HERNIA REPAIR, PACEMAKER) Anesthesia Reaction: No Hx Neurological Disorder: No Hx Respiratory Disorders: Yes (ASTHMA) Hx Cardiac Disorders: Yes (HTN) Hx Psychiatric Problems: No Hx Miscellaneous Medical Probl: No Hx Alcohol Use: Yes (OCASSIONAL) Hx Substance Use: No Hx Tobacco Use: No Smoking Status: Never smoker FmHx Supportive son at bedside Physical Exam Vitals Vital Signs Date Temp Pulse Resp B/P (MAP) Pulse Ox O2 O2 Flow FiO2 Time Delivery Rate 06/21/18 Nasal 2 11:38 Cannula 06/21/18 Nasal 2.0 11:38 Cannula 06/21/18 86 20 97 21 10:55 06/21/18 97.3 77 18 119/60 98 10:51 (79) Physical Exam GENERAL: Elderly male in no distress HEENT: Pupils equal, round, and reactive to light. EOMI. There is no scleral icterus. NECK: C-spine is soft and supple, there is no meningismus. There is no cervical lymphadenopathy. LUNGS: Clear to auscultation bilaterally. There are no rales, wheezes or rhonchi. HEART: Regular rate and rhythm, no murmurs, clicks, rubs or gallops. ABDOMEN: Soft, non-tender, non-distended. There are bowel sounds in all four quadrants. No rebound or guarding. EXTREMITIES: There is no peripheral cyanosis or edema. No focal swelling or erythema. NEURO: The patient moves all four extremities with 5/5 strength. Cranial nerves II - XII are intact. Normal gait. Alert and oriented SKIN: There is no apparent rash or petechiae. HEME/LYMPHATIC: There is no evidence of excessive bruising or lymphedema. PSYCHIATRIC: The patient does not appear anxious or depressed. Result Diagram: 06/21/18 1044 06/21/18 1044 Results 24 hrs Laboratory Tests Test 06/21/18 10:44 06/21/18 10:47 White Blood Count 8.9 10^3/ul Red Blood Count 4.29 10^6/ul Hemoglobin 12.8 g/dl Hematocrit 38.8 % Mean Corpuscular Volume 90.4 fl Mean Corpuscular Hemoglobin 29.8 pg Mean Corpuscular Hemoglobin Concent 33.0 g/dl Red Cell Distribution Width 13.8 % Platelet Count 219 10^3/UL Mean Platelet Volume 8.0 fl Immature Granulocytes % 0.800 % Neutrophils % 65.2 % Lymphocytes % 10.6 % Monocytes % 12.4 % Eosinophils % 10.7 % Basophils % 0.3 % Nucleated Red Blood Cells % 0.0 /100WBC Immature Granulocytes # 0.070 10^3/ul Neutrophils # 5.8 10^3/ul Lymphocytes # 0.9 10^3/ul Monocytes # 1.1 10^3/ul Eosinophils # 1.0 10^3/ul Basophils # 0.0 10^3/ul Nucleated Red Blood Cells # 0.0 10^3/ul Prothrombin Time 13.9 Sec Prothrombin Time Ratio 1.1 INR International Normalized Ratio 1.06 Activated Partial Thromboplast Time 37.0 Sec Sodium Level 137 mmol/L Potassium Level 4.3 mmol/L Chloride Level 97 mmol/L Carbon Dioxide Level 32 mmol/L Anion Gap 8 Blood Urea Nitrogen 31 mg/dl Creatinine 0.87 mg/dl Est Glomerular Filtrat Rate mL/min mL/min Glucose Level 108 mg/dl Calcium Level 10.1 mg/dl Total Bilirubin 0.3 mg/dl Direct Bilirubin 0.00 mg/dl Indirect Bilirubin 0.3 mg/dl Aspartate Amino Transf (AST/SGOT) 21 IU/L Alanine Aminotransferase (ALT/SGPT) 20 IU/L Alkaline Phosphatase 106 IU/L Troponin I < 0.012 ng/ml Total Protein 9.2 g/dl Albumin 4.7 g/dl Globulin 4.50 g/dl Albumin/Globulin Ratio 1.04 POC Venous Lactate 1.3 mmol/L Current Medications Medications Dose Sig/Shila Start Time Status Last (Trade) Ordered Route PRN Stop Time Admin Dose Reason Admin Albuterol 5 mg ONCE STAT 06/21/18 DC 06/21/18 (Proventil INH 10:23 06/21/18 10:55 0.083% (Neb)) 10:25 Procedures/MDM Patient was taken to a room, seen and evaluated. Comfort measures were initiated. Diagnostic tests were ordered and reviewed. 3 LEAD RHYTHM STRIP: Atrial paced EK lead EKG reviewed by myself: Atrial pacemaker at 70 bpm Normal [place] and intervals No ST elevation, depression, or T wave inversion Impression: Normal EKG other than the pacemaker RADIOLOGY: Reviewed with the radiologist CONSULTATION: Dr. Mendez was notified for outpatient follow up.. REEVALUATION: 1144: Diagnostic tests were appreciated and discussed with the patient. He appeared to be clinically well and appropriate for outpatient care. MEDICAL DECISION MAKIN-year-old male with an underlying history of lung disease including COPD presents to the emergency department with chest congestion. His evaluation focused on cardiac and pulmonary concerns. At this time, he shows no evidence of ischemia based on his EKG and troponin and his symptoms seem to be pulmonary related. He has no evidence of high risk pneumonia with a normal white count and a chest x-ray which does not demonstrate significant pneumonia. After supportive care with albuterol, he feels better and seems appropriate for outpatient care. He has good outpatient follow-up and understands my concerns for outpatient follow-up. Departure Diagnosis: Primary Impression: Chest congestion Condition: Stable Patient Instructions: Acute Bronchitis Referrals: ALEJANDRO MENDEZ MD (PCP) Additional Instructions: Consulte a sesay mdico para el seguimiento segn lo discutido. Lleve sonali copia de los resultados de sesay prueba, si corresponde, a esta visita de seguimiento. Consulte a sesay mdico o regrese aqu si shannon sntomas no mejoran shaun se esperaba. En cualquier momento, regrese al departamento de emergencias por cualquier cambio o empeoramiento en shannon sntomas. VENKATA LOWRY Jun 21, 2018 11:45
[2018-06-21 11:46] VITALS: BP 122/68; PULSE 75; RESP 18
== END 2018-06-21 11:46 | disposition home or self-care (01) ==
LOC: E/R 10:01
DX: R09.89 Other specified symptoms and signs involving the circulatory and respiratory systems (principal); I10 Essential (primary) hypertension; J45.909 Unspecified asthma, uncomplicated; Z79.84 Long term (current) use of oral hypoglycemic drugs; Z95.0 Presence of cardiac pacemaker
CPT/HCPCS: 36415; 71045; 80053; 83605; 84484; 85025; 85610; 85730; 87040; 93005; 94664

== ENCOUNTER 2018-11-01 21:20 | Emergency (ER) | payer MEDICARE, OTHER ==
[~2018-11-01] VITALS: Ht 162.6 cm; Wt 76.1 kg
[~2018-11-01 21:20] MED LIST changes: +LEVO750T25 PO
[2018-11-01 22:20] VITALS: Ht 162.6 cm; Wt 76.1 kg
[2018-11-02] MEDS ORDERED: SOD CHLORIDE 0.9% 500 ML IV STA
[2018-11-02] MEDS ORDERED: morphine 4 MG/ML VIAL IV STA
[2018-11-02] MEDS ORDERED: ONDANSETRON 4 MG INJ IV STA
--- NOTE | 2018-11-02 01:55 | ERD ---
ER Documentation Chief Complaint Chief Complaint abd pain x 3 days with n/v; denies constipation HPI This is an 87-year-old male with abdominal pain for 3 days with nausea vomiting. She denies fevers or chills. Pain is mild to moderate intensity no exacerbating relieving factors. No other current complaints. No sick contacts. No recent travel. Vomiting nonbilious nonbloody. One episode today. Abdominal pain for 3 to 4 days ROS All systems reviewed and are negative except as per history of present illness. Medications Home Meds Active Scripts Levofloxacin* (Levaquin*) 750 Mg Tablet, 750 MG PO DAILY for 5 Days, TAB Prov:VENKATA LOWRY 06/21/18 Metformin Hcl (Glucophage) 500 Mg Tablet, 500 MG PO PC BREAKFAST DINNER for 30 Days, #60 TAB 3 Refills Prov:OMKAR KUMAR MD 11/16/17 Linagliptin (TRADJENTA) 5 Mg Tablet, 5 MG PO DAILY for 30 Days, #30 TAB 3 Refills Prov:OMKAR KUMAR MD 11/16/17 Tamsulosin Hcl* (Flomax*) 0.4 Mg Cap.er.24h, 0.4 MG PO QHS for 30 Days, #30 CAP Prov:ALEJANDRO BEAVER MD 08/25/17 Metoprolol Succinate* (Toprol XL*) 25 Mg Tab.sr.24h, 25 MG PO QAM for 30 Days, #30 TAB 4 Refills To replace carvedilol Prov:ALEJANDRO BEAVER MD 08/25/17 Reported Medications Triamcinolone Acetonide* (Kenalog*) 0.1%-15GM Oint, 1 APPLIC TOP BID, #1 EA 03/23/18 Hydroxyzine Hcl* (Hydroxyzine Hcl*) 10 Mg Tablet, 10 MG PO QHS PRN for ITCHING, #30 TAB 03/23/18 Fluticasone-Vilanterol (Breo Ellipta Inhaler) 100-25 Mcg/Actuation Aer.pow.ba, 1 PUFF INHALATION DAILY, #1 INHALER 02/18/18 Icosapent Ethyl (Vascepa) 0.5 Gm Capsule, 0.5 GM PO, CAP 02/18/18 Azelastine Hcl* (Azelastine Hcl*) 0.05%-6 Ml Opht Drops, 1 DROP BOTH EYES BID, #1 EA 02/05/18 Ipratropium [place]* (Atrovent HFA*) 12.9 Gm Aer.w.adap, 2 PUFF INHALATION Q4H PRN for WHEEZING AND SOB, #1 INHALER 02/05/18 Amiodarone Hcl* (Amiodarone Hcl*) 200 Mg Tablet, 200 MG PO DAILY, #30 TAB 02/05/18 Hydrochlorothiazide* (Hydrochlorothiazide*) 12.5 Mg Tablet, 12.5 MG PO DAILY, #30 TAB 11/15/17 Levothyroxine Sodium* (Levothyroxine Sodium*) 100 Mcg Tablet, 100 MCG PO BEFORE BREAKFAST, #30 TAB 06/17/16 Apixaban* (Eliquis*) 2.5 Mg Tablet, 2.5 MG PO BID, TAB 06/17/16 Atorvastatin Calcium (Atorvastatin Calcium) 10 Mg Tablet, 10 MG PO QHS, #30 TAB 06/17/16 Pantoprazole* (Pantoprazole*) 40 Mg Tablet.dr, 40 MG PO DAILY, TAB 06/17/16 Montelukast Sodium* (Montelukast Sodium*) 10 Mg Tablet, 10 MG PO QHS, #30 TAB 06/17/16 Allergies Allergies: Coded Allergies: No Known Drug Allergy (Verified Allergy, Unknown, 06/21/18) PMhx/Soc History of Surgery: Yes (appendectomy, pacemaker) Anesthesia Reaction: No Hx Neurological Disorder: No Hx Respiratory Disorders: Yes (ASTHMA) Hx Cardiac Disorders: Yes (htn) Hx Psychiatric Problems: No Hx Miscellaneous Medical Probl: No Hx Alcohol Use: No Hx Substance Use: No Hx Tobacco Use: No Smoking Status: Never smoker Physical Exam Vitals Vital Signs Date Temp Pulse Resp B/P (MAP) Pulse Ox O2 O2 Flow FiO2 Time Delivery Rate 11/02/18 94 16 110/63 97 Room Air 00:23 (79) 11/01/18 98.4 101 20 123/57 96 22:20 (79) Physical Exam Const: No acute distress Head: Atraumatic Eyes: Normal Conjunctiva ENT: Normal External Ears, Nose and Mouth. Neck: Full range of motion. No meningismus. Resp: Clear to auscultation bilaterally Cardio: Regular rate and rhythm, no murmurs Abd: Soft, non tender, non distended. Normal bowel sounds Skin: No petechiae or rashes Back: No midline or flank tenderness Ext: No cyanosis, or edema Neur: Awake and alert Psych: Normal Mood and Affect Result Diagram: 11/02/187 11/02/1816 Results 24 hrs Laboratory Tests Test 11/02/18 00:17 White Blood Count 7.4 10^3/ul Red Blood Count 4.26 10^6/ul Hemoglobin 12.8 g/dl Hematocrit 37.7 % Mean Corpuscular Volume 88.5 fl Mean Corpuscular Hemoglobin 30.0 pg Mean Corpuscular Hemoglobin Concent 34.0 g/dl Red Cell Distribution Width 12.9 % Platelet Count 203 10^3/UL Mean Platelet Volume 8.4 fl Immature Granulocytes % 0.700 % Neutrophils % 62.7 % Lymphocytes % 12.1 % Monocytes % 16.6 % Eosinophils % 7.2 % Basophils % 0.7 % Nucleated Red Blood Cells % 0.0 /100WBC Immature Granulocytes # 0.050 10^3/ul Neutrophils # 4.6 10^3/ul Lymphocytes # 0.9 10^3/ul Monocytes # 1.2 10^3/ul Eosinophils # 0.5 10^3/ul Basophils # 0.1 10^3/ul Nucleated Red Blood Cells # 0.0 10^3/ul Urine Color YELLOW Urine Clarity CLEAR Urine pH 5.0 Urine Specific [place] 1.020 Urine Ketones NEGATIVE mg/dL Urine Nitrite NEGATIVE mg/dL Urine Bilirubin NEGATIVE mg/dL Urine Urobilinogen NEGATIVE mg/dL Urine Leukocyte Esterase NEGATIVE Susie/ul Urine Hemoglobin NEGATIVE mg/dL Urine Glucose 3+ mg/dL Urine Total Protein NEGATIVE mg/dl Sodium Level 134 mmol/L Potassium Level 4.1 mmol/L Chloride Level 96 mmol/L Carbon Dioxide Level 30 mmol/L Anion Gap 8 Blood Urea Nitrogen 16 mg/dl Creatinine 0.65 mg/dl Est Glomerular Filtrat Rate mL/min mL/min Glucose Level 312 mg/dl Calcium Level 8.9 mg/dl Total Bilirubin 0.5 mg/dl Direct Bilirubin 0.00 mg/dl Indirect Bilirubin 0.5 mg/dl Aspartate Amino Transf (AST/SGOT) 16 IU/L Alanine Aminotransferase (ALT/SGPT) 24 IU/L Alkaline Phosphatase 132 IU/L Troponin I < 0.012 ng/ml Total Protein 7.0 g/dl Albumin 3.7 g/dl Globulin 3.30 g/dl Albumin/Globulin Ratio 1.12 Lipase 21 U/L Current Medications Medications Dose Sig/Shila Start Time Status Last (Trade) Ordered Route PRN Stop Time Admin Dose Reason Admin Sodium 500 ml @ Q1H STAT 11/02/18 DC 11/02/18 Chloride 500 mls/hr IV 00:00 00:17 11/02/18 00:59 Morphine 4 mg ONCE STAT 11/02/18 DC 11/02/18 Sulfate IV 00:00 00:16 (morphine) 11/02/18 00:03 Ondansetron 4 mg ONCE STAT 11/02/18 DC 11/02/18 HCl (Zofran IV 00:00 00:16 Inj) 11/02/18 00:03 Procedures/MDM EKG: Rate/Rhythm: [Normal Sinus Rhythm] QRS, ST, T-waves: [No changes consistent w/ acute ischemia] Impression: [No evidence of ischemia or arrhythmia] Chest X-ray 1V Interpreted by me: Soft Tissue: No acute abnormalities Bones: No acute abnormalities Mediastinum/Cardiac Silhouette/Lungs: [No acute abnormalities] Medical decision making: Patient's gastrointestinal symptoms have stabilized while in the department. No evidence of severe dehydration, sepsis, or surgical abdomen. Extensive discussion with family and patient that occult disease cannot be ruled out. 8 hour recheck for repeat abdominal exam is planned. Symptomology consistent with constipation. Patient will be discharged home with a short course of Colace and Bentyl. He does have evidence of constipation on CT scan. He has been asked to follow-up with his primary care physician and return here in 8 hours for serial abdominal exams. Departure Diagnosis: Primary Impression: Abdominal pain Abdominal location: unspecified location Qualified Codes: R10.9 - Unspecified abdominal pain Condition: Stable JERRY SPEARSAmy November 02, 2018 01:55
[2018-11-02] MEDS ORDERED: DICY10CA40 PO (01:59)
[2018-11-02] MEDS ORDERED: DOCU-144 PO (01:59)
[2018-11-02 02:07] VITALS: BP 116/68; PULSE 78; RESP 16
== END 2018-11-02 02:12 | disposition home or self-care (01) ==
LOC: E/R 21:20
DX: R10.9 Unspecified abdominal pain (principal); J45.909 Unspecified asthma, uncomplicated; I10 Essential (primary) hypertension; Z79.84 Long term (current) use of oral hypoglycemic drugs; Z79.01 Long term (current) use of anticoagulants
CPT/HCPCS: 36415; 71045; 74176; 80053; 81003; 83690; 84484; 85025; 96374; 96375; 99285; J2270; J2405; J7040

== ENCOUNTER 2018-11-18 22:02 | Inpatient (IN) | payer MEDICARE, MEDICAID ==
[~2018-11-18] VITALS: Ht 157.5 cm; Wt 70.3 kg
[~2018-11-18 22:02] MED LIST changes: +DICY10CA40 PO; +DOCU-144 PO
[2018-11-19] MEDS ORDERED: morphine 4 MG/ML VIAL IV STA (00:15)
[2018-11-19] MEDS ORDERED: ONDANSETRON 4 MG INJ IV STA (00:15)
[2018-11-19] MEDS ORDERED: ONDANSETRON 4 MG INJ IV PRN (01:30)
[2018-11-19] MEDS ORDERED: ACETAMINOPHEN 325 MG TAB PO PRN ×2 (01:30→13:30)
--- NOTE | 2018-11-19 01:46 | ERD ---
ER Documentation Chief Complaint Chief Complaint almost syncopal episode; weakness; abd pain; denies hitting head HPI This 88-year-old male with a syncopal episode today and had a near syncopal episode yesterday per family. He has had chronic abdominal pain. Denies any focal neurologic complaints, however he is felt weak and dizzy over the past few days. No fevers or chills. No nausea vomiting. No chest pain. No sick contac ts. No recent travel. ROS All systems reviewed and are negative except as per history of present illness. Medications Home Meds Active Scripts Docusate Sodium* (Colace*) 100 Mg Capsule, 100 MG PO TID, #30 CAP Prov:JERRY SPEARS 11/02/18 Dicyclomine HCl (Dicyclomine HCl) 10 Mg Capsule, 10 MG PO TID PRN for ABDOMINAL CRAMPING, #20 CAP Prov:JERRY SPEARS 11/02/18 Levofloxacin* (Levaquin*) 750 Mg Tablet, 750 MG PO DAILY for 5 Days, TAB Prov:VENKATA LOWRY 06/21/18 Metformin Hcl (Glucophage) 500 Mg Tablet, 500 MG PO PC BREAKFAST DINNER for 30 Days, #60 TAB 3 Refills Prov:OMKAR KUMAR MD 11/16/17 Linagliptin (TRADJENTA) 5 Mg Tablet, 5 MG PO DAILY for 30 Days, #30 TAB 3 Refills Prov:OMKAR KUMAR MD 11/16/17 Tamsulosin Hcl* (Flomax*) 0.4 Mg Cap.er.24h, 0.4 MG PO QHS for 30 Days, #30 CAP Prov:ALEJANDRO BEAVER MD 08/25/17 Metoprolol Succinate* (Toprol XL*) 25 Mg Tab.sr.24h, 25 MG PO QAM for 30 Days, #30 TAB 4 Refills To replace carvedilol Prov:ALEJANDRO BEAVER MD 08/25/17 Reported Medications Triamcinolone Acetonide* (Kenalog*) 0.1%-15GM Oint, 1 APPLIC TOP BID, #1 EA 03/23/18 Hydroxyzine Hcl* (Hydroxyzine Hcl*) 10 Mg Tablet, 10 MG PO QHS PRN for ITCHING, #30 TAB 03/23/18 Fluticasone-Vilanterol (Breo Ellipta Inhaler) 100-25 Mcg/Actuation Aer.pow.ba, 1 PUFF INHALATION DAILY, #1 INHALER 02/18/18 Icosapent Ethyl (Vascepa) 0.5 Gm Capsule, 0.5 GM PO, CAP 02/18/18 Azelastine Hcl* (Azelastine Hcl*) 0.05%-6 Ml Opht Drops, 1 DROP BOTH EYES BID, #1 EA 02/05/18 Ipratropium [place]* (Atrovent HFA*) 12.9 Gm Aer.w.adap, 2 PUFF INHALATION Q4H PRN for WHEEZING AND SOB, #1 INHALER 02/05/18 Amiodarone Hcl* (Amiodarone Hcl*) 200 Mg Tablet, 200 MG PO DAILY, #30 TAB 02/05/18 Hydrochlorothiazide* (Hydrochlorothiazide*) 12.5 Mg Tablet, 12.5 MG PO DAILY, #30 TAB 11/15/17 Levothyroxine Sodium* (Levothyroxine Sodium*) 100 Mcg Tablet, 100 MCG PO BEFORE BREAKFAST, #30 TAB 06/17/16 Apixaban* (Eliquis*) 2.5 Mg Tablet, 2.5 MG PO BID, TAB 06/17/16 Atorvastatin Calcium (Atorvastatin Calcium) 10 Mg Tablet, 10 MG PO QHS, #30 TAB 06/17/16 Pantoprazole* (Pantoprazole*) 40 Mg Tablet.dr, 40 MG PO DAILY, TAB 06/17/16 Montelukast Sodium* (Montelukast Sodium*) 10 Mg Tablet, 10 MG PO QHS, #30 TAB 06/17/16 Allergies Allergies: Coded Allergies: No Known Drug Allergy (Verified Allergy, Unknown, 06/21/18) PMhx/Soc History of Surgery: Yes (appendectomy, pacemaker) Anesthesia Reaction: No Hx Neurological Disorder: No Hx Respiratory Disorders: Yes (ASTHMA) Hx Cardiac Disorders: Yes (htn) Hx Psychiatric Problems: No Hx Miscellaneous Medical Probl: No Hx Alcohol Use: No Hx Substance Use: No Hx Tobacco Use: No Smoking Status: Never smoker Physical Exam Vitals Vital Signs Date Temp Pulse Resp B/P (MAP) Pulse Ox O2 O2 Flow FiO2 Time Delivery Rate 11/18/18 98.0 98 20 96/55 (69) 99 22:12 Physical Exam Const: No acute distress Head: Atraumatic Eyes: Normal Conjunctiva ENT: Normal External Ears, Nose and Mouth. Neck: Full range of motion. No meningismus. Resp: Clear to auscultation bilaterally Cardio: Regular rate and rhythm, no murmurs Abd: Soft, non tender, non distended. Normal bowel sounds Skin: No petechiae or rashes Back: No midline or flank tenderness Ext: No cyanosis, or edema Neur: Awake and alert Psych: Normal Mood and Affect Result Diagram: 11/18/18231911/18/182319 Results 24 hrs Laboratory Tests Test 11/18/18 23:20 White Blood Count 14.2 10^3/ul Red Blood Count 3.52 10^6/ul Hemoglobin 10.2 g/dl Hematocrit 30.8 % Mean Corpuscular Volume 87.5 fl Mean Corpuscular Hemoglobin 29.0 pg Mean Corpuscular Hemoglobin Concent 33.1 g/dl Red Cell Distribution Width 13.2 % Platelet Count 224 10^3/UL Mean Platelet Volume 8.0 fl Immature Granulocytes % 0.400 % Neutrophils % 77.7 % Lymphocytes % 6.6 % Monocytes % 9.0 % Eosinophils % 5.9 % Basophils % 0.4 % Nucleated Red Blood Cells % 0.0 /100WBC Immature Granulocytes # 0.060 10^3/ul Neutrophils # 11.0 10^3/ul Lymphocytes # 0.9 10^3/ul Monocytes # 1.3 10^3/ul Eosinophils # 0.8 10^3/ul Basophils # 0.1 10^3/ul Nucleated Red Blood Cells # 0.0 10^3/ul Prothrombin Time 15.0 Sec Prothrombin Time Ratio 1.2 INR International Normalized Ratio 1.17 Activated Partial Thromboplast Time 34.3 Sec Sodium Level 130 mmol/L Potassium Level 5.5 mmol/L Chloride Level 95 mmol/L Carbon Dioxide Level 29 mmol/L Anion Gap 6 Blood Urea Nitrogen 24 mg/dl Creatinine 0.94 mg/dl Est Glomerular Filtrat Rate mL/min mL/min Glucose Level 229 mg/dl Calcium Level 8.8 mg/dl Troponin I < 0.012 ng/ml Current Medications Medications Dose Sig/Shila Start Time Status Last (Trade) Ordered Route PRN Stop Time Admin Dose Reason Admin Morphine 4 mg ONCE STAT 11/19/18 DC 11/19/18 Sulfate IV 00:15 11/19/18 00:28 (morphine) 00:16 Ondansetron 4 mg ONCE STAT 11/19/18 DC 11/19/18 HCl (Zofran IV 00:15 11/19/18 00:28 Inj) 00:16 Ondansetron 4 mg ER BRIDGE 11/19/18 HCl (Zofran PRN IV 01:30 11/20/18 Inj) NAUSEA/VOMITI 01:29 NG 650 mg ER BRIDGE 11/19/18 Acetaminophen PRN PO 01:30 11/20/18 (Tylenol .MILD PAIN 01:29 Tab) 1-3 OR TEMP Procedures/MDM EKG: Rate/Rhythm: [Normal Sinus Rhythm] QRS, ST, T-waves: [No changes consistent w/ acute ischemia] Impression: [No evidence of ischemia or arrhythmia] Chest X-ray 1V Interpreted by me: Soft Tissue: No acute abnormalities Bones: No acute abnormalities Mediastinum/Cardiac Silhouette/Lungs: [No acute abnormalities] Patient's syncopal symptoms are unstable at this time and require inpatient workup. No evidence of PE or dissection at this time but occult ischemia or fatal dysrhythmia cannot be ruled out. Patient admitted to Dr. Cedeno who is on- call for the patient's physician Departure Diagnosis: Primary Impression: Syncope Syncope type: unspecified Qualified Codes: R55 - Syncope and collapse Condition: Stable JERRY SPEARS Nov 19, 2018 01:46
[2018-11-19] MEDS ORDERED: DIPHENHYDRAMINE 50 MG INJ IV ONE (03:30)
[2018-11-19] MEDS ORDERED: GABA300C16 PO (04:04)
[2018-11-19] MEDS ORDERED: DOXE25CA2 PO (04:04)
[2018-11-19] MEDS ORDERED: FURO20TA3 PO (04:04)
[2018-11-19] MEDS ORDERED: LACT1CAP49 PO (04:07)
[2018-11-19] MEDS ORDERED: SAW/1TAB2 PO (04:07)
[2018-11-19] MEDS ORDERED: ICOS1CAP PO (04:12)
[2018-11-19] MEDS ORDERED: HYDROCORTISONE 100 MG INJ IV ONE (09:00)
[2018-11-19] MEDS ORDERED: MAGNESIUM CITRATE 300 ML BTL PO ONE (13:30)
[2018-11-19] MEDS ORDERED: IPRATROPIUM (HFA) 12.9 GM INHALER INH PRN (13:30)
[2018-11-19] MEDS ORDERED: DOCUSATE SODIUM 100 MG CAP PO PRN (13:30)
[2018-11-19] MEDS ORDERED: hydrOXYzine HCL 10 MG TAB PO PRN (13:30)
[2018-11-19] MEDS ORDERED: NACL 0.9% 3 ML SYG IV SCH (13:30)
[2018-11-19] MEDS ORDERED: THIAMINE 200 MG INJ IM ONE (13:30)
[2018-11-19] MEDS ORDERED: HYDROCODONE/APAP (5/325) TAB PO PRN (13:30)
[2018-11-19] MEDS ORDERED: LORAZEPAM 0.5 MG TAB PO PRN (13:30)
[2018-11-19] MEDS ORDERED: ONDANSETRON 4 MG TAB PO PRN (13:30)
[2018-11-19] MEDS ORDERED: LACTATED RINGER'S 500 ML IV ONE (13:30)
[2018-11-19] MEDS ORDERED: ZOLPIDEM 5 MG TAB PO PRN (13:30)
[2018-11-19] MEDS ORDERED: NA PHOSPHATE/BIPHOS 133 ML ENEMA PR ONE (13:30)
--- NOTE | 2018-11-19 13:34 | HP ---
Date/Time of Note Date/Time of Note DATE: 11/19/18 TIME: 13:24 Assessment/Plan VTE Prophylaxis SCD applied (from Nsg): Yes SCD contraindicated: patient refusal Pharmacological prophylaxis: apixaban Lines/Catheters IV Catheter Type (from Nrs): Saline Lock Assessment/Plan Problems: (1) Syncope Status: Acute Comment: Has history of heart disease I will notify cardiology of the admission. From the patient's perspective his chief complaint is actually his GI tract issues. We will continue his syncope evaluation but also have gastroenterology check in. Qualifiers: Syncope type: unspecified Qualified Codes: R55 - Syncope and collapse (2) Asthma-COPD overlap syndrome Status: Chronic Comment: Stable at this time, continue treatment (3) BPH NOS w ur obs/LUTS Status: Chronic Comment: Noted. (4) Systolic CHF with reduced left ventricular function, NYHA class 2 Status: Chronic Comment: On appropriate treatment at this time (5) Mitral regurgitation Status: Chronic Comment: Noted. Qualifiers: Cardiac valve disease etiology: nonrheumatic Qualified Codes: I34.0 - Nonrheumatic mitral (valve) insufficiency (6) Essential hypertension Status: Chronic Comment: Adequate control (7) Mixed hyperlipidemia Status: Chronic Comment: Maintain medications (8) Status post biventricular pacemaker Onset Date: ~ 08/2008 Status: Chronic Comment: Noted. (9) Atrial fibrillation, chronic Status: Chronic Comment: Controlled at this time. (10) Hypothyroidism (acquired) Status: Chronic Comment: On replacement therapy Result Diagram: 11/18/18 2320 11/18/18 2320 Results 24hrs Laboratory Tests Test 11/18/18 23:20 11/19/18 08:45 11/19/18 10:21 White Blood Count 14.2 #H Red Blood Count 3.52 L Hemoglobin 10.2 #L Hematocrit 30.8 L Mean Corpuscular Volume 87.5 Mean Corpuscular Hemoglobin 29.0 Mean Corpuscular Hemoglobin Concent 33.1 Red Cell Distribution Width 13.2 Platelet Count 224 Mean Platelet Volume 8.0 Immature Granulocytes % 0.400 Neutrophils % 77.7 H Lymphocytes % 6.6 L Monocytes % 9.0 Eosinophils % 5.9 Basophils % 0.4 Nucleated Red Blood Cells % 0.0 Immature Granulocytes # 0.060 H Neutrophils # 11.0 H Lymphocytes # 0.9 Monocytes # 1.3 H Eosinophils # 0.8 H Basophils # 0.1 Nucleated Red Blood Cells # 0.0 Prothrombin Time 15.0 H Prothrombin Time Ratio 1.2 INR International Normalized Ratio 1.17 Activated Partial Thromboplast Time 34.3 Sodium Level 130 L Potassium Level 5.5 H Chloride Level 95 L Carbon Dioxide Level 29 Anion Gap 6 Blood Urea Nitrogen 24 H Creatinine 0.94 Est Glomerular Filtrat Rate mL/min Glucose Level 229 H Calcium Level 8.8 Troponin I < 0.012 Random Cortisol 15.7 Bedside Glucose 279 H CC: SHELLEY DONG MD; BORIS MARTIN MD ; HPI/ROS Admit Date/Time Admit Date/Time November 19, 2018 Hx of Present Illness This is the [facility] admission for this single 88-year-old Sly male who came in after near syncopal event. He had been in his usual state of health and having been having some issues with abdominal complaints. He actually been evaluated at this emergency room as well as by the author's agent Dr. Dong. His last CT scan from roughly 2 weeks ago had shown obstipation and he had been treated with some laxatives. He complains of some early satiety. He was at home and in the bathroom and he had a near syncopal event witnessed by his daughter. There was no noted seizure activity no incontinence. Please note he does have a history of alcohol consumption ROS Constitutional: no complaints (Eyes fevers chills or sweats) Eyes: no complaints ENT: no complaints Respiratory: no complaints Cardiovascular: no complaints Gastrointestinal: other (Early satiety and some mid upper gastric pain) Genitourinary: no complaints Musculoskeletal: no complaints Skin: no complaints Endocrine: no complaints PMH/Family/Social Past Medical History Medical History: cancer (History Kaposi's sarcoma non-HIV related), congestive heart failure (Systolic), GERD, high cholesterol, hypertension, hypothyroid, other (Asthma COPD overlap syndrome; successful atrial fibrillation; benign prostatic hypertrophy; right inguinal hernia) Medications Current Medications Ondansetron HCl (Zofran Inj) 4 mg ER BRIDGE PRN IV NAUSEA/VOMITING; Start 11/19/18 at 01:30; Stop 11/20/18 at 01:29 Acetaminophen (Tylenol Tab) 650 mg ER BRIDGE PRN PO .MILD PAIN 1-3 OR TEMP; Start 11/19/18 at 01:30; Stop 11/20/18 at 01:29 IV Flush (NS 3 ml) 3 ml PER PROTOCOL IV ; Start 11/19/18 at 13:30; Status UNV Lorazepam (Ativan) 0.5 mg Q8H PRN PO .ANXIETY; Start 11/19/18 at 13:30; Status UNV Ondansetron HCl (Zofran Tab) 4 mg Q6H PRN PO NAUSEA/VOMITING; Start 11/19/18 at 13:30; Status UNV Aspirin (Aspirin) 81 mg DAILY PO ; Start 11/20/18 at 09:00; Status UNV Acetaminophen (Tylenol Tab) 650 mg Q6H PRN PO .PAIN 1-3 OR TEMP; Start 11/19/18 at 13:30; Status UNV Acetaminophen/ Hydrocodone Bitart ([place] (5/325)) 1 tab Q6H PRN PO .PAIN 4-6; Start 11/19/18 at 13:30; Status UNV Zolpidem Tartrate (Ambien) 5 mg QHS PRN PO .INSOMNIA; Start 11/19/18 at 13:30; Status UNV Docusate Sodium (Colace) 100 mg Q12H PRN PO .CONSTIPATION; Start 11/19/18 at 13:30; Status UNV Famotidine (Pepcid) 20 mg Q12 PO ; Start 11/19/18 at 21:00; Status UNV Heparin Sodium (Porcine) (Heparin (5000 Units/1ml)) 5,000 unit Q12 SC ; Start 11/19/18 at 21:00; Status UNV Amiodarone HCl (Cordarone) 200 mg DAILY PO ; Start 11/19/18 at 13:30; Status UNV Apixaban (Eliquis) 2.5 mg BID PO ; Start 11/19/18 at 21:00; Status UNV Atorvastatin Calcium (Lipitor) 10 mg QHS PO ; Start 11/19/18 at 21:00; Status UNV Doxepin HCl (Sinequan) 25 mg QHS PO ; Start 11/19/18 at 21:00; Status UNV Furosemide (Lasix) 20 mg QAM PO ; Start 11/20/18 at 09:00; Status UNV Gabapentin (Neurontin) 300 mg TID PO ; Start 11/19/18 at 21:00; Status UNV Hydroxyzine HCl (Atarax) 10 mg QHS PRN PO ITCHING; Start 11/19/18 at 13:30; Status UNV Ipratropium [place] (Atrovent Hfa) 2 puff Q4H PRN INH WHEEZING AND SOB; Start 11/19/18 at 13:30; Status UNV Levothyroxine Sodium (Synthroid) 100 mcg BEFORE BREAKFAST PO ; Start 11/20/18 at 07:00; Status UNV Linagliptin (Tradjenta) 5 mg DAILY PO ; Start 11/20/18 at 09:00; Status UNV Metformin HCl (Glucophage) 500 mg PC BREAKFAST DINNER PO ; Start 11/19/18 at 19:00; Status UNV Metoprolol Succinate (Toprol Xl) 25 mg QAM PO ; Start 11/20/18 at 09:00; Status UNV Pantoprazole (Protonix Tab) 40 mg DAILY PO ; Start 11/20/18 at 09:00; Status UNV Tamsulosin HCl (Flomax) 0.4 mg QHS PO ; Start 11/19/18 at 21:00; Status UNV Miscellaneous Information 1 gm BID PO ; Start 11/19/18 at 21:00; Status UNV Miscellaneous Information 1 cap DAILY PO ; Start 11/20/18 at 09:00; Status UNV Miscellaneous Information 1 each DAILY PO ; Start 11/20/18 at 09:00; Status UNV Diagnostic Test (Pha) (Accu-Chek) 1 ea AC MEALS AND BEDTIME XX ; Start 11/19/18 at 17:30; Status UNV Magnesium Citrate (Citroma) 300 ml ONCE ONCE PO ; Start 11/19/18 at 13:30; Stop 11/19/18 at 13:31; Status UNV Sodium Biphosphate/ Sodium Phosphate (Fleet Enema) 133 ml ONCE ONCE [place] ; Start 11/19/18 at 13:30; Stop 11/19/18 at 13:31; Status UNV Lactated Ringer's 500 ml @ 500 mls/hr Q1H ONCE IV ; Start 11/19/18 at 13:30; Stop 11/19/18 at 14:29; Status UNV Miscellaneous Information (* Miscellaneous Pharmacy Order) Discontinue current oral sulfonylur... ONCE ONCE XX ; Start 11/19/18 at 13:30; Stop 11/19/18 at 13:31; Status UNV Diagnostic Test (Pha) (Accu-Chek) 1 XX ; Start 11/20/18 at 02:00; Status UNV Miscellaneous Information (* Miscellaneous Pharmacy Order) HYPOGLYCEMIA PROTOCOL w... ONCE ONCE XX ; Start 11/19/18 at 13:30; Stop 11/19/18 at 13:31; Status UNV Insulin Aspart (Novolog Insulin Pen) NOVOLOG *MODERATE* ALGORITHM WITH MEALS BEDTIME SC ; Start 11/19/18 at 18:00; Status UNV Miscellaneous Information (* Miscellaneous Pharmacy Order) Discontinue all previ... ONCE ONCE XX ; Start 11/19/18 at 13:30; Stop 11/19/18 at 13:31; Status UNV Coded Allergies: No Known Drug Allergy (Unverified Allergy, Unknown, 11/19/18) Past Surgical History Past Surgical Hx: appendectomy, other Family History Significant Family History: diabetes, hypertension, lung disease Social History Alcohol Use: other (Declines to quantify but I believe this is at least a daily) Smoking Status: Never smoker Drug Use: none Exam/Review of Systems Vital Signs Vitals Vital Signs Date Temp Pulse Resp B/P (MAP) Pulse Ox O2 O2 Flow FiO2 Time Delivery Rate 11/19/18 81 16 106/53 97 Room Air 11:58 (70) 11/19/18 98.0 09:58 Exam Constitutional: alert, oriented Head: normocephalic, atraumatic ENMT: nl external ears & nose, nl lips & teeth, nl nasal mucosa & septum Neck: supple, non-tender Respiratory: clear to auscultation, normal air movement Cardiovascular: regular rate and rhythm (These note regular rate and rhythm at this time, in sinus rhythm), nl pulses Gastrointestinal: soft, nl liver, spleen, non-tender Musculoskeletal: nl extremities to inspection, nl gait and stance Extremities: normal pulses Neurological: SUSPENDER CUTTER II-XII intact, nl mental status, nl speech ALEJANDRO BEAVER MD Nov 19, 2018 13:34
[2018-11-19] MEDS ORDERED: DEXTROSE 50% 50 ML SYRINGE IV PRN ×2 (14:00)
[2018-11-19] MEDS ORDERED: GLUCOSE GEL 15 GRAM TUBE BUCCAL PRN (14:00)
[2018-11-19] MEDS ORDERED: GLUCOSE GEL 15 GRAM TUBE PO PRN ×2 (14:00)
[2018-11-19] MEDS ORDERED: GLUCAGON 1 MG INJ IM PRN (14:00)
[2018-11-19] MEDS: INSULIN ASPART [NOVOLOG] 3 ML PEN SC SCH ×2 (14:14→22:53)
[2018-11-19] MEDS: AMIODARONE 200 MG TAB PO SCH (14:57)
--- NOTE | 2018-11-19 15:09 | RADRPT ---
Echocardiogram Report Patient Name: Rob YOUNG ID: [id number] : 1930 (88y 1m)Study Date: 11/19/2018 1:38:25 PM Gender: Nicholecession #: [id number] Tech: LE Location: [facility] Ref.Physician: ALEJANDRO BEAVER Height(Cm): BSA: Weight(Kg): Quality: GoodOrder Physician: ALEJANDRO BEAVER Account #: Procedures: Echocardiographic Report: Transthoracic echocardiogram with complete 2D, M-Mode, and doppler examination. Indications: Syncope. Measurements: 2D/M Mode Doppler Measurement Value Normal Range Measurement Value Normal Range LVIDd 2D 4.5 [ 4.2 - 5.8 ] cm AV Mean Cl 1.4 [ 70.0 - 90.0 ] cm/sec LVIDs 2D 3.0 [ 2.5 - 4.0 ] cm AV Mean PG 8.0 [ 2.0 - 4.0 ] mmHg LVPWd 2D 1.2 [ 0.6 - 1.0 ] cm AV Peak Cl 1.9 [ 100.0 - 170.0 ] cm/sec IVSd 2D 1.2 [ 0.6 - 1.0 ] cm AV Peak PG 14.0 [ 2.0 - 9.0 ] mmHg EDV 2D 91.5 [ 62.0 - 150.0 ] ml AV VTI 30.2 cm ESV 2D 36.4 [ 21.0 - 61.0 ] ml LVOT Peak Cl 1.1 [ 70.0 - 110.0 ] cm/sec EF 2D 60.2 [ 52.0 - 72.0 ] percent LVOT Peak PG 5.0 [ 2.0 - 6.0 ] mmHg LVOT Diam 2.0 [ 2.3 - 2.9 ] cm MV E Peak Cl 0.6 [ 60.0 - 130.0 ] cm/sec MV A Peak Cl 1.1 [ 100.0 - 120.0 ] cm/sec MV E/A 0.6 [ 0.8 - 1.5 ] ratio MV Decel Time 127 [ 104 - 258 ] msec Lat E` Cl 0.1 [ 10.0 - 15.0 ] cm/sec Lateral E/E` 9.8 [ 1.0 - 2.0 ] ratio Med E` Cl 0.1 cm/sec MV E/A 0.6 [ 0.8 - 1.5 ] ratio TR Peak PG 40.0 mmHg PV Peak Cl 1.0 [ 40.0 - 80.0 ] cm/sec PV Peak PG 4.0 mmHg Findings: Left Ventricle: Normal left ventricular systolic function. Normal left ventricular cavity size. Mild concentric left ventricular hypertrophy. Ejection fraction is visually estimated at 60 %. Tissue Doppler/Mitral Doppler indices are consistent with impaired relaxation (Stage I diastolic dysfunction). Right Ventricle: Normal right ventricular size. Normal right ventricular systolic function. Left Atrium: There is mild-moderate enlargement of left atrium. Right Atrium: The right atrium is normal in size. Mitral Valve: Normal appearance and function of the mitral valve with trace regurgitation. Aortic Valve: Normal appearance of the aortic valve. No significant aortic stenosis with trivial insufficiency. Tricuspid Valve: Normal appearance of the tricuspid valve. The estimated Peak RVSP is 43 mmHg. There is mild tricuspid regurgitation. Pulmonic Valve: Normal pulmonic valve appearance. Pericardium: Normal pericardium with no significant pericardial effusion. Aorta: Normal aortic root. IVC: Normal size and normal respiratory collapse consistent with normal right atrial pressure. Conclusions: Normal left ventricular systolic function. Normal left ventricular cavity size. Mild concentric left ventricular hypertrophy. Ejection fraction is visually estimated at 60 %. Tissue Doppler/Mitral Doppler indices are consistent with impaired relaxation (Stage I diastolic dysfunction). Normal right ventricular size. Normal right ventricular systolic function. There is mild-moderate enlargement of left atrium. The right atrium is normal in size. The estimated Peak RVSP is 43 mmHg. There is mild tricuspid regurgitation. No significant valvular stenosis or regurgitation seen of remaining visualized valves. Normal pericardium with no significant pericardial effusion. Electronically Signed By: Orlin Montez 2018-11-19 15:09:16 PDT
[2018-11-19 15:30] VITALS: Ht 157.5 cm; Wt 70.3 kg
[2018-11-19 15:49] VITALS: BP 100/50; PULSE 88; RESP 19
[2018-11-19 16:01] VITALS: PULSE 84
[2018-11-19] MEDS: ACCU-CHEK XX SCH ×2 (17:42→21:00)
[2018-11-19] MEDS: metFORMIN 500 MG TAB PO SCH (18:15)
[2018-11-19] MEDS ORDERED: BISACODYL (EC) 5 MG TAB PO ONE (19:30)
[2018-11-19 19:46] VITALS: BP 121/59; PULSE 88; RESP 20
[2018-11-19 20:00] VITALS: PULSE 100
--- NOTE | 2018-11-19 20:35 | CONS ---
DATE OF ADMISSION: 11/19/2018 DATE OF CONSULTATION: 11/19/2018 TYPE OF CONSULTATION: Gastroenterology. Dear Dr. Mendez: Thank you for asking me to see Mr. Jourdan Muhammad in GI consultation. HISTORY OF PRESENT ILLNESS: As you know, patient is an 88-year-old gentleman who is admitte d to the hospital because of what appears like a feeling like a fainting spell and was admitted to [facility]. CT of the brain is negative. Myocardial infarction was ruled out. CVA has been ruled o ut. However from the GI standpoint, he has been experiencing upper abdominal pain for the past sever al weeks. Usually, pain comes after eating food. He gets bloating. He also developed a feeling of early satiety. He has some nausea, no vomiting. The patient continues to have abdominal pain despite pantoprazole. He lost some weight. He has sign ificant constipation. He was seen in the emergency room 3 weeks ago and that showed evidence of cons tipation. He was given laxatives. Despite taking laxatives, he still continues to have GI symptoms. No history of vomiting blood or passing blood from the rectum. MEDICATIONS: He has been on innumerable medications includin. Zofran. 2. Tylenol. 3. Ativan. 4. Ambien. 5. Pepcid. 6. Colace. 7. Eliquis. 8. Lipitor. 9. Cordarone. 10. Sinequan. 11. Lasix. 12. Neurontin. 13. Atarax. 14. Synthroid. 15. Tradjenta. 16. Glucophage. 17. Protonix. 18. ordered yesterday. Please refer to the notes for more information. SOCIAL HISTORY: Used to drink alcohol before. PHYSICAL EXAMINATION: GENERAL: The patient is an 88-year-old male who at this time is alert, well built. VITAL SIGNS: He is afebrile. Temperature 98.6, blood pressure is 100/50. CARDIOVASCULAR: Normal heart sounds. RESPIRATORY: Normal breath sounds. ABDOMEN: Shows soft abdomen with no palpable masses, no tenderness, no distention. LABORATORY WORKUP: Hemoglobin is 10.2, hematocrit 30.8, WBC count 14,200. Potassium 5.5, BUN 24, cr eatinine 0.94. Troponin 0.012. CLINICAL IMPRESSION: The patient is presenting with history of what appears like syncopal episode, b ut he never lost consciousness. From the gastrointestinal standpoint, his abdominal pain which has b een going on chronically not responding to pantoprazole and Pepcid and he also has a history of chron ic constipation, certainly peptic ulcer disease needs to be ruled out particularly based on the fact has got anemia. Gastrointestinal bleeding should be considered, arteriovenous malformation esophagit is, peptic ulcer disease on consideration. Certainly, colorectal neoplasm needs to be ruled out. PLAN: At this time, I would recommend upper endoscopy as well as lower endoscopy. Once again, doctor, thank you for this consultation. Dictated By: SHELLEY LINARES MD NC/NTS Conf#: [id number] DID#: [id number] CC: ALBERTO KRISHNAN MD; ALEJANDRO MENDEZ MD;*EndCC*
[2018-11-19] MEDS: GABAPENTIN 300 MG CAP PO SCH (20:47)
[2018-11-19] MEDS: ATORVASTATIN 10 MG TAB PO SCH (20:47)
[2018-11-19] MEDS: APIXABAN 5 MG TABLET PO SCH (20:47)
[2018-11-19] MEDS: TAMSULOSIN (SR) 0.4 MG CAP PO SCH (20:47)
[2018-11-19] MEDS: FAMOTIDINE 20 MG TAB PO SCH (20:48)
[2018-11-19] MEDS ORDERED: HEPARIN 5,000 UNIT/1 ML VIAL SC SCH (21:00)
[2018-11-19] MEDS ORDERED: PEG/ELECTROLYTES 4L BTL PO ONE (21:00)
[2018-11-19] MEDS: DOXEPIN 25 MG CAP PO SCH (22:24)
[2018-11-19] MEDS: THIAMINE 100 MG TAB PO SCH (22:25)
[2018-11-19 23:59] VITALS: BP 104/53; PULSE 98; RESP 18
[2018-11-20] VITALS (15 sets, daily range): BP systolic 99–114; BP diastolic 32–58; PULSE 70–101; RESP 17–26
[2018-11-20] MEDS: ACCU-CHEK XX SCH ×5 (02:25→20:35)
[2018-11-20] MEDS ORDERED: PROPOFOL 200 MG INJ ONE (07:00)
[2018-11-20] MEDS: LEVOTHYROXINE 100 MCG TAB PO SCH (07:00)
[2018-11-20] MEDS ORDERED: VIT E PO SCH (09:00)
[2018-11-20] MEDS ORDERED: SAW PO SCH (09:00)
[2018-11-20] MEDS ORDERED: ASPIRIN 81 MG TAB PO SCH (09:00)
[2018-11-20] MEDS ORDERED: SOD SEL PO SCH (09:00)
[2018-11-20] MEDS ORDERED: LYC PO SCH (09:00)
[2018-11-20] MEDS ORDERED: LACTOBACILLUS COMBINATION NO 4 PO SCH (09:00)
[2018-11-20] MEDS ORDERED: [UNRECOGNIZED DRUG - OTHER] PO SCH (09:00)
[2018-11-20] MEDS ORDERED: PYG PO SCH (09:00)
[2018-11-20] MEDS ORDERED: PANTOPRAZOLE (EC) 40 MG TAB PO SCH (09:00)
[2018-11-20] MEDS: GABAPENTIN 300 MG CAP PO SCH ×3 (09:00→20:33)
[2018-11-20] MEDS: INSULIN ASPART [NOVOLOG] 3 ML PEN SC SCH ×4 (09:22→20:26)
--- NOTE | 2018-11-20 11:04 | PREAC ---
Date/Time of Note Date/Time of Note DATE: 11/20/18 TIME: 11:03 Anesthesia Eval and Record Evaluation Time Pre-Procedure Interview DATE: 11/20/18 TIME: 11:03 Age 88 Sex male NPO: 8 hrs Preoperative diagnosis ANEMIA Planned procedure EGD AND COLON Past Medical History Past Medical History: Includes Cardio: HTN, CAD, PPM/AICD, CHF Heme: Anemia Surgery & Anesthesia Issues No known issue Meds Anticoagulation: No Beta Saravanan within 24 hr: Yes Active Scripts Metformin Hcl (Glucophage) 500 Mg Tablet, 500 MG PO PC BREAKFAST DINNER for 30 Days, #60 TAB 3 Refills Prov:OMKAR KUMAR MD 11/16/17 Linagliptin (TRADJENTA) 5 Mg Tablet, 5 MG PO DAILY for 30 Days, #30 TAB 3 Refills Prov:OMKAR KUMAR MD 11/16/17 Tamsulosin Hcl* (Flomax*) 0.4 Mg Cap.er.24h, 0.4 MG PO QHS for 30 Days, #30 CAP Prov:ALEJANDRO BEAVER MD 08/25/17 Metoprolol Succinate* (Toprol XL*) 25 Mg Tab.sr.24h, 25 MG PO QAM for 30 Days, #30 TAB 4 Refills To replace carvedilol Prov:ALEJANDRO BEAVER MD 08/25/17 Reported Medications Icosapent Ethyl (VASCEPA) 1 Gm Capsule, 1 GM PO BID, CAP 11/19/18 Saw/Vit E/Sod Marely/Lyc/Beta/Pyg (Prostate Health Caplet) 1 Each Tablet, 1 EACH PO DAILY, TAB 11/19/18 Lactobacillus Combination No.4 (Probiotic) 1 Each Capsule, 1 CAP PO DAILY, CAP 11/19/18 Gabapentin* (Gabapentin*) 300 Mg Capsule, 300 MG PO TID for 30 Days, #90 11/19/18 Furosemide* (Furosemide*) 20 Mg Tablet, 20 MG PO QAM for 30 Days, #30 11/19/18 Doxepin Hcl* (Doxepin Hcl*) 25 Mg Capsule, 25 MG PO QHS for 30 Days, #30 11/19/18 Triamcinolone Acetonide* (Kenalog*) 0.1%-15GM Oint, 1 APPLIC TOP BID, #1 EA 03/23/18 Hydroxyzine Hcl* (Hydroxyzine Hcl*) 10 Mg Tablet, 10 MG PO QHS PRN for ITCHING, #30 TAB 03/23/18 Ipratropium [place]* (Atrovent HFA*) 12.9 Gm Aer.w.adap, 2 PUFF INHALATION Q4H PRN for WHEEZING AND SOB, #1 INHALER 02/05/18 Amiodarone Hcl* (Amiodarone Hcl*) 200 Mg Tablet, 200 MG PO DAILY, #30 TAB 02/05/18 Levothyroxine Sodium* (Levothyroxine Sodium*) 100 Mcg Tablet, 100 MCG PO BEFORE BREAKFAST, #30 TAB 06/17/16 Apixaban* (Eliquis*) 2.5 Mg Tablet, 2.5 MG PO BID, TAB 06/17/16 Atorvastatin Calcium (Atorvastatin Calcium) 10 Mg Tablet, 10 MG PO QHS, #30 TAB 06/17/16 Pantoprazole* (Pantoprazole*) 40 Mg Tablet.dr, 40 MG PO DAILY, TAB 06/17/16 Discontinued Reported Medications Fluticasone-Vilanterol (Breo Ellipta Inhaler) 100-25 Mcg/Actuation Aer.pow.ba, 1 PUFF INHALATION DAILY, #1 INHALER 02/18/18 Icosapent Ethyl (Vascepa) 0.5 Gm Capsule, 0.5 GM PO, CAP 02/18/18 Azelastine Hcl* (Azelastine Hcl*) 0.05%-6 Ml Opht Drops, 1 DROP BOTH EYES BID, #1 EA 02/05/18 Hydrochlorothiazide* (Hydrochlorothiazide*) 12.5 Mg Tablet, 12.5 MG PO DAILY, #30 TAB 11/15/17 Montelukast Sodium* (Montelukast Sodium*) 10 Mg Tablet, 10 MG PO QHS, #30 TAB 06/17/16 Discontinued Scripts Docusate Sodium* (Colace*) 100 Mg Capsule, 100 MG PO TID, #30 CAP Prov:JERRY SPEARS S. 11/02/18 Dicyclomine HCl (Dicyclomine HCl) 10 Mg Capsule, 10 MG PO TID PRN for ABDOMINAL CRAMPING, #20 CAP Prov:JERRY SPEARS. 11/02/18 Levofloxacin* (Levaquin*) 750 Mg Tablet, 750 MG PO DAILY for 5 Days, TAB Prov:VENKATA LOWRY 06/21/18 Current Medications IV Flush (NS 3 ml) 3 ml PER PROTOCOL IV ; Start 11/19/18 at 13:30 Lorazepam (Ativan) 0.5 mg Q8H PRN PO .ANXIETY; Start 11/19/18 at 13:30 Ondansetron HCl (Zofran Tab) 4 mg Q6H PRN PO NAUSEA/VOMITING; Start 11/19/18 at 13:30 Aspirin (Aspirin) 81 mg DAILY PO ; Start 11/20/18 at 09:00 Acetaminophen (Tylenol Tab) 650 mg Q6H PRN PO .PAIN 1-3 OR TEMP; Start 11/19/18 at 13:30 Acetaminophen/ Hydrocodone Bitart ([place] (5/325)) 1 tab Q6H PRN PO .PAIN 4-6; Start 11/19/18 at 13:30 Zolpidem Tartrate (Ambien) 5 mg QHS PRN PO .INSOMNIA; Start 11/19/18 at 13:30 Docusate Sodium (Colace) 100 mg Q12H PRN PO .CONSTIPATION; Start 11/19/18 at 13:30 Famotidine (Pepcid) 20 mg Q12 PO Last administered on 11/19/18at 20:48; Admin Dose 20 MG; Start 11/19/18 at 21:00 Amiodarone HCl (Cordarone) 200 mg DAILY PO Last administered on 11/19/18at 14:57; Admin Dose 200 MG; Start 11/19/18 at 13:30 Apixaban (Eliquis) 2.5 mg BID PO Last administered on 11/19/18at 20:47; Admin Dose 2.5 MG; Start 11/19/18 at 21:00 Atorvastatin Calcium (Lipitor) 10 mg QHS PO Last administered on 11/19/18 20:47; Admin Dose 10 MG; Start 11/19/18 at 21:00 Doxepin HCl (Sinequan) 25 mg QHS PO Last administered on 11/19/18at 22:24; Admin Dose 25 MG; Start 11/19/18 at 21:00 Furosemide (Lasix) 20 mg QAM PO ; Start 11/20/18 at 09:00 Gabapentin (Neurontin) 300 mg TID PO Last administered on 11/19/18at 20:47; Admin Dose 300 MG; Start 11/19/18 at 21:00 Hydroxyzine HCl (Atarax) 10 mg QHS PRN PO ITCHING; Start 11/19/18 at 13:30 Ipratropium [place] (Atrovent Hfa) 2 puff Q4H PRN INH WHEEZING AND SOB; Start 11/19/18 at 13:30 Levothyroxine Sodium (Synthroid) 100 mcg BEFORE BREAKFAST PO ; Start 11/20/18 at 07:00 Linagliptin (Tradjenta) 5 mg DAILY PO ; Start 11/20/18 at 09:00 Metformin HCl (Glucophage) 500 mg PC BREAKFAST DINNER PO Last administered on 11/19/18at 18:15; Admin Dose 500 MG; Start 11/19/18 at 19:00 Metoprolol Succinate (Toprol Xl) 25 mg QAM PO ; Start 11/20/18 at 09:00 Pantoprazole (Protonix Tab) 40 mg DAILY PO ; Start 11/20/18 at 09:00 Tamsulosin HCl (Flomax) 0.4 mg QHS PO Last administered on 11/19/18at 20:47; Admin Dose 0.4 MG; Start 11/19/18 at 21:00 Miscellaneous Information 1 gm BID PO ; Start 11/19/18 at 21:00; Status UNV Miscellaneous Information 1 each DAILY PO ; Start 11/20/18 at 09:00; Status UNV Diagnostic Test (Pha) (Accu-Chek) 1 ea AC MEALS AND BEDTIME XX Last administered on 11/20/18at 08:42; Admin Dose 1 EA; Start 11/19/18 at 17:30 Diagnostic Test (Pha) (Accu-Chek) 1 ea 02 XX Last administered on 11/20/18at 02:25; Admin Dose 1 EA; Start 11/20/18 at 02:00 Insulin Aspart (Novolog Insulin Pen) NOVOLOG *MODERATE* ALGORITHM WITH MEALS BEDTIME SC Last administered on 11/20/18 09:22; Admin Dose 4 UNIT; Start 11/19/18 at 18:00 Thiamine HCl (Vitamin B1) 100 mg QHS PO Last administered on 11/19/18at 22:25; Admin Dose 100 MG; Start 11/19/18 at 21:00 Lactobacillus Acidophilus/ Rhamnosus (Culturelle) 1 cap DAILY PO ; Start 11/20/18 at 09:00 Miscellaneous Information 1 ea NOTE XX ; Start 11/19/18 at 14:00 Glucose (Glutose) 15 gm Q15M PRN PO DECREASED GLUCOSE; Start 11/19/18 at 14:00 Glucose (Glutose) 22.5 gm Q15M PRN PO DECREASED GLUCOSE; Start 11/19/18 at 14:00 Dextrose (D50w Syringe) 25 ml Q15M PRN IV DECREASED GLUCOSE; Start 11/19/18 at 14:00 Dextrose (D50w Syringe) 50 ml Q15M PRN IV DECREASED GLUCOSE; Start 11/19/18 at 14:00 Glucagon (Glucagen) 1 mg Q15M PRN IM DECREASED GLUCOSE; Start 11/19/18 at 14:00 Glucose (Glutose) 15 gm Q15M PRN BUCCAL DECREASED GLUCOSE; Start 11/19/18 at 14:00 Miscellaneous Information (*Order Clarification Bulletin) MEDICATION REQUIRES CLARIFICATI... Q12H XX ; Start 11/20/18 at 09:00 Meds reviewed: Yes Allergies Coded Allergies: No Known Drug Allergy (Unverified Allergy, Unknown, 11/19/18) Allergies Reviewed: Yes Labs/Studies Labs Reviewed: Reviewed by anesthesiologist Result Diagram: 11/20/18 0504 11/20/18 0504 Laboratory Tests 11/20/18 05:04 test: N/A Studies: ECG, CXR Pre-procedure Exam Last vitals Vital Signs Date Temp Pulse Resp B/P (MAP) Pulse Ox O2 O2 Flow FiO2 Time Delivery Rate 11/20/18 81 08:00 11/20/18 98.0 18 113/56 97 Room Air 07:06 (75) Airway: Adequate mouth opening, Adequate thyromental dist Mallampati: Mallampati II Teeth: Normal Lung: Normal Heart: Normal ASA Physical Status ASA physical status: 3 Emergency: None Planned Anesthetic General/MAC: MAC Planned Pain Management Parenteral pain med Pre-operative Attestations Prior to commencing anesthesia and surgery, the patient was re-evaluated, there was verification of: *The patient's identity *The results of appropriate recent lab work and preoperative vital signs *The above evaluation not changing prior to induction *Anesthetic plan, risk benefits, alternative and complications discussed with patient/family; questions answered; patient/family understands, accepts and wishes to proceed. CECILIA HWANG Nov 20, 2018 11:04
[2018-11-20] MEDS ORDERED: PROPOFOL 40 ML ONE (11:08)
[2018-11-20] MEDS ORDERED: LIDOCAINE 2% (SDV) 5 ML INJ ONE (11:09)
[2018-11-20] MEDS ORDERED: METOCLOPRAMIDE 10 MG INJ IV PRN (11:30)
[2018-11-20] MEDS ORDERED: ONDANSETRON 4 MG INJ IV PRN (11:30)
[2018-11-20] MEDS ORDERED: FENTAnyl 50 MCG/ML VIAL IV PRN (11:30)
[2018-11-20] MEDS ORDERED: EPHEDrine 25 MG/5 ML SYG IV PRN (11:30)
[2018-11-20] MEDS ORDERED: ALBUTEROL 0.083% (NEB) 2.5 MG/3 ML AMP HHN PRN (11:30)
[2018-11-20] MEDS ORDERED: LABETALOL HCL 20MG INJ IV PRN (11:30)
[2018-11-20] MEDS ORDERED: hydrALAzine 20 MG INJ IV PRN (11:30)
--- NOTE | 2018-11-20 12:14 | PAC ---
Date/Time of Note Date/Time of Note DATE: 11/20/18 TIME: 12:14 Post-Anesthesia Notes Post-Anesthesia Note Last documented vital signs Vital Signs Date Temp Pulse Resp B/P (MAP) Pulse Ox O2 O2 Flow FiO2 Time Delivery Rate 11/20/18 97.9 83 18 112/54 96 Room Air 1214 (73) Activity: WNL Respiratory function: WNL Cardiovascular function: WNL Mental status: Baseline Pain reasonably controlled: Yes Hydration appropriate: Yes Nausea/Vomiting absent: Yes CECILIA HWANG Nov 20, 2018 12:14
[2018-11-20] MEDS: METOPROLOL (XL) 25 MG TAB PO SCH (13:37)
[2018-11-20] MEDS: FUROSEMIDE 20 MG TAB PO SCH (13:37)
[2018-11-20] MEDS: AMIODARONE 200 MG TAB PO SCH (13:37)
[2018-11-20] MEDS: LACTOBACILLUS RHAMNOSUS CAP PO SCH (13:38)
[2018-11-20] MEDS: FAMOTIDINE 20 MG TAB PO SCH (13:38)
[2018-11-20] MEDS: metFORMIN 500 MG TAB PO SCH ×2 (13:38→18:28)
[2018-11-20] MEDS: LINAGLIPTIN 5 MG TABLET PO SCH (13:38)
[2018-11-20] MEDS: APIXABAN 5 MG TABLET PO SCH ×2 (13:39→20:34)
[2018-11-20] MEDS ORDERED: SOD FERRIC GLUC COMPLX 125 MG in SOD CHLORIDE 0.9% 100 ML IVPB ONE (14:30)
--- NOTE | 2018-11-20 14:41 | PN ---
Date/Time of Note Date/Time of Note DATE: 11/20/18 TIME: 14:37 Assessment/Plan VTE Prophylaxis Risk score (from Ns)>0 risk: 3 SCD applied (from Ns): Yes SCD contraindicated: low risk/ambulating Pharmacological prophylaxis: NA/contraindicated Pharm contraindication: bleeding Lines/Catheters IV [facility] Peripheral IV Assessment/Plan Problems: (1) Peptic ulcer disease with hemorrhage Status: Acute Comment: Upper endoscopy is identified 7 separate gastric ulcers. This is most likely going to be related to nonsteroidal anti-inflammatory usage. He is going to be on full dose proton pump inhibitor and sucralfate. In addition to that I will make sure that his H&H are stable overnight before discharging him home. (2) Paroxysmal atrial fibrillation Status: Chronic Comment: Noted. 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 at this time Result Diagram: 11/20/18 0504 11/20/18 0504 Results 24hrs Laboratory Tests Test 11/19/18 16:47 11/19/18 17:40 11/19/18 20:49 11/19/18 22:23 Creatine Kinase 28 45 Creatine Kinase Index 2.2 1.6 Creatinine Kinase MB 0.62 0.72 (Mass) Troponin I < 0.012 < 0.012 Bedside Glucose 234 H 194 Sodium Level 135 Potassium Level 4.5 Chloride Level 99 Carbon Dioxide Level 28 Anion Gap 8 Blood Urea Nitrogen 23 H Creatinine 0.73 Est Glomerular Filtrat Rate mL/min Glucose Level 191 Calcium Level 8.7 Total Bilirubin 0.3 Direct Bilirubin 0.00 Indirect Bilirubin 0.3 Aspartate Amino 19 Transf (AST/SGOT) Alanine 20 Aminotransferase (ALT/SG PT) Alkaline Phosphatase 98 Total Protein 6.2 Albumin 3.3 Globulin 2.90 Albumin/Globulin Ratio 1.13 Amylase Level 48 Lipase 41 Test 11/20/18 02:21 11/20/18 05:00 11/20/18 05:04 11/20/18 08:40 Bedside Glucose 191 206 Triglycerides Level 139 Cholesterol Level 97 L LDL Cholesterol, 52 Calculated HDL Cholesterol 17 L Cholesterol/HDL Ratio 5.7 White Blood Count 6.6 # Red Blood Count 2.91 L Hemoglobin 8.7 L Hematocrit 25.8 L Mean Corpuscular Volume 88.7 Mean Corpuscular 29.9 Hemoglobin Mean Corpuscular 33.7 Hemoglobin Concent Red Cell Distribution 13.2 Width Platelet Count 229 Mean Platelet Volume 8.4 Immature Granulocytes % 0.900 H Neutrophils % 60.3 Lymphocytes % 14.4 L Monocytes % 12.4 H Eosinophils % 11.1 H Basophils % 0.9 Nucleated Red Blood 0.0 Cells % Immature Granulocytes # 0.060 H Neutrophils # 4.0 Lymphocytes # 0.9 Monocytes # 0.8 Eosinophils # 0.7 H Basophils # 0.1 Nucleated Red Blood 0.0 Cells # Sodium Level 138 Potassium Level 4.3 Chloride Level 101 Carbon Dioxide Level 33 H Anion Gap 4 L Blood Urea Nitrogen 19 Creatinine 0.66 Est Glomerular Filtrat Rate mL/min Glucose Level 179 Hemoglobin A1c 8.9 H Calcium Level 8.6 Total Bilirubin 0.3 Direct Bilirubin 0.00 Indirect Bilirubin 0.3 Aspartate Amino 19 Transf (AST/SGOT) Alanine 29 Aminotransferase (ALT/SG PT) Alkaline Phosphatase 89 Total Protein 5.8 L Albumin 2.8 L Globulin 3.00 Albumin/Globulin Ratio 0.93 Test 11/20/18 13:32 Bedside Glucose 130 Subjective 24 Hr Interval Summary Free Text/Dictation Patient reports is feeling a little bit better today. No further syncope or near syncope. Denies melanic stools Constitutional: no complaints Respiratory: no complaints Cardiovascular: no complaints Gastrointestinal: pain (Epigastric pain is less) Genitourinary: no complaints Neurologic: no complaints Exam/Review of Systems Exam Vitals Vital Signs Date Temp Pulse Resp B/P (MAP) Pulse Ox O2 O2 Flow FiO2 Time Delivery Rate 11/20/18 98.0 74 17 107/53 94 Room Air 13:33 (71) Intake and Output 11/19/18 11/19/18 11/20/18 1515:00 23:00 07:00 IntakeIntake Total 4250 ml BalanceBalance 4250 ml Constitutional: alert, oriented Respiratory: clear to auscultation, normal air movement Cardiovascular: regular rate and rhythm, nl pulses Gastrointestinal: soft, nl liver, spleen, non-tender Results Results 24hrs Laboratory Tests Test 11/19/18 16:47 11/19/18 17:40 11/19/18 20:49 11/19/18 22:23 Creatine Kinase 28 45 Creatine Kinase Index 2.2 1.6 Creatinine Kinase MB 0.62 0.72 (Mass) Troponin I < 0.012 < 0.012 Bedside Glucose 234 H 194 Sodium Level 135 Potassium Level 4.5 Chloride Level 99 Carbon Dioxide Level 28 Anion Gap 8 Blood Urea Nitrogen 23 H Creatinine 0.73 Est Glomerular Filtrat Rate mL/min Glucose Level 191 Calcium Level 8.7 Total Bilirubin 0.3 Direct Bilirubin 0.00 Indirect Bilirubin 0.3 Aspartate Amino 19 Transf (AST/SGOT) Alanine 20 Aminotransferase (ALT/SG PT) Alkaline Phosphatase 98 Total Protein 6.2 Albumin 3.3 Globulin 2.90 Albumin/Globulin Ratio 1.13 Amylase Level 48 Lipase 41 Test 11/20/18 02:21 11/20/18 05:00 11/20/18 05:04 11/20/18 08:40 Bedside Glucose 191 206 Triglycerides Level 139 Cholesterol Level 97 L LDL Cholesterol, 52 Calculated HDL Cholesterol 17 L Cholesterol/HDL Ratio 5.7 White Blood Count 6.6 # Red Blood Count 2.91 L Hemoglobin 8.7 L Hematocrit 25.8 L Mean Corpuscular Volume 88.7 Mean Corpuscular 29.9 Hemoglobin Mean Corpuscular 33.7 Hemoglobin Concent Red Cell Distribution 13.2 Width Platelet Count 229 Mean Platelet Volume 8.4 Immature Granulocytes % 0.900 H Neutrophils % 60.3 Lymphocytes % 14.4 L Monocytes % 12.4 H Eosinophils % 11.1 H Basophils % 0.9 Nucleated Red Blood 0.0 Cells % Immature Granulocytes # 0.060 H Neutrophils # 4.0 Lymphocytes # 0.9 Monocytes # 0.8 Eosinophils # 0.7 H Basophils # 0.1 Nucleated Red Blood 0.0 Cells # Sodium Level 138 Potassium Level 4.3 Chloride Level 101 Carbon Dioxide Level 33 H Anion Gap 4 L Blood Urea Nitrogen 19 Creatinine 0.66 Est Glomerular Filtrat Rate mL/min Glucose Level 179 Hemoglobin A1c 8.9 H Calcium Level 8.6 Total Bilirubin 0.3 Direct Bilirubin 0.00 Indirect Bilirubin 0.3 Aspartate Amino 19 Transf (AST/SGOT) Alanine 29 Aminotransferase (ALT/SG PT) Alkaline Phosphatase 89 Total Protein 5.8 L Albumin 2.8 L Globulin 3.00 Albumin/Globulin Ratio 0.93 Test 11/20/18 13:32 Bedside Glucose 130 Medications Medication Current Medications IV Flush (NS 3 ml) 3 ml PER PROTOCOL IV ; Start 11/19/18 at 13:30 Lorazepam (Ativan) 0.5 mg Q8H PRN PO .ANXIETY; Start 11/19/18 at 13:30 Ondansetron HCl (Zofran Tab) 4 mg Q6H PRN PO NAUSEA/VOMITING; Start 11/19/18 at 13:30 Aspirin (Aspirin) 81 mg DAILY PO Last administered on 11/20/18at 13:38; Admin Dose 81 MG; Start 11/20/18 at 09:00; Status Hold Acetaminophen (Tylenol Tab) 650 mg Q6H PRN PO .PAIN 1-3 OR TEMP; Start 11/19/18 at 13:30 Acetaminophen/ Hydrocodone Bitart ([place] (5/325)) 1 tab Q6H PRN PO .PAIN 4-6; Start 11/19/18 at 13:30 Zolpidem Tartrate (Ambien) 5 mg QHS PRN PO .INSOMNIA; Start 11/19/18 at 13:30 Docusate Sodium (Colace) 100 mg Q12H PRN PO .CONSTIPATION; Start 11/19/18 at 13:30 Amiodarone HCl (Cordarone) 200 mg DAILY PO Last administered on 11/20/18 13:37; Admin Dose 200 MG; Start 11/19/18 at 13:30 Apixaban (Eliquis) 2.5 mg BID PO Last administered on 11/20/18at 13:39; Admin Dose 2.5 MG; Start 11/19/18 at 21:00 Atorvastatin Calcium (Lipitor) 10 mg QHS PO Last administered on 11/19/18at 20:47; Admin Dose 10 MG; Start 11/19/18 at 21:00 Doxepin HCl (Sinequan) 25 mg QHS PO Last administered on 11/19/18 22:24; Admin Dose 25 MG; Start 11/19/18 at 21:00 Furosemide (Lasix) 20 mg QAM PO Last administered on 11/20/18 13:37; Admin Dose 20 MG; Start 11/20/18 at 09:00 Hydroxyzine HCl (Atarax) 10 mg QHS PRN PO ITCHING; Start 11/19/18 at 13:30 Ipratropium [place] (Atrovent Hfa) 2 puff Q4H PRN INH WHEEZING AND SOB; Start 11/19/18 at 13:30 Levothyroxine Sodium (Synthroid) 100 mcg BEFORE BREAKFAST PO ; Start 11/20/18 at 07:00 Linagliptin (Tradjenta) 5 mg DAILY PO Last administered on 11/20/18 13:38; Admin Dose 5 MG; Start 11/20/18 at 09:00 Metoprolol Succinate (Toprol Xl) 25 mg QAM PO Last administered on 11/20/18 13:37; Admin Dose 25 MG; Start 11/20/18 at 09:00 Tamsulosin HCl (Flomax) 0.4 mg QHS PO Last administered on 11/19/18 20:47; Admin Dose 0.4 MG; Start 11/19/18 at 21:00 Miscellaneous Information 1 gm BID PO ; Start 11/19/18 at 21:00; Status UNV Miscellaneous Information 1 each DAILY PO ; Start 11/20/18 at 09:00; Status UNV Diagnostic Test (Pha) (Accu-Chek) 1 ea AC MEALS AND BEDTIME XX Last administered on 11/20/18at 08:42; Admin Dose 1 EA; Start 11/19/18 at 17:30 Diagnostic Test (Pha) (Accu-Chek) 1 ea 02 XX Last administered on 11/20/18at 02:25; Admin Dose 1 EA; Start 11/20/18 at 02:00 Insulin Aspart (Novolog Insulin Pen) NOVOLOG *MODERATE* ALGORITHM WITH MEALS BEDTIME SC Last administered on 11/20/18 09:22; Admin Dose 4 UNIT; Start 11/19/18 at 18:00 Thiamine HCl (Vitamin B1) 100 mg QHS PO Last administered on 11/19/18 22:25; Admin Dose 100 MG; Start 11/19/18 at 21:00 Lactobacillus Acidophilus/ Rhamnosus (Culturelle) 1 cap DAILY PO Last administered on 11/20/18 13:38; Admin Dose 1 CAP; Start 11/20/18 at 09:00 Miscellaneous Information 1 ea NOTE XX ; Start 11/19/18 at 14:00 Glucose (Glutose) 15 gm Q15M PRN PO DECREASED GLUCOSE; Start 11/19/18 at 14:00 Glucose (Glutose) 22.5 gm Q15M PRN PO DECREASED GLUCOSE; Start 11/19/18 at 14:00 Dextrose (D50w Syringe) 25 ml Q15M PRN IV DECREASED GLUCOSE; Start 11/19/18 at 14:00 Dextrose (D50w Syringe) 50 ml Q15M PRN IV DECREASED GLUCOSE; Start 11/19/18 at 1 4:00 Glucagon (Glucagen) 1 mg Q15M PRN IM DECREASED GLUCOSE; Start 11/19/18 at 14:00 Glucose (Glutose) 15 gm Q15M PRN BUCCAL DECREASED GLUCOSE; Start 11/19/18 at 14:00 Miscellaneous Information (*Order Clarification Bulletin) MEDICATION REQUIRES CLARIFICATI... Q12H XX ; Start 11/20/18 at 09:00 Fentanyl (Sublimaze) 25 mcg PACU ORDER PRN IV MILD PAIN 1-3; Start 11/20/18 at 11:30; Stop 11/20/18 at 15:30 Ondansetron HCl (Zofran Inj) 4 mg PACU ORDER PRN IV NAUSEA/VOMITING; Start 11/20/18 at 11:30; Stop 11/20/18 at 15:30 Metoclopramide HCl (Reglan) 10 mg PACU ORDER PRN IV NAUSEA/VOMITING; Start 11/20/18 at 11:30; Stop 11/20/18 at 15:30 Labetalol HCl (Labetalol) 5 mg PACU ORDER PRN IV HIGH BLOOD PRESSURE; Start 11/20/18 at 11:30; Stop 11/20/18 at 15:30 Hydralazine HCl (Apresoline) 5 mg PACU ORDER PRN IV HIGH BLOOD PRESSURE; Start 11/20/18 at 11:30; Stop 11/20/18 at 15:30 Ephedrine Sulfate 5 mg PACU ORDER PRN IV BLOOD PRESSURE SUPPORT; Start 11/20/18 at 11:30; Stop 11/20/18 at 15:30 Albuterol (Proventil 0.083% (Neb)) 2.5 mg PACU ORDER PRN HHN .WHEEZING; Start 11/20/18 at 11:30; Stop 11/20/18 at 15:30 Sucralfate (Carafate) 1 gm QID PO ; Start 11/20/18 at 17:00; Stop 12/20/18 at 16:59; Status UNV Gabapentin (Neurontin) 600 mg TID PO ; Start 11/20/18 at 21:00 Metformin HCl (Glucophage) 1,000 mg PC BREAKFAST DINNER PO ; Start 11/20/18 at 19:00; Status UNV Pantoprazole (Protonix Tab) 40 mg BID PO ; Start 11/20/18 at 21:00; Stop 01/19/19 at 20:59; Status UNV Ferric Sodium Gluconate Complex 125 mg/Sodium Chloride 100 ml @ 100 mls/hr ONCE ONCE IVPB ; Start 11/20/18 at 14:30; Stop 11/20/18 at 15:29; Status UNV Ferric Sodium Gluconate Complex 125 mg/Sodium Chloride 100 ml @ 100 mls/hr ONCE ONCE IVPB ; Start 11/21/18 at 08:00; Stop 11/21/18 at 08:59; Status UNV ALEJANDRO BEAVER MD Nov 20, 2018 14:41
[2018-11-20] MEDS: SUCRALFATE 1 GM TAB PO SCH ×2 (17:27→20:33)
[2018-11-20] MEDS: TAMSULOSIN (SR) 0.4 MG CAP PO SCH (20:32)
[2018-11-20] MEDS: PANTOPRAZOLE (EC) 40 MG TAB PO SCH (20:33)
[2018-11-20] MEDS: DOXEPIN 25 MG CAP PO SCH (20:33)
[2018-11-20] MEDS: ATORVASTATIN 10 MG TAB PO SCH (20:33)
[2018-11-20] MEDS: THIAMINE 100 MG TAB PO SCH (20:33)
[2018-11-20] MEDS ORDERED: traMADol 50 MG TAB PO PRN (22:00)
[2018-11-21] VITALS (7 sets, daily range): BP systolic 92–107; BP diastolic 47–56; PULSE 74–86; RESP 18
[2018-11-21] MEDS: ACCU-CHEK XX SCH ×3 (02:00→11:30)
[2018-11-21] MEDS: LEVOTHYROXINE 100 MCG TAB PO SCH (06:17)
--- NOTE | 2018-11-21 07:06 | PDOCDIS ---
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
--- NOTE | 2018-11-21 07:06 | DS ---
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 Dong Procedures Echocardiogram; CT scan brain; esophagogastroduodenoscopy Hx of Present Illness This is the [facility] admission for this single 88-year-old S[place] male who came in after near syncopal event. He had been in his usual state of health and having been having some issues with abdominal complaints. He actually been evaluated at this emergency room as well as by the utilization review coordinator Dr. Dong. His last CT scan from roughly 2 weeks ago had shown obstipation and he had been treated with some laxatives. He complains of some early satiety. He was at home and in the bathroom and he had a near syncopal event witnessed by his daughter. There was no noted seizure activity no incontinence. Please note he does have a history of alcohol consumption Hospital Course Charming 88-year-old gentleman admitted after near syncope at home. His work-up is demonstrated that his GI symptoms were due to multiple gastric ulcers. These were biopsied and the pathology is pending at this time. His H&H have been stable; he is symptomatically improved; his syncope was due to the GI hemorrhage. At this time he is doing well be followed up as an outpatient. Home Meds Active Scripts Metformin Hcl (Glucophage) 500 Mg Tablet, 500 MG PO PC BREAKFAST DINNER for 30 Days, #60 TAB 3 Refills Prov:OMKAR KUMAR MD 11/16/17 Linagliptin (TRADJENTA) 5 Mg Tablet, 5 MG PO DAILY for 30 Days, #30 TAB 3 Refills Prov:OMKAR KUMAR MD 11/16/17 Tamsulosin Hcl* (Flomax*) 0.4 Mg Cap.er.24h, 0.4 MG PO QHS for 30 Days, #30 CAP Prov:KAREL MENDEZ MD 08/25/17 Metoprolol Succinate* (Toprol XL*) 25 Mg Tab.sr.24h, 25 MG PO QAM for 30 Days, #30 TAB 4 Refills To replace carvedilol Prov:KAREL MENDEZ MD 08/25/17 Reported Medications Icosapent Ethyl (VASCEPA) 1 Gm Capsule, 1 GM PO BID, CAP 11/19/18 Saw/Vit E/Sod Marely/Lyc/Beta/Pyg (Prostate Health Caplet) 1 Each Tablet, 1 EACH PO DAILY, TAB 11/19/18 Lactobacillus Combination No.4 (Probiotic) 1 Each Capsule, 1 CAP PO DAILY, CAP 11/19/18 Gabapentin* (Gabapentin*) 300 Mg Capsule, 300 MG PO TID for 30 Days, #90 11/19/18 Furosemide* (Furosemide*) 20 Mg Tablet, 20 MG PO QAM for 30 Days, #30 11/19/18 Doxepin Hcl* (Doxepin Hcl*) 25 Mg Capsule, 25 MG PO QHS for 30 Days, #30 11/19/18 Triamcinolone Acetonide* (Kenalog*) 0.1%-15GM Oint, 1 APPLIC TOP BID, #1 EA 03/23/18 Hydroxyzine Hcl* (Hydroxyzine Hcl*) 10 Mg Tablet, 10 MG PO QHS PRN for ITCHING, #30 TAB 03/23/18 Ipratropium [place]* (Atrovent HFA*) 12.9 Gm Aer.w.adap, 2 PUFF INHALATION Q4H PRN for WHEEZING AND SOB, #1 INHALER 02/05/18 Amiodarone Hcl* (Amiodarone Hcl*) 200 Mg Tablet, 200 MG PO DAILY, #30 TAB 02/05/18 Levothyroxine Sodium* (Levothyroxine Sodium*) 100 Mcg Tablet, 100 MCG PO BEFORE BREAKFAST, #30 TAB 06/17/16 Apixaban* (Eliquis*) 2.5 Mg Tablet, 2.5 MG PO BID, TAB 06/17/16 Atorvastatin Calcium (Atorvastatin Calcium) 10 Mg Tablet, 10 MG PO QHS, #30 TAB 06/17/16 Pantoprazole* (Pantoprazole*) 40 Mg Tablet.dr, 40 MG PO DAILY, TAB 06/17/16 Discontinued Reported Medications Fluticasone-Vilanterol (Breo Ellipta Inhaler) 100-25 Mcg/Actuation Aer.pow.ba, 1 PUFF INHALATION DAILY, #1 INHALER 02/18/18 Icosapent Ethyl (Vascepa) 0.5 Gm Capsule, 0.5 GM PO, CAP 02/18/18 Azelastine Hcl* (Azelastine Hcl*) 0.05%-6 Ml Opht Drops, 1 DROP BOTH EYES BID, #1 EA 02/05/18 Hydrochlorothiazide* (Hydrochlorothiazide*) 12.5 Mg Tablet, 12.5 MG PO DAILY, #30 TAB 11/15/17 Montelukast Sodium* (Montelukast Sodium*) 10 Mg Tablet, 10 MG PO QHS, #30 TAB 06/17/16 Discontinued Scripts Docusate Sodium* (Colace*) 100 Mg Capsule, 100 MG PO TID, #30 CAP Prov:JERRY SPERAS S. 11/02/18 Dicyclomine HCl (Dicyclomine HCl) 10 Mg Capsule, 10 MG PO TID PRN for ABDOMINAL CRAMPING, #20 CAP Prov:JERRY SPEARS S. 11/02/18 Levofloxacin* (Levaquin*) 750 Mg Tablet, 750 MG PO DAILY for 5 Days, TAB Prov:VENKATA LOWRY 06/21/18 Follow-up Plan He will follow-up in my office in 1 week and with gastroenterology in 4 weeks Primary Care Provider Karel Mendez MD Time spent on discharge: > 30 minutes Pending Labs Laboratory Tests Test 11/20/18 08:40 11/20/18 13:32 11/20/18 17:28 11/20/18 20:25 Bedside 206 130 175 128 Glucose mg/dL (70-220) mg/dL (70-220) mg/dL (70-220) mg/dL (70-220) Test 11/21/18 05:21 White Blood 9.3 Count 10^3/ul (4.8-10 .8) Red Blood 2.76 Count 10^6/ul (4.70-6 .10) Hemoglobin 8.0 g/dl (14.0-18.0 ) Hematocrit 24.5 % (42.0-52.0) Mean 88.8 Corpuscular fl (82.0-101.0) Volume Mean 29.0 Corpuscular pg (29.0-33.0) Hemoglobin Mean 32.7 Corpuscular g/dl (32.0-37.0 Hemoglobin Conc ) ent Red Cell 13.5 Distribution % (11.5-14.5) Width Platelet Count 245 10^3/UL (140-41 5) Mean Platelet 8.4 Volume fl (7.4-10.4) Immature 0.900 Granulocytes % % (0.001-0.429) Neutrophils % 70.9 % (39.0-77.0) Lymphocytes % 10.1 % (15.0-51.0) Monocytes % 10.3 % (0.0-11.0) Eosinophils % 7.3 % (0.0-7.0) Basophils % 0.5 % (0.0-2.0) Nucleated Red 0.0 Blood Cells % /100WBC (0.0-0. 0) Immature 0.080 Granulocytes # 10^3/ul (0.0-0. 031) Neutrophils # 6.6 10^3/ul (1.6-7. 5) Lymphocytes # 0.9 10^3/ul (0.8-2. 9) Monocytes # 1.0 10^3/ul (0.3-0. 9) Eosinophils # 0.7 10^3/ul (0.0-0. 5) Basophils # 0.1 10^3/ul (0.0-0. 1) Nucleated Red 0.0 Blood Cells # 10^3/ul (0.0-0. 0) Copies To: CC: SHELLEY DONG MD ; KAREL MENDEZ MD Nov 21, 2018 07:06
[2018-11-21] MEDS ORDERED: PANT40TA4 PO (07:09)
[2018-11-21] MEDS ORDERED: SUCR1TAB35 PO (07:09)
[2018-11-21] MEDS ORDERED: GABA300C16 PO (07:09)
[2018-11-21] MEDS ORDERED: SOD FERRIC GLUC COMPLX 125 MG in SOD CHLORIDE 0.9% 100 ML IVPB ONE (08:00)
[2018-11-21] MEDS: INSULIN ASPART [NOVOLOG] 3 ML PEN SC SCH ×2 (08:09→11:51)
[2018-11-21] MEDS: metFORMIN 500 MG TAB PO SCH (08:52)
[2018-11-21] MEDS: LACTOBACILLUS RHAMNOSUS CAP PO SCH (08:52)
[2018-11-21] MEDS: LINAGLIPTIN 5 MG TABLET PO SCH (08:52)
[2018-11-21] MEDS: SUCRALFATE 1 GM TAB PO SCH (08:52)
[2018-11-21] MEDS: APIXABAN 5 MG TABLET PO SCH (08:53)
[2018-11-21] MEDS: AMIODARONE 200 MG TAB PO SCH (08:53)
[2018-11-21] MEDS: GABAPENTIN 300 MG CAP PO SCH (08:53)
[2018-11-21] MEDS: FUROSEMIDE 20 MG TAB PO SCH (08:53)
[2018-11-21] MEDS: PANTOPRAZOLE (EC) 40 MG TAB PO SCH (08:54)
[2018-11-21] MEDS: METOPROLOL (XL) 25 MG TAB PO SCH (08:54)
[2018-11-21] MEDS ORDERED: FISH OIL 1,000 MG CAP PO SCH (09:00)
== END 2018-11-21 11:52 | disposition home or self-care (01) | DRG 378 ==
LOC: E/R 22:02 → 6WM 11-19 01:13 → EDBEDREQ 11-19 09:07
PROVIDERS: ADMIT Internal Medicine; ATTEND Internal Medicine
PROC: 0DB68ZX Excision of Stomach, Via Natural or Artificial Opening Endoscopic, Diagnostic (ICD-10-PCS; principal; 2018-11-20 12:00)
PROC: 0DBC8ZX Excision of Ileocecal Valve, Via Natural or Artificial Opening Endoscopic, Diagnostic (ICD-10-PCS; 2018-11-20 12:00)
DX: K25.0 Acute gastric ulcer with hemorrhage (principal); M35.1 Other overlap syndromes; I50.22 Chronic systolic (congestive) heart failure; R55 Syncope and collapse; K57.31 Diverticulosis of large intestine without perforation or abscess with bleeding; K25.4 Chronic or unspecified gastric ulcer with hemorrhage; J44.9 Chronic obstructive pulmonary disease, unspecified; N40.1 Benign prostatic hyperplasia with lower urinary tract symptoms; I11.0 Hypertensive heart disease with heart failure; I34.0 Nonrheumatic mitral (valve) insufficiency; E78.2 Mixed hyperlipidemia; I48.2 Chronic atrial fibrillation; E03.9 Hypothyroidism, unspecified; K64.8 Other hemorrhoids; K59.09 Other constipation; I48.0 Paroxysmal atrial fibrillation; Z85.89 Personal history of malignant neoplasm of other organs and systems; Z95.0 Presence of cardiac pacemaker; Z79.01 Long term (current) use of anticoagulants; Z79.82 Long term (current) use of aspirin
CPT/HCPCS: 36415; 70450; 71045; 80048; 80053; 80061; 82150; 82533; 82550; 82553; 82962; 83036; 83690; 84484; 85025; 85610; 85730; 87081; 88305; 88312; 88342; 93005; 93306; 96374; 96375; 97162; J1200; J1720; J1815; J2270; J2405; J2916; J3411; J7120

== ENCOUNTER 2018-11-30 16:29 | Inpatient (IN) | payer MEDICARE, MEDICAID ==
[~2018-11-30] VITALS: Ht 160 cm; Wt 164.2 kg
[~2018-11-30 16:29] MED LIST changes: -AZEL6DRO2 BOTH EYES; -DICY10CA40 PO; -DOCU-144 PO; +DOXE25CA2 PO; -FLUT1AER INHALATION; +FURO20TA3 PO; +GABA300C16 PO; -HYDR12.58 PO; -ICOS0.5C PO; +ICOS1CAP PO; +LACT1CAP49 PO; -LEVO750T25 PO; -MONT10TA24 PO; +SAW/1TAB2 PO; +SUCR1TAB35 PO
--- NOTE | 2018-11-30 19:24 | ERD ---
ER Documentation Chief Complaint Chief Complaint SYNCOPE FELL & HIT BACK OF HEAD HPI The patient is a 88-year-old male presenting to the ER because he had a syncopal episode today around 4:30 PM, fell backward and hit the head on the ground, complains of occipital headache. He did not remember what happened, denies blurred vision, facial pain, neck pain, chest pain, dyspnea, abdominal pain, vomiting, dysuria, diarrhea, denies fecal/urine incontinence last tongue bite. He does not smoke nor drink Past medical history: CAD, diabetes mellitus, asthma, hypertension, history of GI bleed, history of lymphoma, history of Kaposi's sarcoma Past surgical history: Pacemaker, EGD and colonoscopy recently that showed PUD and hemorrhoids ROS All systems reviewed and are negative except as per history of present illness. Medications Home Meds Active Scripts Sucralfate (Carafate) 1 Gm Tablet, 1 GM PO QID for 30 Days, #120 TAB Prov:ALEJANDRO MENDEZ MD 11/21/18 Pantoprazole* (Pantoprazole*) 40 Mg Tablet.dr, 40 MG PO BID for 60 Days, #120 Prov:ALEJANDRO MENDEZ MD 11/21/18 Gabapentin* (Gabapentin*) 300 Mg Capsule, 600 MG PO TID for 30 Days, #120 CAP 2 Refills Prov:ALEJANDRO MENDEZ MD 11/21/18 Metformin Hcl (Glucophage) 500 Mg Tablet, 500 MG PO PC BREAKFAST DINNER for 30 Days, #60 TAB 3 Refills Prov:OMKAR KUMAR MD 11/16/17 Linagliptin (TRADJENTA) 5 Mg Tablet, 5 MG PO DAILY for 30 Days, #30 TAB 3 Refills Prov:OMKAR KUMAR MD 11/16/17 Tamsulosin Hcl* (Flomax*) 0.4 Mg Cap.er.24h, 0.4 MG PO QHS for 30 Days, #30 CAP Prov:ALEJANDRO MENDEZ MD 08/25/17 Metoprolol Succinate* (Toprol XL*) 25 Mg Tab.sr.24h, 25 MG PO QAM for 30 Days, #30 TAB 4 Refills To replace carvedilol Prov:ALEJANDRO MENDEZ MD 08/25/17 Reported Medications Icosapent Ethyl (VASCEPA) 1 Gm Capsule, 1 GM PO BID, CAP 11/19/18 Saw/Vit E/Sod Marely/Lyc/Beta/Pyg (Prostate Health Caplet) 1 Each Tablet, 1 EACH PO DAILY, TAB 11/19/18 Lactobacillus Combination No.4 (Probiotic) 1 Each Capsule, 1 CAP PO DAILY, CAP 11/19/18 Furosemide* (Furosemide*) 20 Mg Tablet, 20 MG PO QAM for 30 Days, #30 11/19/18 Doxepin Hcl* (Doxepin Hcl*) 25 Mg Capsule, 25 MG PO QHS for 30 Days, #30 11/19/18 Triamcinolone Acetonide* (Kenalog*) 0.1%-15GM Oint, 1 APPLIC TOP BID, #1 EA 03/23/18 Hydroxyzine Hcl* (Hydroxyzine Hcl*) 10 Mg Tablet, 10 MG PO QHS PRN for ITCHING, #30 TAB 03/23/18 Ipratropium [place]* (Atrovent HFA*) 12.9 Gm Aer.w.adap, 2 PUFF INHALATION Q4H PRN for WHEEZING AND SOB, #1 INHALER 02/05/18 Amiodarone Hcl* (Amiodarone Hcl*) 200 Mg Tablet, 200 MG PO DAILY, #30 TAB 02/05/18 Levothyroxine Sodium* (Levothyroxine Sodium*) 100 Mcg Tablet, 100 MCG PO BEFORE BREAKFAST, #30 TAB 06/17/16 Apixaban* (Eliquis*) 2.5 Mg Tablet, 2.5 MG PO BID, TAB 06/17/16 Atorvastatin Calcium (Atorvastatin Calcium) 10 Mg Tablet, 10 MG PO QHS, #30 TAB 06/17/16 Allergies Allergies: Coded Allergies: No Known Drug Allergy (Unverified Allergy, Unknown, 11/19/18) PMhx/Soc History of Surgery: Yes (bilateral knee sx, appedectomy, pacemaker, inguinal hernia ) Anesthesia Reaction: No Hx Neurological Disorder: Yes (syncope ) Hx Respiratory Disorders: Yes (asthma, pneumonia ) Hx Cardiac Disorders: Yes (htn, pacemaker) Hx Psychiatric Problems: No Hx Miscellaneous Medical Probl: Yes (cancer, CHF, GERD, high cholesterol, HTN, hypothyroid, asthma COPD overlap ) Hx Alcohol Use: No Hx Substance Use: No Hx Tobacco Use: No Smoking Status: Never smoker Physical Exam Vitals Vital Signs Date Temp Pulse Resp B/P (MAP) Pulse Ox O2 O2 Flow FiO2 Time Delivery Rate 11/30/18 96 20 102/57 96 Room Air 20:49 (72) 11/30/18 93 20 102/65 98 Room Air 20:45 (77) 11/30/18 90 21 110/56 98 Room Air 20:44 (74) 11/30/18 100.3 85 20 124/55 97 Room Air 18:38 (78) 11/30/18 100.0 91 18 100/50 97 16:38 (67) Physical Exam Const: No acute distress. Head: Atraumatic. No hematoma/laceration Eyes: Normal Conjunctiva. ENT: Normal External Ears, Nose and Mouth. Neck: Full range of motion. No meningismus. Resp: Clear to auscultation bilaterally. Cardio: Regular rate and rhythm. Abd: Soft, non distended, normal bowel sounds, non tender. Skin: No petechiae or rashes. Back: No midline or flank tenderness. Ext: No cyanosis, or edema. Neur: Awake and alert. No focal deficit Psych: Normal Mood and Affect. Result Diagram: 11/30/184 11/30/18 1824 Results 24 hrs Laboratory Tests Test 11/30/18 18:24 White Blood Count 10.1 10^3/ul Red Blood Count 3.26 10^6/ul Hemoglobin 9.3 g/dl Hematocrit 29.4 % Mean Corpuscular Volume 90.2 fl Mean Corpuscular Hemoglobin 28.5 pg Mean Corpuscular Hemoglobin Concent 31.6 g/dl Red Cell Distribution Width 13.6 % Platelet Count 290 10^3/UL Mean Platelet Volume 8.0 fl Immature Granulocytes % 0.800 % Neutrophils % 78.0 % Lymphocytes % 7.7 % Monocytes % 9.5 % Eosinophils % 3.6 % Basophils % 0.4 % Nucleated Red Blood Cells % 0.0 /100WBC Immature Granulocytes # 0.080 10^3/ul Neutrophils # 7.9 10^3/ul Lymphocytes # 0.8 10^3/ul Monocytes # 1.0 10^3/ul Eosinophils # 0.4 10^3/ul Basophils # 0.0 10^3/ul Nucleated Red Blood Cells # 0.0 10^3/ul Sodium Level 135 mmol/L Potassium Level 5.1 mmol/L Chloride Level 98 mmol/L Carbon Dioxide Level 32 mmol/L Anion Gap 5 Blood Urea Nitrogen 10 mg/dl Creatinine 0.77 mg/dl Est Glomerular Filtrat Rate mL/min mL/min Glucose Level 179 mg/dl Bedside Glucose 193 mg/dL Calcium Level 9.2 mg/dl Troponin I < 0.012 ng/ml Procedures/[place] [id number] Radiology Main Line: [phone] DIAGNOSTIC IMAGING REPORT Patient: BRINA YOUNG : 1930 Age: 88 Sex: M MR #: [id number] DOS: 11/30/18 1818 Ordering MD: OMKAR CHAN MD Location: E/R Room/Bed: PROCEDURE: CT Brain without contrast. CLINICAL INDICATION: Syncope, altered mental status, headache TECHNIQUE: A CT of the brain was performed on a multi-slice CT scanner utilizing axial imaging from the skull base through the vertex without IV co ntrast. Multiplanar reformatted images were made. Images were reviewed on a PACS workstation. The CTDIvol is 39.6 mGy and the DLP is 634.2 mGycm. One or more of the following dose reduction techniques were used: Automated exposure control. Adjustment of the mA and/or kV according to patient's size. Use of iterative reconstruction technique. DICOM images are available. COMPARISON: 11/18/2018 FINDINGS: The sulcal gyral pattern is unremarkable without evidence of effacement. The carmona-white matter differentiation is intact. Mild deep white matter ischemic changes are again seen. No masses, edema or shift is identified. There are no intraparenchymal or extraaxial fluid collections. The visualized paranasal sinuses and mastoid air cells are well-aerated. The skull base and calvarium are intact. IMPRESSION: 1. Study somewhat degraded by patient motion artifact. 2. No acute intracranial abnormalities are identified. 3. Mild deep white matter ischemic changes are again seen. RPTAT:AAJJ Physician Lorrie Date Time Electronically viewed and signed by Gm Feliciano, Physician on 11/30/2018 19:54 MC/ CC: OMKAR CHAN MD [phone] EKG: Read by emergency physician Rate/Rhythm: Normal Sinus Rhythm 86 beats/min QRS, ST, T-waves: No ST elevation, no T inversion, 1st AVB, artifacts Impression: Abnormal EKG Orthostatic vital signs negative MEDICAL MAKING DECISION: The patient is a 88-year-old male, presenting with acute syncope of unclear etiology. he is currently without any symptoms The differential diagnoses considered include but are not limited to arrhythmogenic right ventricular dysplasia, Brugada syndrome, left ventricular hypertrophy, pulmonary embolism, QT abnormality, [id number]. Departure Diagnosis: Primary Impression: Syncope Additional Impression: Anemia Condition: Stable Comments I discussed the findings with the patient. I discussed the patient with Dr Mendez at 8:45p , who was made aware of the lab, the treatment, the patient condition. The patient is admitted to [facility] Disclaimer: Inadvertent spelling and grammatical errors are likely due to EHR/dictation software use and do not reflect on the overall quality of patient care. Also, please note that the electronic time recorded on this note does not necessarily reflect the actual time of the patient encounter. OMKAR CHAN MD Nov 30, 2018 19:24
[2018-11-30] MEDS ORDERED: NACL 0.9% 3 ML SYG IV SCH (21:30)
[2018-11-30] MEDS ORDERED: DOCUSATE SODIUM 100 MG CAP PO PRN (21:30)
[2018-11-30] MEDS ORDERED: HYDROCODONE/APAP (5/325) TAB PO PRN (21:30)
[2018-11-30] MEDS ORDERED: NITROGLYCERIN (SL) 0.4 MG TAB SL PRN (21:30)
[2018-11-30] MEDS ORDERED: LORAZEPAM 0.5 MG TAB PO PRN (21:30)
[2018-11-30] MEDS ORDERED: ONDANSETRON 4 MG TAB PO PRN (21:30)
[2018-11-30] MEDS ORDERED: GLUCOSE GEL 15 GRAM TUBE PO PRN ×2 (23:00)
[2018-11-30] MEDS ORDERED: GLUCOSE GEL 15 GRAM TUBE BUCCAL PRN (23:00)
[2018-11-30] MEDS ORDERED: DEXTROSE 50% 50 ML SYRINGE IV PRN ×2 (23:00)
[2018-11-30] MEDS ORDERED: GLUCAGON 1 MG INJ IM PRN (23:00)
[2018-11-30 23:40] VITALS: Ht 160 cm; Wt 164.2 kg
[2018-12-01] VITALS (13 sets, daily range): BP systolic 115–126; BP diastolic 56–86; PULSE 72–87; RESP 18–19
[2018-12-01] MEDS ORDERED: PANTOPRAZOLE (EC) 40 MG TAB PO SCH (06:00)
[2018-12-01] MEDS: PANTOPRAZOLE (EC) 40 MG TAB PO SCH ×2 (06:15→17:40)
[2018-12-01] MEDS: LEVOTHYROXINE 100 MCG TAB PO SCH (06:16)
[2018-12-01] MEDS: metFORMIN 500 MG TAB PO SCH ×2 (08:22→17:38)
[2018-12-01] MEDS: SUCRALFATE 1 GM TAB PO SCH ×4 (08:22→21:29)
[2018-12-01] MEDS: LINAGLIPTIN 5 MG TABLET PO SCH (08:23)
[2018-12-01] MEDS: METOPROLOL (XL) 25 MG TAB PO SCH (08:23)
[2018-12-01] MEDS: GABAPENTIN 300 MG CAP PO SCH ×3 (08:23→21:29)
[2018-12-01] MEDS: LACTOBACILLUS RHAMNOSUS CAP PO SCH (08:24)
[2018-12-01] MEDS: APIXABAN 5 MG TABLET PO SCH ×2 (08:24→21:30)
[2018-12-01] MEDS: AMIODARONE 200 MG TAB PO SCH (08:24)
[2018-12-01] MEDS ORDERED: LYC PO SCH (09:00)
[2018-12-01] MEDS ORDERED: SAW PO SCH (09:00)
[2018-12-01] MEDS ORDERED: SOD SEL PO SCH (09:00)
[2018-12-01] MEDS ORDERED: NON-FORMULARY/PATIENT OWN MED (Icosapent Ethyl (Vascepa) 1 GM) PO SCH (09:00)
[2018-12-01] MEDS ORDERED: [UNRECOGNIZED DRUG - OTHER] PO SCH (09:00)
[2018-12-01] MEDS ORDERED: FISH OIL 1,000 MG CAP PO SCH (09:00)
[2018-12-01] MEDS ORDERED: VIT E PO SCH (09:00)
[2018-12-01] MEDS ORDERED: LACTOBACILLUS COMBINATION NO 4 PO SCH (09:00)
[2018-12-01] MEDS ORDERED: PYG PO SCH (09:00)
--- NOTE | 2018-12-01 18:03 | HP ---
Date/Time of Note Date/Time of Note DATE: 12/01/18 TIME: 17:55 Assessment/Plan VTE Prophylaxis Risk score (from [facility])>0 risk: 4 SCD applied (from [facility]): No SCD contraindicated: low risk/ambulating Pharmacological prophylaxis: apixaban Pharm contraindication: low risk/ambulating Lines/Catheters IV Catheter Type (from [facility] Saline Lock Assessment/Plan Problems: (1) Syncope Status: Acute Comment: This is recurrent syncope. Given that there might be an issue with his pacemaker even though the last time his monitoring did not show anything and we will have cardiology reevaluate him. Qualifiers: Syncope type: unspecified Qualified Codes: R55 - Syncope and collapse (2) Anemia Status: Acute Comment: Check iron levels and if appropriate give parenteral replacement therapy Qualifiers: Anemia type: iron deficiency Iron deficiency anemia type: chronic blood loss Qualified Codes: D50.0 - Iron deficiency anemia secondary to blood loss (chronic) (3) Asthma-COPD overlap syndrome Status: Chronic Comment: Maintain home medications (4) Paroxysmal atrial fibrillation Status: Chronic Comment: As above. Appears to be rate controlled (5) Systolic CHF with reduced left ventricular function, NYHA class 2 Status: Chronic Comment: On medical therapy (6) Mitral regurgitation Status: Chronic Comment: Noted. Qualifiers: Cardiac valve disease etiology: nonrheumatic Qualified Codes: I34.0 - Nonrheumatic mitral (valve) insufficiency (7) BPH NOS w ur obs/LUTS Status: Chronic Comment: Change tamsulosin over to alfuzocin (8) Essential hypertension Status: Chronic Comment: Adequate control, make sure or not overdoing it (9) Mixed hyperlipidemia Status: Chronic Comment: Continue with combination therapy (10) Hypothyroidism (acquired) Status: Chronic Comment: Continue replacement therapy (11) Kaposis sarcoma Status: Chronic Comment: Noted Result Diagram: 12/01/18 0603 12/01/18 0603 Results 24hrs Laboratory Tests Test 11/30/18 18:24 11/30/18 22:20 12/01/18 06:03 12/01/18 08:20 White Blood Count 10.1 8.3 Red Blood Count 3.26 L 3.22 L Hemoglobin 9.3 L 9.1 L Hematocrit 29.4 L 28.8 L Mean Corpuscular 90.2 89.4 Volume Mean Corpuscular 28.5 L 28.3 L Hemoglobin Mean Corpuscular 31.6 L 31.6 L Hemoglobin Concent Red Cell 13.6 13.5 Distribution Width Platelet Count 290 308 Mean Platelet Volume 8.0 8.6 Immature 0.800 H 0.700 H Granulocytes % Neutrophils % 78.0 H 69.2 Lymphocytes % 7.7 L 11.2 L Monocytes % 9.5 12.1 H Eosinophils % 3.6 6.4 Basophils % 0.4 0.4 Nucleated Red Blood 0.0 0.0 Cells % Immature 0.080 H 0.060 H Granulocytes # Neutrophils # 7.9 H 5.8 Lymphocytes # 0.8 0.9 Monocytes # 1.0 H 1.0 H Eosinophils # 0.4 0.5 Basophils # 0.0 0.0 Nucleated Red Blood 0.0 0.0 Cells # Sodium Level 135 136 Potassium Level 5.1 4.1 Chloride Level 98 100 Carbon Dioxide Level 32 H 29 Anion Gap 5 7 Blood Urea Nitrogen 10 10 Creatinine 0.77 0.61 Est Glomerular Filtrat Rate mL/min Glucose Level 179 179 Bedside Glucose 193 197 Calcium Level 9.2 8.8 Troponin I < 0.012 < 0.012 < 0.012 Creatine Kinase 51 63 Creatine Kinase 1.4 1.3 Index Creatinine Kinase MB 0.73 0.80 (Mass) Hemoglobin A1c 8.0 H Total Bilirubin 0.4 Direct Bilirubin 0.00 Indirect Bilirubin 0.4 Aspartate Amino 23 Transf (AST/SGOT) Alanine 21 Aminotransferase (AL T/SGPT) Alkaline Phosphatase 100 Total Protein 6.3 Albumin 3.2 L Globulin 3.10 Albumin/Globulin 1.03 Ratio CC: SHELLEY LINARES MD; Orlin Montez DO; BORIS MARTIN MD ; HPI/ROS Admit Date/Time Admit Date/Time Nov 30, 2018 at 20:47 Hx of Present Illness Charming 88-year-old [place] gentleman readmitted with his second episode of syncope within the last month. He has beta-mery and on amiodarone and has a pacemaker. As such interpretation of the orthostatics obtained in the emergency room must be tempered without knowledge. He had no prodrome but he reports his been having intermittent episodes. Please note he been seen by cardiology and is scheduled sometime the next 4 months for possible pacemaker battery replacement. ROS Constitutional: no complaints Eyes: no complaints ENT: no complaints Respiratory: no complaints Cardiovascular: no complaints Gastrointestinal: no complaints Genitourinary: no complaints Musculoskeletal: no complaints Skin: no complaints Neurologic: no complaints Endocrine: no complaints PMH/Family/Social Past Medical History Medical History: cancer (Kaposi's sarcoma and a non-HIV patient), congestive heart failure (Mitral regurgitation; heart failure with reduced ejection fraction;), coronary artery disease, high cholesterol, hypertension, hypothyroid, peptic ulcer disease, other (Chronic atrial fibrillation; pacemaker; asthma COPD overlap syndrome; 9 prostatic hypertrophy with lower urinary tract symptoms IL: Recurrent syncope; anemia) Medications Current Medications IV Flush (NS 3 ml) 3 ml PER PROTOCOL IV ; Start 11/30/18 at 21:30 Lorazepam (Ativan) 0.5 mg Q8H PRN PO .ANXIETY Last administered on 12/01/18at 02:36; Admin Dose 0.5 MG; Start 11/30/18 at 21:30 Ondansetron HCl (Zofran Tab) 4 mg Q6H PRN PO NAUSEA/VOMITING; Start 11/30/18 at 21:30 Nitroglycerin (Nitroglycerin (Sl Tab) 0.4 Mg) 1 tab Q5M PRN SL .CHEST PAIN; Start 11/30/18 at 21:30 Acetaminophen/ Hydrocodone Bitart (Ava (5/325)) 1 tab Q6H PRN PO .PAIN 4-6; Start 11/30/18 at 21:30 Docusate Sodium (Colace) 100 mg Q12H PRN PO .CONSTIPATION; Start 11/30/18 at 21:30 Amiodarone HCl (Cordarone) 200 mg DAILY PO Last administered on 12/01/18at 08:24; Admin Dose 200 MG; Start 12/01/18 at 09:00 Apixaban (Eliquis) 2.5 mg BID PO Last administered on 12/01/18at 08:24; Admin Dose 2.5 MG; Start 12/01/18 at 09:00 Atorvastatin Calcium (Lipitor) 10 mg QHS PO ; Start 12/01/18 at 21:00 Doxepin HCl ([place]) 25 mg QHS PO ; Start 12/01/18 at 21:00 Gabapentin (Neurontin) 600 mg TID PO Last administered on 12/01/18at 12:33; Admin Dose 600 MG; Start 12/01/18 at 09:00 Levothyroxine Sodium (Synthroid) 100 mcg BEFORE BREAKFAST PO Last administered on 12/01/18 06:16; Admin Dose 100 MCG; Start 12/01/18 at 07:00 Linagliptin (Tradjenta) 5 mg DAILY PO Last administered on 12/01/18 08:23; Admin Dose 5 MG; Start 12/01/18 at 09:00 Metformin HCl (Glucophage) 500 mg PC BREAKFAST DINNER PO Last administered on 12/01/18 17:38; Admin Dose 500 MG; Start 12/01/18 at 08:55 Metoprolol Succinate (Toprol Xl) 25 mg QAM PO Last administered on 12/01/18 08:23; Admin Dose 25 MG; Start 12/01/18 at 09:00 Pantoprazole (Protonix Tab) 40 mg BID@0600,1800 PO Last administered on 12/01/18 17:40; Admin Dose 40 MG; Start 12/01/18 at 06:00 Sucralfate (Carafate) 1 gm QID PO Last administered on 12/01/18 17:38; Admin Dose 1 GM; Start 12/01/18 at 09:00 Tamsulosin HCl (Flomax) 0.4 mg QHS PO ; Start 12/01/18 at 21:00 Fish Oil (Fish Oil) 1,000 mg BID PO Last administered on 12/01/18 08:22; Admin Dose 1,000 MG; Start 12/01/18 at 09:00 Lactobacillus Acidophilus/ Rhamnosus (Culturelle) 1 cap DAILY PO Last administered on 12/01/18 08:24; Admin Dose 1 CAP; Start 12/01/18 at 09:00 Miscellaneous Information 1 ea NOTE XX ; Start 11/30/18 at 23:00 Glucose (Glutose) 15 gm Q15M PRN PO DECREASED GLUCOSE; Start 11/30/18 at 23:00 Glucose (Glutose) 22.5 gm Q15M PRN PO DECREASED GLUCOSE; Start 11/30/18 at 23:00 Dextrose (D50w Syringe) 25 ml Q15M PRN IV DECREASED GLUCOSE; Start 11/30/18 at 23:00 Dextrose (D50w Syringe) 50 ml Q15M PRN IV DECREASED GLUCOSE; Start 11/30/18 at 23:00 Glucagon (Glucagen) 1 mg Q15M PRN IM DECREASED GLUCOSE; Start 11/30/18 at 23:00 Glucose (Glutose) 15 gm Q15M PRN BUCCAL DECREASED GLUCOSE; Start 11/30/18 at 23:00 Ferric Sodium Gluconate Complex 125 mg/Sodium Chloride 100 ml @ 100 mls/hr ONCE ONCE IVPB ; Start 12/01/18 at 20:00; Stop 12/01/18 at 20:59 Coded Allergies: No Known Drug Allergy (Unverified Allergy, Unknown, 11/19/18) Past Surgical History Past Surgical Hx: appendectomy, other Family History Significant Family History: diabetes, hypertension, lung disease Social History Alcohol Use: none Smoking Status: Never smoker Drug Use: none Exam/Review of Systems Vital Signs Vitals Vital Signs Date Temp Pulse Resp B/P (MAP) Pulse Ox O2 O2 Flow FiO2 Time Delivery Rate 12/01/18 75 16:14 12/01/18 97.8 18 121/58 98 12:00 (79) 12/01/18 Room Air 04:48 Intake and Output 11/30/18 11/30/18 12/01/18 1515:00 23:00 07:00 IntakeIntake Total 300 ml BalanceBalance 300 ml Exam Constitutional: alert, oriented Psych: anxiety Head: normocephalic, atraumatic Eyes: nl conjunctiva, EOMI, nl lids, nl sclera Neck: supple, non-tender Respiratory: clear to auscultation, normal air movement Cardiovascular: regular rate and rhythm, nl pulses Gastrointestinal: soft, nl liver, spleen, non-tender Musculoskeletal: nl extremities to inspection, nl gait and stance ALEJANDRO BEAVER MD Dec 01, 2018 18:03
[2018-12-01] MEDS: CYANOCOBALAMIN 500 MCG TAB PO SCH (19:05)
[2018-12-01] MEDS ORDERED: SOD FERRIC GLUC COMPLX 125 MG in SOD CHLORIDE 0.9% 100 ML IVPB ONE (20:00)
[2018-12-01] MEDS ORDERED: TAMSULOSIN (SR) 0.4 MG CAP PO SCH (21:00)
[2018-12-01] MEDS: DOXEPIN 25 MG CAP PO SCH (21:29)
[2018-12-01] MEDS: ATORVASTATIN 10 MG TAB PO SCH (21:29)
[2018-12-01] MEDS: FISH OIL 1,000 MG CAP PO SCH (21:29)
[2018-12-01] MEDS: ALFUZOSIN (SR) 10 MG TAB PO SCH (21:30)
[2018-12-02] VITALS (12 sets, daily range): BP systolic 99–121; BP diastolic 53–59; PULSE 76–100; RESP 16–19
[2018-12-02] MEDS: PANTOPRAZOLE (EC) 40 MG TAB PO SCH ×2 (06:41→17:01)
[2018-12-02] MEDS: LEVOTHYROXINE 100 MCG TAB PO SCH (06:41)
--- NOTE | 2018-12-02 06:46 | CONS ---
Assessment/Plan Assessment/Plan Hospital Course (Demo Recall) 1. Dizziness/presyncope: Probably medication related versus others. Doubt related to significant underlying arrhythmia. No significant arrhythmia has been noted in the pacemaker. We will interrogate the pacemaker to make sure there is no pacemaker malfunction. Consider decreasing or stopping Neurontin if felt appropriate. 2. History of sick sinus syndrome proximal atrial fibrillation status post permanent pacemaker We will interrogate the pacemaker today 3. Diabetes: Follow-up with Dr. Sanchez 4. Hypertension currently under control we will continue the beta-mery 5. History of thyroid disorder on amiodarone to be adjusted as per Dr. Sanchez's recommendation as needed. Currently on Synthroid 6. Dyslipidemia on a statin Thank you for his referral. We will continue to follow along with you ZAN WINSLOW MD [facility] Consultation Date/Type/Reason Admit Date/Time Nov 30, 2018 at 20:47 Date of Consultation: Dec 02, 2018 Type of Consult Cardiology Reason for Consultation syncope . sick sinus s/p PPM Requesting Provider: ALEJANDRO BEAVER MD Date/Time of Note DATE: 12/02/18 TIME: 06:40 Hx of Present Illness Interventional cardiology consultation note Chief complaint: Dizziness presyncope Reason for consult: Presyncope sick sinus syndrome History of present illness: Thank you for this referral. History was obtained from the patient from review of the chart. Patient also very well-known to me for past many years and office visits. This is a pleasant 88-year-old gentleman with history of sick sinus syndrome status post pacemaker who came to the emergency room with complaint of dizziness. Patient said that he loses his balance and he falls. He denies any nancy syncope to me but he said he has been getting dizzy and felt lightheaded. Gets worse when he stands up. He gets for that when he takes his Neurontin as well. He said that the Neurontin makes him sleepy. He is currently better is been in the monitor or more than 24 hours as with no significant arrhythmia noticed. He has been in demand pacemaker but overall mostly in sinus rhythm. Allergies: No known drug allergies Medications were reviewed as per medical reconciliation sheet Family history: No history of early coronary artery disease Social history: Past medical history: History of nonischemic cardiomyopathy sick sinus syndrome sternal permanent pacemaker possibly asthma thyroid disorder diabetes hypertension dyslipidemia Review of system: Patient denies all others except for above-mentioned Past Medical History Home Meds Active Scripts Sucralfate (Carafate) 1 Gm Tablet, 1 GM PO QID for 30 Days, #120 TAB Prov:ALEJANDRO BEAVER MD 11/21/18 Pantoprazole* (Pantoprazole*) 40 Mg Tablet.dr, 40 MG PO BID for 60 Days, #120 Prov:ALEJANDRO BEAVER MD 11/21/18 Gabapentin* (Gabapentin*) 300 Mg Capsule, 600 MG PO TID for 30 Days, #120 CAP 2 Refills Prov:ALEJANDRO BEAVER MD 11/21/18 Metformin Hcl (Glucophage) 500 Mg Tablet, 500 MG PO PC BREAKFAST DINNER for 30 Days, #60 TAB 3 Refills Prov:OMKAR KUMAR MD 11/16/17 Linagliptin (TRADJENTA) 5 Mg Tablet, 5 MG PO DAILY for 30 Days, #30 TAB 3 Refills Prov:OMKAR KUMAR MD 11/16/17 Tamsulosin Hcl* (Flomax*) 0.4 Mg Cap.er.24h, 0.4 MG PO QHS for 30 Days, #30 CAP Prov:ALEJANDRO BEAVER MD 08/25/17 Metoprolol Succinate* (Toprol XL*) 25 Mg Tab.sr.24h, 25 MG PO QAM for 30 Days, #30 TAB 4 Refills To replace carvedilol Prov:ALEJANDRO BEAVER MD 08/25/17 Reported Medications Icosapent Ethyl (VASCEPA) 1 Gm Capsule, 1 GM PO BID, CAP 11/19/18 Saw/Vit E/Sod Marely/Lyc/Beta/Pyg (Prostate Health Caplet) 1 Each Tablet, 1 EACH PO DAILY, TAB 11/19/18 Lactobacillus Combination No.4 (Probiotic) 1 Each Capsule, 1 CAP PO DAILY, CAP 11/19/18 Furosemide* (Furosemide*) 20 Mg Tablet, 20 MG PO QAM for 30 Days, #30 11/19/18 Doxepin Hcl* (Doxepin Hcl*) 25 Mg Capsule, 25 MG PO QHS for 30 Days, #30 11/19/18 Hydroxyzine Hcl* (Hydroxyzine Hcl*) 10 Mg Tablet, 10 MG PO QHS PRN for ITCHING, #30 TAB 03/23/18 Ipratropium [place]* (Atrovent HFA*) 12.9 Gm Aer.w.adap, 2 PUFF INHALATION Q4H PRN for WHEEZING AND SOB, #1 INHALER 02/05/18 Amiodarone Hcl* (Amiodarone Hcl*) 200 Mg Tablet, 200 MG PO DAILY, #30 TAB 02/05/18 Levothyroxine Sodium* (Levothyroxine Sodium*) 100 Mcg Tablet, 100 MCG PO BEFORE BREAKFAST, #30 TAB 06/17/16 Apixaban* (Eliquis*) 2.5 Mg Tablet, 2.5 MG PO BID, TAB 06/17/16 Atorvastatin Calcium (Atorvastatin Calcium) 10 Mg Tablet, 10 MG PO QHS, #30 TAB 06/17/16 Discontinued Reported Medications Triamcinolone Acetonide* (Kenalog*) 0.1%-15GM Oint, 1 APPLIC TOP BID, #1 EA 03/23/18 Medications Current Medications IV Flush (NS 3 ml) 3 ml PER PROTOCOL IV ; Start 11/30/18 at 21:30 Lorazepam (Ativan) 0.5 mg Q8H PRN PO .ANXIETY Last administered on 12/01/18at 02:36; Admin Dose 0.5 MG; Start 11/30/18 at 21:30 Ondansetron HCl (Zofran Tab) 4 mg Q6H PRN PO NAUSEA/VOMITING; Start 11/30/18 at 21:30 Nitroglycerin (Nitroglycerin (Sl Tab) 0.4 Mg) 1 tab Q5M PRN SL .CHEST PAIN; Start 11/30/18 at 21:30 Acetaminophen/ Hydrocodone Bitart ([place] (5/325)) 1 tab Q6H PRN PO .PAIN 4-6; Start 11/30/18 at 21:30 Docusate Sodium (Colace) 100 mg Q12H PRN PO .CONSTIPATION; Start 11/30/18 at 21:30 Amiodarone HCl (Cordarone) 200 mg DAILY PO Last administered on 12/01/18at 08:24; Admin Dose 200 MG; Start 12/01/18 at 09:00 Apixaban (Eliquis) 2.5 mg BID PO Last administered on 12/01/18at 21:30; Admin Dose 2.5 MG; Start 12/01/18 at 09:00 Atorvastatin Calcium (Lipitor) 10 mg QHS PO Last administered on 12/01/18 21:29; Admin Dose 10 MG; Start 12/01/18 at 21:00 Doxepin HCl (Sinequan) 25 mg QHS PO Last administered on 12/01/18 21:29; Admin Dose 25 MG; Start 12/01/18 at 21:00 Gabapentin (Neurontin) 600 mg TID PO Last administered on 12/01/18 21:29; Admin Dose 600 MG; Start 12/01/18 at 09:00 Levothyroxine Sodium (Synthroid) 100 mcg BEFORE BREAKFAST PO Last administered on 12/01/18 06:16; Admin Dose 100 MCG; Start 12/01/18 at 07:00 Linagliptin (Tradjenta) 5 mg DAILY PO Last administered on 12/01/18 08:23; Admin Dose 5 MG; Start 12/01/18 at 09:00 Metformin HCl (Glucophage) 500 mg PC BREAKFAST DINNER PO Last administered on 12/01/18 17:38; Admin Dose 500 MG; Start 12/01/18 at 08:55 Metoprolol Succinate (Toprol Xl) 25 mg QAM PO Last administered on 12/01/18 08:23; Admin Dose 25 MG; Start 12/01/18 at 09:00 Pantoprazole (Protonix Tab) 40 mg BID@0600,1800 PO Last administered on 12/01/18 17:40; Admin Dose 40 MG; Start 12/01/18 at 06:00; Stop 01/30/19 at 05:59 Sucralfate (Carafate) 1 gm QID PO Last administered on 12/01/18 21:29; Admin Dose 1 GM; Start 12/01/18 at 09:00; Stop 12/31/18 at 08:59 Lactobacillus Acidophilus/ Rhamnosus (Culturelle) 1 cap DAILY PO Last adminis tered on 12/01/18 08:24; Admin Dose 1 CAP; Start 12/01/18 at 09:00 Miscellaneous Information 1 ea NOTE XX ; Start 11/30/18 at 23:00 Glucose (Glutose) 15 gm Q15M PRN PO DECREASED GLUCOSE; Start 11/30/18 at 23:00 Glucose (Glutose) 22.5 gm Q15M PRN PO DECREASED GLUCOSE; Start 11/30/18 at 23:00 Dextrose (D50w Syringe) 25 ml Q15M PRN IV DECREASED GLUCOSE; Start 11/30/18 at 23:00 Dextrose (D50w Syringe) 50 ml Q15M PRN IV DECREASED GLUCOSE; Start 11/30/18 at 23:00 Glucagon (Glucagen) 1 mg Q15M PRN IM DECREASED GLUCOSE; Start 11/30/18 at 23:00 Glucose (Glutose) 15 gm Q15M PRN BUCCAL DECREASED GLUCOSE; Start 11/30/18 at 23:00 Fish Oil (Fish Oil) 2,000 mg BID PO Last administered on 12/01/18at 21:29; Admin Dose 2,000 MG; Start 12/01/18 at 21:00 Alfuzosin HCl (Uroxatral) 10 mg HS PO Last administered on 12/01/18at 21:30; Admin Dose 10 MG; Start 12/01/18 at 21:00 Cyanocobalamin (Vitamin B12) 1,000 mcg DAILY PO Last administered on 12/01/18at 19:05; Admin Dose 1,000 MCG; Start 12/01/18 at 18:30; Stop 12/08/18 at 18:29 Allergies: Coded Allergies: No Known Drug Allergy (Unverified Allergy, Unknown, 11/19/18) Past Surgical History Past Surgical Hx: appendectomy, other Social History Alcohol Use: none Smoking Status: Never smoker Drug Use: none Exam/Review of Systems Vital Signs Vitals Vital Signs Date Temp Pulse Resp B/P (MAP) Pulse Ox O2 O2 Flow FiO2 Time Delivery Rate 12/02/18 89 04:00 12/02/18 99.0 19 107/56 91 03:38 (73) 12/02/18 Room Air 00:00 Intake and Output 12/01/18 12/01/18 12/02/18 1515:00 23:00 07:00 IntakeIntake Total 800 ml OutputOutput Total 1800 ml BalanceBalance -1000 ml Exam Exam General: no acute distress HEENT: NC/AT. pupils are equal. round. NECK: NO JVD. no stridor. CV: RRR. systolic murmur; no gallop or rubs. PULM: no wheezing or rhonchi. GI: SOFT, NT, ND, no rebound or guarding Extremity: trace B/L LE edema. no clubbing. neuro: awake and alert, OX3. Psych: calm and pleasant rectal: deferred Review of the old chart showed an echocardiogram done November 19, 2018 showed: Normal left ventricular systolic function. Normal left ventricular cavity size. Mild concentric left ventricular hypertrophy. Ejection fraction is visually estimated at 60 %. Tissue Doppler/Mitral Doppler indices are consistent with impaired relaxation (Stage I diastolic dysfunction). Normal right ventricular size. Normal right ventricular systolic function. There is mild-moderate enlargement of left atrium. The right atrium is normal in size. The estimated Peak RVSP is 43 mmHg. There is mild tricuspid regurgitation. No significant valvular stenosis or regurgitation seen of remaining visualized valves. Normal pericardium with no significant pericardial effusion. Labs Result Diagram: 12/01/18 0603 12/01/18 0603 Results 24hrs Laboratory Tests Test 12/01/18 08:20 12/01/18 23:14 Bedside Glucose 197 Random Cortisol 8.4 Medications Medications Current Medications IV Flush (NS 3 ml) 3 ml PER PROTOCOL IV ; Start 11/30/18 at 21:30 Lorazepam (Ativan) 0.5 mg Q8H PRN PO .ANXIETY Last administered on 12/01/18at 02 :36; Admin Dose 0.5 MG; Start 11/30/18 at 21:30 Ondansetron HCl (Zofran Tab) 4 mg Q6H PRN PO NAUSEA/VOMITING; Start 11/30/18 at 21:30 Nitroglycerin (Nitroglycerin (Sl Tab) 0.4 Mg) 1 tab Q5M PRN SL .CHEST PAIN; Start 11/30/18 at 21:30 Acetaminophen/ Hydrocodone Bitart ([place] (5/325)) 1 tab Q6H PRN PO .PAIN 4-6; Start 11/30/18 at 21:30 Docusate Sodium (Colace) 100 mg Q12H PRN PO .CONSTIPATION; Start 11/30/18 at 21:30 Amiodarone HCl (Cordarone) 200 mg DAILY PO Last administered on 12/01/18at 08 :24; Admin Dose 200 MG; Start 12/01/18 at 09:00 Apixaban (Eliquis) 2.5 mg BID PO Last administered on 12/01/18at 21:30; Admin Dose 2.5 MG; Start 12/01/18 at 09:00 Atorvastatin Calcium (Lipitor) 10 mg QHS PO Last administered on 12/01/18 21:29; Admin Dose 10 MG; Start 12/01/18 at 21:00 Doxepin HCl (Sinequan) 25 mg QHS PO Last administered on 12/01/18 21:29; Admin Dose 25 MG; Start 12/01/18 at 21:00 Gabapentin (Neurontin) 600 mg TID PO Last administered on 12/01/18 21:29; Admin Dose 600 MG; Start 12/01/18 at 09:00 Levothyroxine Sodium (Synthroid) 100 mcg BEFORE BREAKFAST PO Last administered on 12/01/18 06:16; Admin Dose 100 MCG; Start 12/01/18 at 07:00 Linagliptin (Tradjenta) 5 mg DAILY PO Last administered on 12/01/18 08:23; Admin Dose 5 MG; Start 12/01/18 at 09:00 Metformin HCl (Glucophage) 500 mg PC BREAKFAST DINNER PO Last administered on 12/01/18 17:38; Admin Dose 500 MG; Start 12/01/18 at 08:55 Metoprolol Succinate (Toprol Xl) 25 mg QAM PO Last administered on 12/01/18 08:23; Admin Dose 25 MG; Start 12/01/18 at 09:00 Pantoprazole (Protonix Tab) 40 mg BID@0600,1800 PO Last administered on 12/01/18 17:40; Admin Dose 40 MG; Start 12/01/18 at 06:00; Stop 01/30/19 at 05:59 Sucralfate (Carafate) 1 gm QID PO Last administered on 12/01/18 21:29; Admin Dose 1 GM; Start 12/01/18 at 09:00; Stop 12/31/18 at 08:59 Lactobacillus Acidophilus/ Rhamnosus (Culturelle) 1 cap DAILY PO Last administered on 12/01/18 08:24; Admin Dose 1 CAP; Start 12/01/18 at 09:00 Miscellaneous Information 1 ea NOTE XX ; Start 11/30/18 at 23:00 Glucose (Glutose) 15 gm Q15M PRN PO DECREASED GLUCOSE; Start 11/30/18 at 23:00 Glucose (Glutose) 22.5 gm Q15M PRN PO DECREASED GLUCOSE; Start 11/30/18 at 23:00 Dextrose (D50w Syringe) 25 ml Q15M PRN IV DECREASED GLUCOSE; Start 11/30/18 at 23:00 Dextrose (D50w Syringe) 50 ml Q15M PRN IV DECREASED GLUCOSE; Start 11/30/18 at 23:00 Glucagon (Glucagen) 1 mg Q15M PRN IM DECREASED GLUCOSE; Start 11/30/18 at 23:00 Glucose (Glutose) 15 gm Q15M PRN BUCCAL DECREASED GLUCOSE; Start 11/30/18 at 23:00 Fish Oil (Fish Oil) 2,000 mg BID PO Last administered on 12/01/18at 21:29; Admin Dose 2,000 MG; Start 12/01/18 at 21:00 Alfuzosin HCl (Uroxatral) 10 mg HS PO Last administered on 12/01/18at 21:30; Admin Dose 10 MG; Start 12/01/18 at 21:00 Cyanocobalamin (Vitamin B12) 1,000 mcg DAILY PO Last administered on 12/01/18at 19:05; Admin Dose 1,000 MCG; Start 12/01/18 at 18:30; Stop 12/08/18 at 18:29 ZAN WINSLOW MD Dec 02, 2018 06:46
[2018-12-02] MEDS: GABAPENTIN 300 MG CAP PO SCH ×3 (09:47→21:12)
[2018-12-02] MEDS: APIXABAN 5 MG TABLET PO SCH ×2 (09:47→21:13)
[2018-12-02] MEDS: SUCRALFATE 1 GM TAB PO SCH ×2 (09:47→12:43)
[2018-12-02] MEDS: LACTOBACILLUS RHAMNOSUS CAP PO SCH (09:48)
[2018-12-02] MEDS: FISH OIL 1,000 MG CAP PO SCH ×2 (09:48→21:12)
[2018-12-02] MEDS: CYANOCOBALAMIN 500 MCG TAB PO SCH (09:48)
[2018-12-02] MEDS: LINAGLIPTIN 5 MG TABLET PO SCH (09:49)
[2018-12-02] MEDS: metFORMIN 500 MG TAB PO SCH ×2 (09:49→17:01)
[2018-12-02] MEDS: METOPROLOL (XL) 25 MG TAB PO SCH (10:09)
[2018-12-02] MEDS: AMIODARONE 200 MG TAB PO SCH (10:09)
--- NOTE | 2018-12-02 13:47 | PN ---
Date/Time of Note Date/Time of Note DATE: 12/02/18 TIME: 13:44 Assessment/Plan VTE Prophylaxis Risk score (from [facility])>0 risk: 6 SCD applied (from [facility]): No SCD contraindicated: low risk/ambulating Pharmacological prophylaxis: apixaban Pharm contraindication: low risk/ambulating Lines/Catheters IV Catheter Type (from [facility]): Saline Lock Assessment/Plan Problems: (1) Pacemaker Status: Chronic Comment: Awaiting interrogation of the device (2) Syncope Status: Acute Comment: No further symptoms. He had changed accounting machine servicer and his currently active accounting machine servicer will check and verify for the patient's peace of mind. Qualifiers: Syncope type: unspecified Qualified Codes: R55 - Syncope and collapse (3) Paroxysmal atrial fibrillation Status: Chronic Comment: Noted in rate controlled (4) Systolic CHF with reduced left ventricular function, NYHA class 2 Status: Chronic Comment: On medical therapy and stable for heart failure with reduced ejection fraction (5) Hypothyroidism (acquired) Status: Chronic Comment: Stable on replacement therapy (6) Peptic ulcer disease with hemorrhage Status: Acute Comment: Continue with proton pump inhibitor therapy.. Patient reports he does not like the sucralfate (7) Asthma-COPD overlap syndrome Status: Chronic Comment: Stable on treatment (8) BPH NOS w ur obs/LUTS Status: Chronic Comment: For the change from the tamsulosin to the alfuzocin his dizziness has improved. This could be a drug side effect. Regardless this is a safe transition to make (9) Kaposis sarcoma Status: Chronic Comment: Noted. Result Diagram: 12/01/18 0603 12/01/18 0603 Results 24hrs Laboratory Tests Test 12/01/18 23:14 12/02/18 07:52 12/02/18 07:58 Random Cortisol 8.4 14.2 Bedside Glucose 159 Subjective 24 Hr Interval Summary Free Text/Dictation Patient reports that every time he bent forward at the waist he would have issues with profound dizziness. Today after adjustment of medications he is not having those symptoms. Constitutional: no complaints Respiratory: no complaints Cardiovascular: no complaints Gastrointestinal: no complaints Genitourinary: no complaints Musculoskeletal: no complaints Exam/Review of Systems Exam Vitals Vital Signs Date Temp Pulse Resp B/P (MAP) Pulse Ox O2 O2 Flow FiO2 Time Delivery Rate 12/02/18 98.4 84 16 121/58 98 11:23 (79) 12/02/18 Room Air 00:00 Intake and Output 12/01/18 12/01/18 12/02/18 1515:00 23:00 07:00 IntakeIntake Total 800 ml 500 ml OutputOutput Total 1800 ml BalanceBalance -1000 ml 500 ml Constitutional: alert, oriented Respiratory: clear to auscultation, normal air movement Gastrointestinal: soft, nl liver, spleen, non-tender Results Results 24hrs Laboratory Tests Test 12/01/18 23:14 12/02/18 07:52 12/02/18 07:58 Random Cortisol 8.4 14.2 Bedside Glucose 159 Medications Medication Current Medications IV Flush (NS 3 ml) 3 ml PER PROTOCOL IV ; Start 11/30/18 at 21:30 Lorazepam (Ativan) 0.5 mg Q8H PRN PO .ANXIETY Last administered on 12/01/18at 02:36; Admin Dose 0.5 MG; Start 11/30/18 at 21:30 Ondansetron HCl (Zofran Tab) 4 mg Q6H PRN PO NAUSEA/VOMITING; Start 11/30/18 at 21:30 Nitroglycerin (Nitroglycerin (Sl Tab) 0.4 Mg) 1 tab Q5M PRN SL .CHEST PAIN; Start 11/30/18 at 21:30 Acetaminophen/ Hydrocodone Bitart ([place] (5/325)) 1 tab Q6H PRN PO .PAIN 4-6; Start 11/30/18 at 21:30 Docusate Sodium (Colace) 100 mg Q12H PRN PO .CONSTIPATION; Start 11/30/18 at 21:30 Amiodarone HCl (Cordarone) 200 mg DAILY PO Last administered on 12/02/18at 10:09; Admin Dose 200 MG; Start 12/01/18 at 09:00 Apixaban (Eliquis) 2.5 mg BID PO Last administered on 12/02/18at 09:47; Admin Dose 2.5 MG; Start 12/01/18 at 09:00 Atorvastatin Calcium (Lipitor) 10 mg QHS PO Last administered on 12/01/18at 21:29; Admin Dose 10 MG; Start 12/01/18 at 21:00 Doxepin HCl (Sinequan) 25 mg QHS PO Last administered on 12/01/18 21:29; Admin Dose 25 MG; Start 12/01/18 at 21:00 Gabapentin (Neurontin) 600 mg TID PO Last administered on 12/02/18 12:42; Admin Dose 600 MG; Start 12/01/18 at 09:00 Levothyroxine Sodium (Synthroid) 100 mcg BEFORE BREAKFAST PO Last administered on 12/02/18 06:41; Admin Dose 100 MCG; Start 12/01/18 at 07:00 Linagliptin (Tradjenta) 5 mg DAILY PO Last administered on 12/02/18 09:49; Admin Dose 5 MG; Start 12/01/18 at 09:00 Metformin HCl (Glucophage) 500 mg PC BREAKFAST DINNER PO Last administered on 12/02/18 09:49; Admin Dose 500 MG; Start 12/01/18 at 08:55 Metoprolol Succinate (Toprol Xl) 25 mg QAM PO Last administered on 12/02/18 10:09; Admin Dose 25 MG; Start 12/01/18 at 09:00 Pantoprazole (Protonix Tab) 40 mg BID@0600,1800 PO Last administered on 12/02/18 06:41; Admin Dose 40 MG; Start 12/01/18 at 06:00; Stop 01/30/19 at 05:59 Sucralfate (Carafate) 1 gm QID PO Last administered on 12/02/18 12:43; Admin Dose 1 GM; Start 12/01/18 at 09:00; Stop 12/31/18 at 08:59 Lactobacillus Acidophilus/ Rhamnosus (Culturelle) 1 cap DAILY PO Last administered on 12/02/18 09:48; Admin Dose 1 CAP; Start 12/01/18 at 09:00 Miscellaneous Information 1 ea NOTE XX ; Start 11/30/18 at 23:00 Glucose (Glutose) 15 gm Q15M PRN PO DECREASED GLUCOSE; Start 11/30/18 at 23:00 Glucose (Glutose) 22.5 gm Q15M PRN PO DECREASED GLUCOSE; Start 11/30/18 at 23:00 Dextrose (D50w Syringe) 25 ml Q15M PRN IV DECREASED GLUCOSE; Start 11/30/18 at 23:00 Dextrose (D50w Syringe) 50 ml Q15M PRN IV DECREASED GLUCOSE; Start 11/30/18 at 23:00 Glucagon (Glucagen) 1 mg Q15M PRN IM DECREASED GLUCOSE; Start 11/30/18 at 23:00 Glucose (Glutose) 15 gm Q15M PRN BUCCAL DECREASED GLUCOSE; Start 11/30/18 at 23:00 Fish Oil (Fish Oil) 2,000 mg BID PO Last administered on 12/02/18at 09:48; Admin Dose 2,000 MG; Start 12/01/18 at 21:00 Alfuzosin HCl (Uroxatral) 10 mg HS PO Last administered on 12/01/18at 21:30; Admin Dose 10 MG; Start 12/01/18 at 21:00 Cyanocobalamin (Vitamin B12) 1,000 mcg DAILY PO Last administered on 12/02/18at 09:48; Admin Dose 1,000 MCG; Start 12/01/18 at 18:30; Stop 12/08/18 at 18:29 Ferric Sodium Gluconate Complex 125 mg/Sodium Chloride 100 ml @ 100 mls/hr ONCE ONCE IVPB ; Start 12/02/18 at 14:00; Stop 12/02/18 at 14:59 ALEJANDRO BEAVER MD Dec 02, 2018 13:47
[2018-12-02] MEDS ORDERED: SOD FERRIC GLUC COMPLX 125 MG in SOD CHLORIDE 0.9% 100 ML IVPB ONE (14:00)
[2018-12-02] MEDS: DOXEPIN 25 MG CAP PO SCH (21:13)
[2018-12-02] MEDS: ATORVASTATIN 10 MG TAB PO SCH (21:13)
[2018-12-02] MEDS: ALFUZOSIN (SR) 10 MG TAB PO SCH (21:13)
[2018-12-03] VITALS (9 sets, daily range): BP systolic 98–111; BP diastolic 5–59; PULSE 80–93; RESP 16–19
[2018-12-03] MEDS: PANTOPRAZOLE (EC) 40 MG TAB PO SCH ×2 (06:32→17:49)
[2018-12-03] MEDS: LEVOTHYROXINE 100 MCG TAB PO SCH (06:32)
[2018-12-03] MEDS: metFORMIN 500 MG TAB PO SCH (08:18)
--- NOTE | 2018-12-03 08:29 | CONS ---
Consult Date/Type/Reason Admit Date/Time Dec 02, 2018 at 10:09 Initial Consult Date 12/02/18 Type of Consultation: CV Requesting Provider: ALEJANDRO MENDEZ MD Date/Time of Note DATE: 12/03/18 TIME: 08:25 Subjective CV FOLLOW UP NOTE S Discussed with the staff and telemetry was reviewed. Patient remains sinus rhythm with demand pacemaker intermittently. No chest pain or pressure. Denies dizziness to me no syncope no presyncope. Objective: General: no acute distress HEENT: NC/AT. pupils are equal. round. NECK: NO JVD. no stridor. CV: RRR. systolic murmur; no gallop or rubs. PULM: no wheezing or rhonchi. GI: SOFT, NT, ND, no rebound or guarding Extremity: trace B/L LE edema. no clubbing. neuro: awake and alert, OX3. Psych: calm and pleasant rectal: deferred Review of the old chart showed an echocardiogram done November 19, 2018 showed: Normal left ventricular systolic function. Normal left ventricular cavity size. Mild concentric left ventricular hypertrophy. Ejection fraction is visually estimated at 60 %. Tissue Doppler/Mitral Doppler indices are consistent with impaired relaxation (Stage I diastolic dysfunction). Normal right ventricular size. Normal right ventricular systolic function. There is mild-moderate enlargement of left atrium. The right atrium is normal in size. The estimated Peak RVSP is 43 mmHg. There is mild tricuspid regurgitation. No significant valvular stenosis or regurgitation seen of remaining visualized valves. Normal pericardium with no significant pericardial effusion. Objective Vitals Vital Signs Date Temp Pulse Resp B/P (MAP) Pulse Ox O2 O2 Flow FiO2 Time Delivery Rate 12/03/18 99.0 82 18 98/49 (65) 90 07:28 12/03/18 Room Air 04:09 Intake and Output 12/02/18 12/02/18 12/03/18 1515:00 23:00 07:00 IntakeIntake Total 1200 ml 600 ml OutputOutput Total 450 ml BalanceBalance 750 ml 600 ml Results/Medications Result Diagram: 12/01/1860212/01/18602 Results 24 hrs Laboratory Tests Test 12/02/18 17:00 Bedside Glucose 148 Home Meds Active Scripts Sucralfate (Carafate) 1 Gm Tablet, 1 GM PO QID for 30 Days, #120 TAB Prov:ALEJANDRO MENDEZ MD 11/21/18 Pantoprazole* (Pantoprazole*) 40 Mg Tablet.dr, 40 MG PO BID for 60 Days, #120 Prov:ALEJANDRO MENDEZ MD 11/21/18 Gabapentin* (Gabapentin*) 300 Mg Capsule, 600 MG PO TID for 30 Days, #120 CAP 2 Refills Prov:ALEJANDRO MENDEZ MD 11/21/18 Metformin Hcl (Glucophage) 500 Mg Tablet, 500 MG PO PC BREAKFAST DINNER for 30 Days, #60 TAB 3 Refills Prov:OMKAR KUMAR MD 11/16/17 Linagliptin (TRADJENTA) 5 Mg Tablet, 5 MG PO DAILY for 30 Days, #30 TAB 3 Refi lls Prov:OMKAR KUMAR MD 11/16/17 Tamsulosin Hcl* (Flomax*) 0.4 Mg Cap.er.24h, 0.4 MG PO QHS for 30 Days, #30 CAP Prov:ALEJANDRO MENDEZ MD 08/25/17 Metoprolol Succinate* (Toprol XL*) 25 Mg Tab.sr.24h, 25 MG PO QAM for 30 Days, #30 TAB 4 Refills To replace carvedilol Prov:ALEJANDRO MENDEZ MD 08/25/17 Reported Medications Icosapent Ethyl (VASCEPA) 1 Gm Capsule, 1 GM PO BID, CAP 11/19/18 Saw/Vit E/Sod Marely/Lyc/Beta/Pyg (Prostate Health Caplet) 1 Each Tablet, 1 EACH PO DAILY, TAB 11/19/18 Lactobacillus Combination No.4 (Probiotic) 1 Each Capsule, 1 CAP PO DAILY, CAP 11/19/18 Furosemide* (Furosemide*) 20 Mg Tablet, 20 MG PO QAM for 30 Days, #30 11/19/18 Doxepin Hcl* (Doxepin Hcl*) 25 Mg Capsule, 25 MG PO QHS for 30 Days, #30 11/19/18 Hydroxyzine Hcl* (Hydroxyzine Hcl*) 10 Mg Tablet, 10 MG PO QHS PRN for ITCHING, #30 TAB 03/23/18 Ipratropium [place]* (Atrovent HFA*) 12.9 Gm Aer.w.adap, 2 PUFF INHALATION Q4H PRN for WHEEZING AND SOB, #1 INHALER 02/05/18 Amiodarone Hcl* (Amiodarone Hcl*) 200 Mg Tablet, 200 MG PO DAILY, #30 TAB 02/05/18 Levothyroxine Sodium* (Levothyroxine Sodium*) 100 Mcg Tablet, 100 MCG PO BEFORE BREAKFAST, #30 TAB 06/17/16 Apixaban* (Eliquis*) 2.5 Mg Tablet, 2.5 MG PO BID, TAB 06/17/16 Atorvastatin Calcium (Atorvastatin Calcium) 10 Mg Tablet, 10 MG PO QHS, #30 TAB 06/17/16 Discontinued Reported Medications Triamcinolone Acetonide* (Kenalog*) 0.1%-15GM Oint, 1 APPLIC TOP BID, #1 EA 03/23/18 Medications Current Medications IV Flush (NS 3 ml) 3 ml PER PROTOCOL IV ; Start 11/30/18 at 21:30 Lorazepam (Ativan) 0.5 mg Q8H PRN PO .ANXIETY Last administered on 12/01/18at 02:36; Admin Dose 0.5 MG; Start 11/30/18 at 21:30 Ondansetron HCl (Zofran Tab) 4 mg Q6H PRN PO NAUSEA/VOMITING; Start 11/30/18 at 21:30 Nitroglycerin (Nitroglycerin (Sl Tab) 0.4 Mg) 1 tab Q5M PRN SL .CHEST PAIN; Start 11/30/18 at 21:30 Acetaminophen/ Hydrocodone Bitart (Marks (5/325)) 1 tab Q6H PRN PO .PAIN 4-6 Last administered on 12/02/18at 13:51; Admin Dose 1 TAB; Start 11/30/18 at 21:30 Docusate Sodium (Colace) 100 mg Q12H PRN PO .CONSTIPATION; Start 11/30/18 at 21:30 Amiodarone HCl (Cordarone) 200 mg DAILY PO Last administered on 12/02/18at 10:09; Admin Dose 200 MG; Start 12/01/18 at 09:00 Apixaban (Eliquis) 2.5 mg BID PO Last administered on 12/02/18at 21:13; Admin Dose 2.5 MG; Start 12/01/18 at 09:00 Atorvastatin Calcium (Lipitor) 10 mg QHS PO Last administered on 12/02/18 21:13; Admin Dose 10 MG; Start 12/01/18 at 21:00 Doxepin HCl (Sinequan) 25 mg QHS PO Last administered on 12/02/18 21:13; Admin Dose 25 MG; Start 12/01/18 at 21:00 Gabapentin (Neurontin) 600 mg TID PO Last administered on 12/02/18 21:12; Admin Dose 600 MG; Start 12/01/18 at 09:00 Levothyroxine Sodium (Synthroid) 100 mcg BEFORE BREAKFAST PO Last administered on 12/03/18 06:32; Admin Dose 100 MCG; Start 12/01/18 at 07:00 Linagliptin (Tradjenta) 5 mg DAILY PO Last administered on 12/02/18 09:49; Admin Dose 5 MG; Start 12/01/18 at 09:00 Metformin HCl (Glucophage) 500 mg PC BREAKFAST DINNER PO Last administered on 12/03/18 08:18; Admin Dose 500 MG; Start 12/01/18 at 08:55 Metoprolol Succinate (Toprol Xl) 25 mg QAM PO Last administered on 12/02/18 10:09; Admin Dose 25 MG; Start 12/01/18 at 09:00 Pantoprazole (Protonix Tab) 40 mg BID@0600,1800 PO Last administered on 12/03/18 06:32; Admin Dose 40 MG; Start 12/01/18 at 06:00; Stop 01/30/19 at 05:59 Lactobacillus Acidophilus/ Rhamnosus (Culturelle) 1 cap DAILY PO Last administered on 12/02/18 09:48; Admin Dose 1 CAP; Start 12/01/18 at 09:00 Miscellaneous Information 1 ea NOTE XX ; Start 11/30/18 at 23:00 Glucose (Glutose) 15 gm Q15M PRN PO DECREASED GLUCOSE; Start 11/30/18 at 23:00 Glucose (Glutose) 22.5 gm Q15M PRN PO DECREASED GLUCOSE; Start 11/30/18 at 23:00 Dextrose (D50w Syringe) 25 ml Q15M PRN IV DECREASED GLUCOSE; Start 11/30/18 at 23:00 Dextrose (D50w Syringe) 50 ml Q15M PRN IV DECREASED GLUCOSE; Start 11/30/18 at 23:00 Glucagon (Glucagen) 1 mg Q15M PRN IM DECREASED GLUCOSE; Start 11/30/18 at 23:00 Glucose (Glutose) 15 gm Q15M PRN BUCCAL DECREASED GLUCOSE; Start 11/30/18 at 23:00 Fish Oil (Fish Oil) 2,000 mg BID PO Last administered on 12/02/18at 21:12; Admin Dose 2,000 MG; Start 12/01/18 at 21:00 Alfuzosin HCl (Uroxatral) 10 mg HS PO Last administered on 12/02/18at 21:13; Admin Dose 10 MG; Start 12/01/18 at 21:00 Cyanocobalamin (Vitamin B12) 1,000 mcg DAILY PO Last administered on 12/02/18at 09:48; Admin Dose 1,000 MCG; Start 12/01/18 at 18:30; Stop 12/08/18 at 18:29 Assessment/Plan Hospital Course (Demo Recall) 1. Dizziness/presyncope: Probably medication related versus others. No significant arrhythmia has been noted in the pacemaker. Pacemaker was interrogated 12/02/2018 and personally reviewed. It showed normal functioning pacemaker. However by that he is about 1 months to [facility] Consider decreasing or stopping Neurontin if felt appropriate. 2. History of sick sinus syndrome proximal atrial fibrillation status post permanent pacemaker Pacemaker interrogation shows 1 month at [facility]. Patient has been followed up by me for many years however recently due to transportation issues is not being followed by me anymore. It appears that he is being followed by Dr. arellano however. Patient apparently has had follow-up as scheduled. Follow-up with Dr. Stapleton was noted to have the pacemaker generator change after the month once the battery is at [facility] 3. Diabetes: Follow-up with Dr. Mendez 4. Hypertension currently hypotensive slightly. I would decrease the Toprol-XL given his relative hypo-tension and dizziness 5. History of thyroid disorder on amiodarone to be adjusted as per Dr. Mendez's recommendation as needed. Currently on Synthroid 6. Dyslipidemia on a statin Thank you for his referral. We will continue to follow along with you ZAN WINSLOW MD [facility] ZAN WINSLOW MD Dec 03, 2018 08:29
[2018-12-03] MEDS: FISH OIL 1,000 MG CAP PO SCH (09:08)
[2018-12-03] MEDS: METOPROLOL (XL) 25 MG TAB PO SCH (09:10)
[2018-12-03] MEDS: LACTOBACILLUS RHAMNOSUS CAP PO SCH (09:11)
[2018-12-03] MEDS: GABAPENTIN 300 MG CAP PO SCH ×2 (09:11→13:03)
[2018-12-03] MEDS: APIXABAN 5 MG TABLET PO SCH (09:11)
[2018-12-03] MEDS: CYANOCOBALAMIN 500 MCG TAB PO SCH (09:11)
[2018-12-03] MEDS: LINAGLIPTIN 5 MG TABLET PO SCH (09:11)
[2018-12-03] MEDS: AMIODARONE 200 MG TAB PO SCH (09:12)
--- NOTE | 2018-12-03 17:52 | PDOCDIS ---
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 Dong to follow-up with ulcers in 3 to 4 weeks; cardiology follow-up for pacemaker approaching end of battery life in the next month; my office in 3 weeks ALEJANDRO BEAVER MD Dec 03, 2018 17:52
--- NOTE | 2018-12-03 17:52 | DS ---
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 Bingham Procedures CT scan brain; cardiac monitoring Hx of Present Illness Kamilla 88-year-old [place] gentleman readmitted with his second episode of syncope within the last month. He has beta-mery and on amiodarone and has a pacemaker. As such interpretation of the orthostatics obtained in the emergency room must be tempered without knowledge. He had no prodrome but he reports his been having intermittent episodes. Please note he been seen by cardiology and is scheduled sometime the next 4 months for possible pacemaker battery replacement. Hospital Course Kamilla 88-year-old gentleman admitted with a second episode of syncope with closed head trauma. He will underwent repeat evaluation. It was the opinion of the clinical quality assurance associate and ultimately by myself there is having side effects to medications. The 2 most likely culprits were tamsulosin and gabapentin. I am much more inclined to label the problem is being tamsulosin as his symptoms fully resolved with cessation of this and transition over to alfuzosin. However we have also decreased the gabapentin because we have less medical indication for it. Home Meds Active Scripts Sucralfate (Carafate) 1 Gm Tablet, 1 GM PO QID for 30 Days, #120 TAB Prov:KAREL MENDEZ MD 11/21/18 Pantoprazole* (Pantoprazole*) 40 Mg Tablet.dr 40 MG PO BID for 60 Days, #120 Prov:KAREL MENDEZ MD 11/21/18 Gabapentin* (Gabapentin*) 300 Mg Capsule, 600 MG PO TID for 30 Days, #120 CAP 2 Refills Prov:KAREL MENDEZ MD 11/21/18 Metformin Hcl (Glucophage) 500 Mg Tablet, 500 MG PO PC BREAKFAST DINNER for 30 Days, #60 TAB 3 Refills Prov:OMKAR KUMAR MD 11/16/17 Linagliptin (TRADJENTA) 5 Mg Tablet, 5 MG PO DAILY for 30 Days, #30 TAB 3 Refills Prov:OMKAR KUMAR MD 11/16/17 Tamsulosin Hcl* (Flomax*) 0.4 Mg Cap.er.24h, 0.4 MG PO QHS for 30 Days, #30 CAP Prov:KAREL MENDEZ MD 08/25/17 Metoprolol Succinate* (Toprol XL*) 25 Mg Tab.sr.24h, 25 MG PO QAM for 30 Days, #30 TAB 4 Refills To replace carvedilol Prov:KAREL MENDEZ MD 08/25/17 Reported Medications Icosapent Ethyl (VASCEPA) 1 Gm Capsule, 1 GM PO BID, CAP 11/19/18 Saw/Vit E/Sod Marely/Lyc/Beta/Pyg (Prostate Health Caplet) 1 Each Tablet, 1 EACH PO DAILY, TAB 11/19/18 Lactobacillus Combination No.4 (Probiotic) 1 Each Capsule, 1 CAP PO DAILY, CAP 11/19/18 Furosemide* (Furosemide*) 20 Mg Tablet, 20 MG PO QAM for 30 Days, #30 11/19/18 Doxepin Hcl* (Doxepin Hcl*) 25 Mg Capsule, 25 MG PO QHS for 30 Days, #30 11/19/18 Hydroxyzine Hcl* (Hydroxyzine Hcl*) 10 Mg Tablet, 10 MG PO QHS PRN for ITCHING, #30 TAB 03/23/18 Ipratropium [place]* (Atrovent HFA*) 12.9 Gm Aer.w.adap, 2 PUFF INHALATION Q4H PRN for WHEEZING AND SOB, #1 INHALER 02/05/18 Amiodarone Hcl* (Amiodarone Hcl*) 200 Mg Tablet, 200 MG PO DAILY, #30 TAB 02/05/18 Levothyroxine Sodium* (Levothyroxine Sodium*) 100 Mcg Tablet, 100 MCG PO BEFORE BREAKFAST, #30 TAB 06/17/16 Apixaban* (Eliquis*) 2.5 Mg Tablet, 2.5 MG PO BID, TAB 06/17/16 Atorvastatin Calcium (Atorvastatin Calcium) 10 Mg Tablet, 10 MG PO QHS, #30 TAB 06/17/16 Discontinued Reported Medications Triamcinolone Acetonide* (Kenalog*) 0.1%-15GM Oint, 1 APPLIC TOP BID, #1 EA 03/23/18 Follow-up Plan Gastroenterology with Dr. Dong to follow-up with ulcers in 3 to 4 weeks; cardiology follow-up for pacemaker approaching end of battery life in the next month; my office in 3 weeks Primary Care Provider Karel Mendez MD Time spent on discharge: > 30 minutes Copies To: CC: SHELLEY DONG MD; BORIS MARTIN MD; ZAN BINGHAM MD ; KAREL MENDEZ MD Dec 03, 2018 17:52
[2018-12-03] MEDS ORDERED: ALFU10TA2 PO (17:55)
[2018-12-03] MEDS ORDERED: GABA300C16 PO ×2 (17:55)
[2018-12-03] MEDS ORDERED: GABAPENTIN 300 MG CAP PO SCH (21:00)
[2018-12-04] MEDS ORDERED: GABAPENTIN 300 MG CAP PO SCH (09:00)
== END 2018-12-03 18:55 | disposition home or self-care (01) | DRG 312 ==
LOC: E/R 16:29 → TEL 20:47 → OBSVTOIN 12-02 10:09
PROVIDERS: ADMIT Internal Medicine; ATTEND Internal Medicine
DX: R55 Syncope and collapse (principal); C46.9 Kaposi's sarcoma, unspecified; I50.22 Chronic systolic (congestive) heart failure; I48.0 Paroxysmal atrial fibrillation; I11.0 Hypertensive heart disease with heart failure; E11.9 Type 2 diabetes mellitus without complications; D50.0 Iron deficiency anemia secondary to blood loss (chronic); J44.9 Chronic obstructive pulmonary disease, unspecified; T44.6X5A Adverse effect of alpha-adrenoreceptor antagonists, initial encounter; T42.6X5A Adverse effect of other antiepileptic and sedative-hypnotic drugs, initial encounter; I25.10 Atherosclerotic heart disease of native coronary artery without angina pectoris; K21.9 Gastro-esophageal reflux disease without esophagitis; E78.5 Hyperlipidemia, unspecified; E03.9 Hypothyroidism, unspecified; K40.90 Unilateral inguinal hernia, without obstruction or gangrene, not specified as recurrent; N40.1 Benign prostatic hyperplasia with lower urinary tract symptoms; K25.7 Chronic gastric ulcer without hemorrhage or perforation; Y92.019 Unspecified place in single-family (private) house as the place of occurrence of the external cause; Z79.84 Long term (current) use of oral hypoglycemic drugs; Z95.0 Presence of cardiac pacemaker; Z85.72 Personal history of non-Hodgkin lymphomas
CPT/HCPCS: 36415; 70450; 80048; 80053; 82533; 82550; 82553; 82728; 82962; 83036; 83540; 84484; 85025; 87086; 93005; 97110; 97116; 97161; 97166; G0378; J2916

== ENCOUNTER 2019-01-29 05:54 | Day surgery (SDC) | payer MEDICARE, OTHER ==
[~2019-01-29] VITALS: Ht 157.5 cm; Wt 66.6 kg
[~2019-01-29 05:54] MED LIST changes: +ALBU8.5H8 INH; +ALFU10TA2 PO; -ATOR10TA65 PO; +AZEL23SP NASAL; +CARAS PO; +DICY10CA40 PO; +DOCU250C58 PO; +DOCUSATE; -HYDR-3029 PO; +IPRA15SP NS; -KEN1O TOP; -LINA5TAB PO; -METF500T PO; +MONT10TA24 PO; +MONTELUKAST; -SUCR1TAB35 PO; -TAMS-14 PO; +UMEC1DIS INHALATION; +[UNRECOGNIZED DRUG - OTHER]
[2019-01-29 07:01] VITALS: Ht 157.5 cm; Wt 66.6 kg
[2019-01-29 09:25] VITALS: BP 94/55; PULSE 75; RESP 20
== END 2019-01-29 12:15 | disposition home or self-care (01) ==
LOC: SDS 05:54
PROVIDERS: ATTEND Internal Medicine Interventional Cardiology
DX: I49.5 Sick sinus syndrome (principal); I42.9 Cardiomyopathy, unspecified; E11.9 Type 2 diabetes mellitus without complications; I10 Essential (primary) hypertension
CPT/HCPCS: 33228; 80053; 85025; 85610; 85730; 93005; C1785; J0690; J1170; J2250; J3010; J7040; 33264

== ENCOUNTER 2019-02-01 16:26 | Emergency (ER) | payer MEDICARE, OTHER ==
[~2019-02-01] VITALS: Ht 152.4 cm; Wt 65.9 kg
[2019-02-01 16:38] VITALS: Ht 152.4 cm; Wt 65.9 kg
[2019-02-01 20:39] VITALS: BP 95/54; PULSE 72; RESP 17
== END 2019-02-01 20:53 | disposition home or self-care (01) ==
LOC: E/R 16:26
DX: D64.9 Anemia, unspecified (principal); I11.0 Hypertensive heart disease with heart failure; I50.9 Heart failure, unspecified; J44.9 Chronic obstructive pulmonary disease, unspecified; Z85.831 Personal history of malignant neoplasm of soft tissue; Z95.0 Presence of cardiac pacemaker; Z96.653 Presence of artificial knee joint, bilateral
CPT/HCPCS: 36415; 71045; 80053; 83690; 85025

== ENCOUNTER 2019-04-11 11:34 | Inpatient (IN) | payer MEDICARE, OTHER ==
[~2019-04-11] VITALS: Ht 152.4 cm; Wt 61.6 kg
[~2019-04-11 11:34] MED LIST changes: -ATRO INHALATION; -DOCUSATE; -DOXE25CA2 PO; +FESO4TAB PO; +FINA5TAB4 PO; -FURO20TA3 PO; -LACT1CAP49 PO; +MEG40/1 PO; -METO-335 PO; -MONTELUKAST; +OMEG1CAP2 PO; -SAW/1TAB2 PO; +SAW1CAPS PO; +UDREG PO; +[UNRECOGNIZED DRUG - CODE] SL; -[UNRECOGNIZED DRUG - OTHER]
[2019-04-11 11:43] VITALS: Ht 152.4 cm; Wt 61.6 kg
[2019-04-11] MEDS ORDERED: PANTOPRAZOLE 40 MG INJ IV ONE (14:30)
[2019-04-11] MEDS ORDERED: ACETAMINOPHEN 325 MG TAB PO PRN ×2 (14:30→18:30)
[2019-04-11] MEDS ORDERED: ONDANSETRON 4 MG INJ IV PRN ×2 (14:30→18:30)
[2019-04-11] MEDS: DEXTROSE 5%-0.45% NACL 1,000 ML IV SCH (18:25)
[2019-04-11] MEDS ORDERED: morphine 2 MG INJ IV PRN (18:30)
[2019-04-11] MEDS ORDERED: IPRATROPIUM BROMIDE NS PRN (18:30)
[2019-04-11] MEDS ORDERED: NACL 0.9% 3 ML SYG IV SCH (18:30)
[2019-04-11] MEDS ORDERED: HYDROCODONE/APAP (5/325) TAB PO PRN (18:30)
[2019-04-11] MEDS ORDERED: ZOLPIDEM 5 MG TAB PO PRN (18:30)
[2019-04-11] MEDS: PANTOPRAZOLE 40 MG INJ IV SCH (19:45)
[2019-04-11] MEDS: AMIODARONE 200 MG TAB PO SCH (20:08)
[2019-04-11] MEDS ORDERED: NON-FORMULARY/PATIENT OWN MED (Icosapent Ethyl (Vascepa) 2 GM) PO SCH (21:00)
[2019-04-11] MEDS ORDERED: NON-FORMULARY/PATIENT OWN MED (Azelastine/Fluticasone (Dymista Nasal Spray) 1 SPRAY) NASAL SCH (21:00)
[2019-04-11] MEDS: FISH OIL 1,000 MG CAP PO SCH (21:14)
[2019-04-11] MEDS: ALFUZOSIN (SR) 10 MG TAB PO SCH (21:15)
[2019-04-11] MEDS: MEGESTROL (40 MG/ML) 10ML CUP PO SCH (21:15)
[2019-04-11] MEDS: MONTELUKAST 10 MG TAB PO SCH (21:15)
[2019-04-11] MEDS: GABAPENTIN 300 MG CAP PO SCH (21:16)
[2019-04-11] MEDS: AZELASTINE 30 ML NAS SPRAY NASAL SCH (21:17)
[2019-04-11] MEDS: FLUTICASONE 0.05% 16 GM NAS SPRAY NASAL SCH (21:47)
[2019-04-12] MEDS: PANTOPRAZOLE 40 MG INJ IV SCH ×2 (07:05→17:34)
[2019-04-12] MEDS: FISH OIL 1,000 MG CAP PO SCH ×2 (08:54→21:02)
[2019-04-12] MEDS: FINASTERIDE 5 MG TAB PO SCH (08:54)
[2019-04-12] MEDS: LEVOTHYROXINE 100 MCG TAB PO SCH (08:54)
[2019-04-12] MEDS: AZELASTINE 30 ML NAS SPRAY NASAL SCH ×2 (08:55→21:06)
[2019-04-12] MEDS: FLUTICASONE 0.05% 16 GM NAS SPRAY NASAL SCH ×2 (08:55→21:06)
[2019-04-12] MEDS: MEGESTROL (40 MG/ML) 10ML CUP PO SCH ×2 (09:00→21:02)
[2019-04-12] MEDS: DEXTROSE 5%-0.45% NACL 1,000 ML IV SCH ×2 (12:00→21:05)
[2019-04-12 13:18] VITALS: BP 124/61; PULSE 77; RESP 20
[2019-04-12 15:23] VITALS: BP 119/57; PULSE 79; RESP 20
[2019-04-12 20:00] VITALS: BP 104/53; PULSE 98; RESP 20
[2019-04-12] MEDS: MONTELUKAST 10 MG TAB PO SCH (21:02)
[2019-04-12] MEDS: ALFUZOSIN (SR) 10 MG TAB PO SCH (21:02)
[2019-04-12] MEDS: GABAPENTIN 300 MG CAP PO SCH (21:02)
[2019-04-13] VITALS (9 sets, daily range): BP systolic 92–143; BP diastolic 54–64; PULSE 72–85; RESP 18–20
[2019-04-13] MEDS: DEXTROSE 5%-0.45% NACL 1,000 ML IV SCH ×2 (03:08→22:13)
[2019-04-13] MEDS: PANTOPRAZOLE 40 MG INJ IV SCH ×2 (05:40→17:35)
[2019-04-13] MEDS: LEVOTHYROXINE 100 MCG TAB PO SCH (07:34)
[2019-04-13] MEDS: AZELASTINE 30 ML NAS SPRAY NASAL SCH ×2 (08:47→21:12)
[2019-04-13] MEDS: FLUTICASONE 0.05% 16 GM NAS SPRAY NASAL SCH ×2 (08:47→21:12)
[2019-04-13] MEDS: MEGESTROL (40 MG/ML) 10ML CUP PO SCH ×2 (08:48→21:09)
[2019-04-13] MEDS: FINASTERIDE 5 MG TAB PO SCH (08:48)
[2019-04-13] MEDS: FISH OIL 1,000 MG CAP PO SCH ×2 (08:48→21:10)
[2019-04-13] MEDS: CYANOCOBALAMIN 500 MCG TAB PO SCH (10:00)
[2019-04-13] MEDS ORDERED: LIDOCAINE 2% (SDV) 5 ML INJ ONE (12:24)
[2019-04-13] MEDS ORDERED: PROPOFOL 20 ML ONE (12:24)
[2019-04-13] MEDS ORDERED: ALBUTEROL 0.083% (NEB) 2.5 MG/3 ML AMP HHN PRN (13:00)
[2019-04-13] MEDS ORDERED: LABETALOL HCL 20MG INJ IV PRN (13:00)
[2019-04-13] MEDS ORDERED: DIPHENHYDRAMINE 50 MG INJ IV PRN (13:00)
[2019-04-13] MEDS ORDERED: FENTAnyl 50 MCG/ML VIAL IV PRN (13:00)
[2019-04-13] MEDS ORDERED: ACETAMINOPHEN 500 MG TAB PO PRN (13:00)
[2019-04-13] MEDS ORDERED: ONDANSETRON 4 MG INJ IV PRN (13:00)
[2019-04-13] MEDS: MAGNESIUM SULFATE 1 GM/D5W 100 ML IV SCH ×3 (13:45→15:52)
[2019-04-13] MEDS ORDERED: SOD FERRIC GLUC COMPLX 125 MG in SOD CHLORIDE 0.9% 100 ML IVPB ONE (14:00)
[2019-04-13] MEDS: SUCRALFATE 1 GM TAB PO SCH ×2 (17:27→21:15)
[2019-04-13] MEDS: AMIODARONE 200 MG TAB PO SCH (17:35)
[2019-04-13] MEDS: METOCLOPRAMIDE (1 MG/ML) 10 ML CUP PO SCH ×2 (17:36→21:10)
[2019-04-13] MEDS ORDERED: METOCLOPRAMIDE (1 MG/ML) 10 ML CUP PO SCH (18:00)
[2019-04-13] MEDS: ALFUZOSIN (SR) 10 MG TAB PO SCH (21:10)
[2019-04-13] MEDS: GABAPENTIN 300 MG CAP PO SCH (21:10)
[2019-04-13] MEDS: MONTELUKAST 10 MG TAB PO SCH (21:10)
[2019-04-14 03:37] VITALS: BP 96/52; PULSE 79; RESP 18
[2019-04-14] MEDS: PANTOPRAZOLE 40 MG INJ IV SCH ×2 (05:56→17:19)
[2019-04-14] MEDS: METOCLOPRAMIDE (1 MG/ML) 10 ML CUP PO SCH ×4 (05:56→21:25)
[2019-04-14] MEDS: LEVOTHYROXINE 100 MCG TAB PO SCH (05:56)
[2019-04-14 07:57] VITALS: BP 106/59; PULSE 76; RESP 20
[2019-04-14] MEDS: FISH OIL 1,000 MG CAP PO SCH ×2 (09:26→21:25)
[2019-04-14] MEDS: CYANOCOBALAMIN 500 MCG TAB PO SCH (09:27)
[2019-04-14] MEDS: FINASTERIDE 5 MG TAB PO SCH (09:27)
[2019-04-14] MEDS: MEGESTROL (40 MG/ML) 10ML CUP PO SCH ×2 (09:27→21:25)
[2019-04-14] MEDS: SUCRALFATE 1 GM TAB PO SCH ×4 (09:27→21:25)
[2019-04-14] MEDS: FLUTICASONE/VILANTEROL 100-25 INH SCH (09:28)
[2019-04-14] MEDS: AZELASTINE 30 ML NAS SPRAY NASAL SCH ×2 (09:29→21:26)
[2019-04-14] MEDS: FLUTICASONE 0.05% 16 GM NAS SPRAY NASAL SCH ×2 (09:29→21:26)
[2019-04-14 11:39] VITALS: BP 118/57; PULSE 76; RESP 20
[2019-04-14] MEDS: DEXTROSE 5%-0.45% NACL 1,000 ML IV SCH (11:58)
[2019-04-14] MEDS: SOD FERRIC GLUC COMPLX 125 MG in SOD CHLORIDE 0.9% 100 ML IVPB SCH (12:52)
[2019-04-14 15:04] VITALS: BP 132/66; PULSE 76; RESP 20
[2019-04-14] MEDS: PANTOPRAZOLE (EC) 40 MG TAB PO SCH (17:49)
[2019-04-14] MEDS: FLUCONAZOLE 200 MG TAB PO SCH (18:04)
[2019-04-14 19:43] VITALS: BP 109/53; PULSE 73; RESP 18
[2019-04-14] MEDS: MONTELUKAST 10 MG TAB PO SCH (21:25)
[2019-04-14] MEDS: GABAPENTIN 300 MG CAP PO SCH (21:25)
[2019-04-14] MEDS: ALFUZOSIN (SR) 10 MG TAB PO SCH (21:25)
[2019-04-14] MEDS: ALBUTEROL 0.083% (NEB) 2.5 MG/3 ML AMP HHN PRN (21:52)
[2019-04-14 23:42] VITALS: BP 98/54; PULSE 78; RESP 18
[2019-04-15 03:38] VITALS: BP 108/53; PULSE 76; RESP 18
[2019-04-15] MEDS: METOCLOPRAMIDE (1 MG/ML) 10 ML CUP PO SCH ×2 (06:29→12:30)
[2019-04-15] MEDS: PANTOPRAZOLE (EC) 40 MG TAB PO SCH (06:29)
[2019-04-15] MEDS: LEVOTHYROXINE 100 MCG TAB PO SCH (06:29)
[2019-04-15] MEDS: ALBUTEROL 0.083% (NEB) 2.5 MG/3 ML AMP HHN PRN (07:16)
[2019-04-15 07:49] VITALS: BP 98/47; PULSE 79
[2019-04-15] MEDS: SUCRALFATE 1 GM TAB PO SCH ×2 (08:40→12:30)
[2019-04-15] MEDS: FINASTERIDE 5 MG TAB PO SCH (08:40)
[2019-04-15] MEDS: CYANOCOBALAMIN 500 MCG TAB PO SCH (08:40)
[2019-04-15] MEDS: MEGESTROL (40 MG/ML) 10ML CUP PO SCH (08:40)
[2019-04-15] MEDS: FLUCONAZOLE 200 MG TAB PO SCH (08:40)
[2019-04-15] MEDS: FISH OIL 1,000 MG CAP PO SCH (08:40)
[2019-04-15] MEDS: FLUTICASONE/VILANTEROL 100-25 INH SCH (08:41)
[2019-04-15] MEDS: AZELASTINE 30 ML NAS SPRAY NASAL SCH (08:41)
[2019-04-15] MEDS: FLUTICASONE 0.05% 16 GM NAS SPRAY NASAL SCH (08:42)
[2019-04-15 11:50] VITALS: BP 107/56; PULSE 80; RESP 18
[2019-04-15] MEDS: SOD FERRIC GLUC COMPLX 125 MG in SOD CHLORIDE 0.9% 100 ML IVPB SCH (12:31)
[2019-04-15 15:24] VITALS: BP 120/56; PULSE 89; RESP 18
[2019-04-15] MEDS ORDERED: MAGNESIUM HYDROXIDE 30ML CUP PO ONE (16:00)
== END 2019-04-15 18:25 | disposition home or self-care (01) | DRG 378 ==
LOC: E/R 11:34 → 6WM 14:19 → OBSVTOIN 04-14 12:29
PROVIDERS: ADMIT Internal Medicine; ATTEND Internal Medicine
PROC: 0DB68ZX Excision of Stomach, Via Natural or Artificial Opening Endoscopic, Diagnostic (ICD-10-PCS; 2019-04-13)
PROC: 0DB58ZX Excision of Esophagus, Via Natural or Artificial Opening Endoscopic, Diagnostic (ICD-10-PCS; principal; 2019-04-13 12:30)
DX: K25.0 Acute gastric ulcer with hemorrhage (principal); I48.20 Chronic atrial fibrillation, unspecified; N13.8 Other obstructive and reflux uropathy; I50.22 Chronic systolic (congestive) heart failure; D50.9 Iron deficiency anemia, unspecified; E78.2 Mixed hyperlipidemia; E03.9 Hypothyroidism, unspecified; H91.90 Unspecified hearing loss, unspecified ear; I11.0 Hypertensive heart disease with heart failure; J44.9 Chronic obstructive pulmonary disease, unspecified; K92.1 Melena; M19.90 Unspecified osteoarthritis, unspecified site; N40.1 Benign prostatic hyperplasia with lower urinary tract symptoms; Z87.891 Personal history of nicotine dependence; Z95.0 Presence of cardiac pacemaker; Z79.01 Long term (current) use of anticoagulants
CPT/HCPCS: 36415; 80048; 80053; 82941; 83540; 83735; 84484; 85025; 85610; 85730; 86850; 86900; 86901; 88305; 88312; 88313; 88342; 93005; 94640; 94664; G0378; C9113; J2916; J3475; J7042